=== PATIENT | female | born 1980 | race Caucasian/White ===

== ENCOUNTER 2020-05-12 09:48 | Emergency (ER) | payer OTHER, SELFPAY ==
[2020-05-12 10:01] VITALS: BP 137/81; PULSE 117; RESP 20; TEMP 36.6; O2SAT 100; BMI 25.7
[2020-05-12] MEDS: LORazepam 2 MG/ML VIAL IM ×2 (10:16→10:17)
[2020-05-12] MEDS: Haloperidol Lactate 5 MG/ML VIAL IM (10:16)
--- NOTE | 2020-05-12 10:25 | PC.NURSE ---
PT WILLINGLY RECEIVED THE MEDICATIONS
--- NOTE | 2020-05-12 10:27 | PC.NURSE ---
PT IS MORE COOPERATIVE, RESTING QUIETLY ON THE BED
--- NOTE | 2020-05-12 11:06 | ED.ALCOHOL ---
HPI - Alcohol General Chief Complaint: ETOH/Substance Use Stated Complaint: DETOX Time Seen by Provider: 05/12/20 10:01 Source: EMS Mode of arrival: ambulatory Limitations: no limitations History of Present Illness HPI narrative: Patient presents to ED for alcohol substance abuse. Patient does not want detox. Patient initially came in screaming and then voluntary accepted Ativan and Haldol. patient admits to drinking alcohol Related Data Allergies Allergy/AdvReac Type Severity Reaction Status Date / Time acetaminophen Allergy Unknown ITCHING Unverified 04/06/20 15:19 [From Tylenol-Codeine #2] codeine Allergy Unknown ITCHING Unverified 04/06/20 15:19 [From Tylenol-Codeine #2] naloxone [From NARCAN] Allergy Unknown ITCHING, Unverified 04/06/20 15:19 HIVES, THROAT CLOSES Narcan Allergy Unknown itching Uncoded 05/17/16 00:00 TUNA FISH Allergy Unknown UNKNOWN Uncoded 04/06/20 15:19 Review of Systems Review of Systems: patient denies any physical complaints. Patient just wants to be left alone. Yes all other systems are reviewed and are negative [facility] Social History Social History Advance Directives: No Advance Directives Information Provided: Yes Physical Exam Vital Signs: Vital Signs: Vital Signs Temp Pulse Resp BP Pulse Ox 05/12/20 11:41 18 95 05/12/20 10:01 98 F 117 H 20 137/81 100 Body Mass Index 25.7 Const: General: cooperative, healthy appearing, comfortable and no acute distress Orientation/consciousness: patient oriented x3 HENMT: Head: Yes normal to inspection, No No palpable skull fracture present, No Cook's sign, No contusion, No hematoma, No laceration, No palpable skull fracture and No raccoon eyes Neck: Neck: Yes normal visual inspection Chest: Chest palpation & inspection: normal inspection of the chest and normal palpation of entire chest wall Resp: Effort & Inspection: normal respiratory effort and able to speak in complete sentences Cardio: Jugular venous distension: no JVD Heart sounds: S1 normal heart sound present and S2 normal heart sound present GI: Inspection: Yes normal to inspection Percussion: Yes normal to percussion Auscultation: normal bowel sounds : General: No CVA tenderness and Yes no CVA tenderness Back/Spine/Pelvis: Back: no CVA tenderness, No CVA tenderness and No back tenderness Skin: General skin exam: no rashes or lesions noted Neuro: General: patient oriented x3 Extrem: General: Yes normal to inspection Course Course Course Narrative: Patient presently sleeping after Ativan and Haldol. No signs of trauma. Will discharge after being re-evaluated when awake. Reevaluation(s) Reevaluation #1: patient is already awake walking. Patient alert oriented x3. Patient does not want detox. Mother is in waiting room to order picker/assembler patient for discharge. Time: 11:36 Reevaluation #2: patient went back to bed and is now sleeping. Spoke with mother who be called back to order picker/assembler patient. Mother states patient recently relapsed on alcohol due to her breaking up with her boyfriend. Time: 12:15 Reevaluation #3: Patient's mother came to the ED and picked her up. Mother states she will try to get patient into detox program when patient requests detox. patient presently does not want detox Time: 13:26 MDM - Alcohol MDM Narrative Medical decision making narrative: ETOH/Substance abuse Differential Diagnosis Differential diagnosis: Likely alcohol dependence Discharge Plan Discharge Clinical Impression: Substance abuse Patient Disposition: Elopement Instructions: Polysubstance Abuse (ED) Additional Instructions: Return to the ED for any suicidal / homicidal ideation, auditory / visual hallucinations, physical complaints, or any other concerning symptoms. Referrals: Hadley cJ MD [Primary Care Provider] - 2 days ( Recommend detox.) Interventions: ED Discharge Assessment Last Done: 05/12/20 13:13 Discharge Date/Time: 05/12/20 13:15 Print Language: Omani
[2020-05-12 11:41] VITALS: RESP 18; O2SAT 95
== END 2020-05-12 13:15 | disposition left against medical advice (07) ==
PROVIDERS: Emergency Provider Emergency Medicine; PCP Internal Medicine
DX: F10.10 Alcohol abuse, uncomplicated (principal); Y90.9 Presence of alcohol in blood, level not specified
CPT/HCPCS: 96372; 99284; J2060

== ENCOUNTER 2020-08-11 17:16 | Outpatient (REF) | payer OTHER, SELFPAY | END 2020-08-11 17:17 | disposition home or self-care (01) | LOC: HO.LAB 17:16 | PROVIDERS: Visit Provider Internal Medicine | DX: Z20.822 Contact with and (suspected) exposure to COVID-19 (principal) | CPT/HCPCS: 36415; C9803; U0003 ==

== ENCOUNTER 2020-11-06 12:08 | Outpatient (REF) | payer OTHER, SELFPAY ==
[2020-11-06 12:36] LABS: COVID-19 Test Negative (Negative)
== END 2020-11-06 12:09 | disposition home or self-care (01) ==
LOC: HO.LAB 12:08
PROVIDERS: Visit Provider Internal Medicine
DX: Z20.822 Contact with and (suspected) exposure to COVID-19 (principal)
CPT/HCPCS: 36415; 87635; C9803

== ENCOUNTER 2021-04-09 21:57 | Emergency (ER) | payer OTHER, SELFPAY ==
[2021-04-09 22:11] VITALS: BP 140/84; PULSE 99; RESP 16; TEMP 36.8; O2SAT 97; BMI 28.7
--- NOTE | 2021-04-09 22:36 | ED_ITS ---
HPI - Abdominal Pain General Chief Complaint: Abdominal Pain Stated Complaint: abd pain Time Seen by Provider: 04/09/21 22:11 Source: patient and EMS Mode of arrival: EMS Limitations: no limitations History of Present Illness HPI narrative: 40 yo female with past medical history of anxiety, depression, pancreatitis, alcohol abuse, substance abuse on methadone daily here with complaints of upper abdominal pain x 3 days with nausea. No vomiting. Patient tells me she has been on an binge drinking alcohol daily for 4 days d/t anxiety. No diarrhea, constipation, urinary symptoms, fevers, chills. Related Data Home Medications Medication Instructions Recorded Confirmed polyethylene glycol 3350 17 17 g PO DAILY 05/24/20 12/12/20 gram/dose oral powder methadone 10 mg/mL oral concentrate 179 mg PO DAILY ml 09/28/20 12/12/20 Previous Rx's Medication Instructions Recorded ondansetron 4 mg disintegrating 4 mg PO Q6H PRN #30 tab 05/18/20 tablet nicotine 21 mg/24 hr daily 1 patch TRANSDERMAL DAILY 7 Days 09/21/20 transdermal patch #7 ea nicotine 7 mg/24 hr daily 1 patch TRANSDERMAL Q24H 14 Days 12/12/20 transdermal patch #14 ea amitriptyline 50 mg tablet 50 mg PO BEDTIME #30 tab 02/05/21 nicotine 14 mg/24 hr daily 1 patch TRANSDERMAL DAILY 7 Days 03/13/21 transdermal patch #7 ea lorazepam 2 mg tablet 2 mg PO BID PRN 30 Days #60 tab 04/05/21 Allergies Allergy/AdvReac Type Severity Reaction Status Date / Time codeine Allergy Mild ITCHING Verified 12/12/20 09:49 [From Tylenol-Codeine #2] naloxone [From NARCAN] Allergy Unknown ITCHING, Verified 12/12/20 09:49 HIVES, THROAT CLOSES clonazepam AdvReac Mild headaches,d Verified 12/12/20 09:49 izziness TUNA FISH Allergy Unknown UNKNOWN Uncoded 12/12/20 09:49 Review of Systems Review of Systems Yes all other systems are reviewed and are negative Constitutional: Reports no additional constitutional complaints, Denies body ache(s), Denies chills, Denies fever(s), Denies headache(s) and Denies weakness Eyes: Reports no additional eye complaints and Denies change in vision Reports system reviewed and no additional complaints, except as documented, Seun es dizziness, Denies headache(s), Denies nasal congestion, Denies nasal discharge and Denies neck pain Cardiovascular: Reports no additional cardiovascular complaints, Denies chest pain, Denies leg edema and Denies dyspnea Respiratory: Reports no additional respiratory complaints, Denies cough and Denies dyspnea Gastrointestinal: Reports no additional gastrointestinal complaints, Reports abdominal pain, Denies diarrhea, Reports nausea and Denies vomiting Genitourinary: Reports no additional female genitourinary complaints and Denies urinary incontinence Musculoskeletal: Reports no additional musculoskeletal complaints, Denies back pain, Denies arthralgias, Denies joint swelling, Denies neck pain, Denies numbness and Denies tingling Skin/Breast: Reports system reviewed and no additional complaints, except as docu and Denies rash Reports system reviewed and no additional complaints, except as documented, Denies Abnormal speech present, Denies dizziness, Denies headache(s), Denies numbness, Denies tingling and Denies weakness Physical Exam Vital Signs: Vital Signs: Last Vital Signs Temp 98.3 F 04/09/21 22:11 Pulse 99 04/09/21 22:11 Resp 16 04/09/21 22:11 BP 140/84 H 04/09/21 22:11 Pulse Ox 97 04/09/21 22:11 Body Mass Index 28.7 Const: General: cooperative, healthy appearing, comfortable and no acute distress Orientation/consciousness: patient oriented x3 Limitations: no limitations HENMT: Head: Yes normal to inspection Ears: hearing grossly normal bilaterally General nose exam: Normal external nose present Face and sinus: Yes normal facial exam Mouth: Normal oral and palatal mucosa present Throat: Yes posterior oropharynx normal Eyes: General: appearance normal, both eyes and all related structures Pupils: Equal, round and reactive pupils present Neck: Neck: Yes normal visual inspection Chest: Chest palpation & inspection: normal inspection of the chest Resp: Effort & Inspection: normal respiratory effort Auscultation: clear to auscultation bilaterally Cardio: Rate: regular rate Rhythm: regular rhythm Peripheral pulses: Peripheral pulses 2+ throughout GI: Inspection: Yes normal to inspection Palpation (GI): Soft to palpation and Tenderness to palpation present (GI) (epigastric. no rebound or guarding ) Auscultation: normal bowel sounds Back/Spine/Pelvis: Thoracic/Lumbar Spine: thoracic and lumbar spine normal to inspection Skin: General skin exam: no rashes or lesions noted Neuro: General: patient oriented x3, no focal motor deficits and normal sensation to monofilament Cranial nerves: Yes Equal, round and reactive pupils present Cognition (Neuro): normal cognition Speech: No Abnormal speech present Gait exam (Neuro): Normal gait present Motor exam (neuro): 5/5 motor strength present throughout Extrem: General: Yes normal to inspection, Yes no pedal edema and Yes no calf tenderness Course Course Course Narrative: 40 yo female here with upper abdominal pain x 3 days with nausea. ALso feeling anxious, wants to speak to someone . No SI. Has been on a binge drinking alcohol last 3-4 days On exam has some mild tenderness in the epigastric with no rebound or guarding. Will check labs, UA. Will give GI cocktail. Place consult for care team [id number]-Sign out to night team pending above. MDM - Abdominal Pain Differential Diagnosis Differential diagnosis: Likely gastritis and pancreatitis Medical Records Attestation: I reviewed the patient's medical records. Lab Data Attestation: I reviewed the patient's lab results. Result diagrams: 04/10/21 00:41 04/10/21 00:41 Discharge Plan Discharge Clinical Impression: Anxiety Prescriptions: No Action nicotine 21 mg/24 hr patch 24 hour 1 patch transdermal DAILY 7 Days Qty: 7 RF: 0 amitriptyline 50 mg tablet 50 mg PO BEDTIME Qty: 30 RF: 3 nicotine 14 mg/24 hr patch 24 hour 1 patch transdermal DAILY 7 Days Qty: 7 RF: 0 lorazepam 2 mg tablet 2 mg PO BID PRN (Reason: anxiety) 30 Days Qty: 60 RF: 0 methadone 10 mg/mL concentrate 179 mg PO DAILY RF: 0 nicotine 7 mg/24 hr patch 24 hour 1 patch transdermal Q24H 14 Days Qty: 14 RF: 3 ondansetron 4 mg tablet,disintegrating 4 mg PO Q6H PRN (Reason: nausea and vomiting) Qty: 30 RF: 0 polyethylene glycol 3350 17 gram/dose powder 17 g PO DAILY RF: 0 PMFSH Past Medical History Attestation statement: The following information was validated with the patient. Source: old records reviewed and nursing notes reviewed Medical History Anxiety Cellulitis of left ankle Chronic pancreatitis Constipation History of seizures History of substance abuse Insomnia Overweight (BMI 25.0-29.9) Smoker Surgical History No pertinent past surgical history Family History Family History Father Hypertension Mother Medical history unknown Paternal Grandmother Lung cancer Paternal Grandfather Bone cancer Maternal Uncle Mouth cancer Social History Social History Alcohol intake: former Substance Use Type: Heroin and Opiates Advance Directives: No Advance Directives Information Provided: No
[2021-04-09] MEDS: Magnesium Hydrox/Alum Hydrox 30 ML ORAL.SUSP PO (23:19)
[2021-04-09] MEDS: Lidocaine HCl Viscous 2 % 15 ML SOLUTION MUCOUS MEM (23:20)
[2021-04-10 00:45] LABS: MANUAL DIFF FLAG NO
[2021-04-10 00:46] LABS: Basophils Percent Auto 0.4 % (0-2); Eosinophils Absolute Auto 0.1 X10*3/uL (0.0-0.4); Eosinophils Percent Auto 1.4 % (0-4); Hematocrit 31.7 % (37-47); Imm Gran Abs Auto 0.01 X10*3/uL (0.00-0.03); Imm Gran Pct Auto 0.2 % (0.0-0.4); Lymphocytes Absolute Auto 2.6 X10*3/uL (1.2-4.9); Mean Corpuscular HGB Conc 34.7 g/dl (31.0-35.0); Mean Corpuscular Hemoglobin 29.8 pg (27.0-33.0); Mean Corpuscular Volume 85.9 fL (80-98); Mean Platelet Volume 11.3 fL (9.4-12.3); Monocytes Absolute Auto 0.4 X10*3/uL (0.1-1.2); Monocytes Percent Auto 7.2 % (2-11); Neutrophils Absolute Auto 2.1 X10*3/uL (2.0-8.3); Neutrophils Percent Auto 40.8 % (45-73); Platelet Count 225 X10*3/uL (160-400); Red Blood Count 3.69 X10*6/uL (4.20-5.50); Red Cell Distribution Width 12.4 % (11.0-16.0); White Blood Count 5.2 X10*3/uL (4.8-10.8)
[2021-04-10 01:01] LABS: Ethanol 206 mg/dL
[2021-04-10 01:03] LABS: Alanine Aminotransferase 41 U/L (0-31); Albumin Level 4.1 g/dL (3.5-5.0); Alkaline Phosphatase 71 U/L (39-117); Anion Gap 13 (12-20); Aspartate Amino Transferase 37 U/L (5-31); Bilirubin Direct < 0.2 mg/dL (0.0-0.5); Bilirubin Total 0.3 mg/dL (0.0-1.0); Blood Urea Nitrogen 10 mg/dL (9-16); Calcium 8.9 mg/dL (8.4-10.2); Carbon Dioxide 26 mmol/L (22-29); Chloride 105 mmol/L (96-108); Creatinine Clr Calc Pharmacy 82.6; Estimated Glomerular Filt Rate > 60; Glucose Random 98 mg/dL (60-115); Lipase 35 U/L (8-78); Potassium 3.9 mmol/L (3.3-5.1); Sodium 140 mmol/L (135-145); Total Protein 6.9 g/dL (6.5-8.0)
[2021-04-10 02:37] VITALS: BP 123/81; PULSE 97; RESP 16; O2SAT 98
[2021-04-10] MEDS: Omeprazole 40 MG CAPSULE.DR PO (02:38)
== END 2021-04-10 02:42 | disposition home or self-care (01) ==
PROVIDERS: Nurse Practitioner Family; Emergency Provider Emergency Medicine
DX: R10.10 Upper abdominal pain, unspecified (principal); F41.1 Generalized anxiety disorder; F43.0 Acute stress reaction; F11.90 Opioid use, unspecified, uncomplicated; Z87.891 Personal history of nicotine dependence; Z79.899 Other long term (current) drug therapy
CPT/HCPCS: 36415; 80048; 80076; 82077; 83690; 85025; 99284

== ENCOUNTER 2021-04-12 01:40 | Emergency (ER) | payer OTHER, SELFPAY | END 2021-04-12 02:15 | disposition left against medical advice (07) | PROVIDERS: Emergency Provider Emergency Medicine; PCP Internal Medicine | DX: R10.9 Unspecified abdominal pain (principal); R11.10 Vomiting, unspecified ==

== ENCOUNTER 2021-04-14 16:17 | Emergency (ER) | payer OTHER, SELFPAY ==
[2021-04-14 16:24] VITALS: BP 132/75; PULSE 88; O2SAT 100
[2021-04-14 16:27] VITALS: BP 137/80; PULSE 87; RESP 18; TEMP 36.7; O2SAT 99; BMI 29.0
--- NOTE | 2021-04-14 16:34 | ED.GENADULT ---
HPI - General Adult General Chief complaint: General Medical Stated complaint: ABD PAIN,?AMS D/T PRESCIPTION MEDS Time Seen by Provider: 04/14/21 16:34 Source: patient Mode of arrival: EMS Limitations: no limitations History of Present Illness HPI narrative: Patient came from home by ambulance for abdominal pain for last 1 week nausea unable take much food on arrival patient been seen drowsy and sleepy said that she took 2 Ativan tab prior to arrival been drinking for last 2 days missed her methadone today patient states that had history of pancreatitis in the past Related Data Home Medications Medication Instructions Recorded Confirmed polyethylene glycol 3350 17 17 g PO DAILY 05/24/20 12/12/20 gram/dose oral powder methadone 10 mg/mL oral concentrate 179 mg PO DAILY ml 09/28/20 12/12/20 Previous Rx's Medication Instructions Recorded ondansetron 4 mg disintegrating 4 mg PO Q6H PRN #30 tab 05/18/20 tablet nicotine 21 mg/24 hr daily 1 patch TRANSDERMAL DAILY 7 Days 09/21/20 transdermal patch #7 ea nicotine 7 mg/24 hr daily 1 patch TRANSDERMAL Q24H 14 Days 12/12/20 transdermal patch #14 ea amitriptyline 50 mg tablet 50 mg PO BEDTIME #30 tab 02/05/21 nicotine 14 mg/24 hr daily 1 patch TRANSDERMAL DAILY 7 Days 03/13/21 transdermal patch #7 ea lorazepam 2 mg tablet 2 mg PO BID PRN 30 Days #60 tab 04/05/21 omeprazole 40 mg capsule,delayed 40 mg PO DAILY #30 cap 04/10/21 release sucralfate 1 gram tablet 1 g PO TID #90 tab 04/10/21 omeprazole 40 mg capsule,delayed 40 mg PO DAILY #30 cap 04/14/21 release Allergies Allergy/AdvReac Type Severity Reaction Status Date / Time codeine Allergy Mild ITCHING Verified 12/12/20 09:49 [From Tylenol-Codeine #2] naloxone [From NARCAN] Allergy Unknown ITCHING, Verified 12/12/20 09:49 HIVES, THROAT CLOSES clonazepam AdvReac Mild headaches,d Verified 12/12/20 09:49 izziness TUNA FISH Allergy Unknown UNKNOWN Uncoded 12/12/20 09:49 Review of Systems Review of Systems: Yes all other systems are reviewed and are negative PMFSH Past Medical History Medical History Anxiety Cellulitis of left ankle Chronic pancreatitis Constipation History of seizures History of substance abuse Insomnia Overweight (BMI 25.0-29.9) Smoker Surgical History No pertinent past surgical history Family History Family History Father Hypertension Mother Medical history unknown Paternal Grandmother Lung cancer Paternal Grandfather Bone cancer Maternal Uncle Mouth cancer Social History Social History Alcohol intake: current Alcohol intake frequency: other Alcohol type: hard liquor Patient Tobacco Use Status: Current everyday Tobacco user Substance Use Type: Unknown Advance Directives: No Advance Directives Information Provided: No Patient : No Physical Exam Vital Signs: Vital Signs: Last Vital Signs Temp 98.0 F 04/14/21 16:27 Pulse 87 04/14/21 16:27 Resp 18 04/14/21 16:27 BP 137/80 04/14/21 16:27 Pulse Ox 99 04/14/21 16:27 Body Mass Index 29.0 Appearance: Alert. Oriented X3. No acute distress. Drowsy slipping off easily Eyes: PERRLA, No Nystagmus ENT: Pharynx normal. Oral Mucosa moist Neck: Normal inspection. Neck supple. CVS: Normal heart rate and rhythm. Pulses normal. Respiratory: No respiratory distress. Equal air entry bilateral, no wheezing/rales/rhonchi Abdomen: Soft and diffuse abdominal tenderness Bowel sounds are present, no mass palpable, no CVA tenderness Skin: Skin warm and dry. Normal skin color. Normal skin turgor. Extremities: No lower extremity edema. No calf tenderness Neuro: Oriented X 3. No motor deficit. No sensory deficit. Medical Decision Making MDM Narrative Medical decision making narrative: Patient's history of alcohol abuse took to benzo before each came last drink was yesterday afraid of drinking again asking for help to get care team to talk to the patient. Workup is negative show urine tox showed only benzos patient alert oriented x3 at this time eating food in the ER with discharge patient home Lab Data Lab results reviewed: Yes I reviewed the patient's lab results. Result diagrams: 04/14/21 17:29 04/14/21 17:29 Labs: Lab Results 0904/14/21 04/14/21 Range/Units 17:29 17:29 17:29 WBC 9.2 (4.8-10.8) X10*3/uL RBC 3.86 L (4.20-5.50) X10*6/uL Hgb 11.6 L (12.0-16.0) g/dl Hct 32.5 L (37-47) % MCV 84.2 (80-98) fL MCH 30.1 (27.0-33.0) pg MCHC 35.7 H (31.0-35.0) g/dl RDW 12.8 (11.0-16.0) % Plt Count 201 (160-400) X10*3/uL MPV 11.0 (9.4-12.3) fL Immature Gran % (Auto) 0.2 (0.0-0.4) % Neut % (Auto) 76.1 H (45-73) % Lymph % (Auto) 19.3 L (20-40) % [place] % (Auto) 4.1 (2-11) % Eos % (Auto) 0.1 (0-4) % Baso % (Auto) 0.2 (0-2) % Lymph # (Auto) 1.8 (1.2-4.9) X10*3/uL [place] # (Auto) 0.4 (0.1-1.2) X10*3/uL Eos # (Auto) 0.0 (0.0-0.4) X10*3/uL Baso # (Auto) 0.0 (0.0-0.2) X10*3/uL Abs Immat Gran (auto) 0.02 (0.00-0.03) X10*3/uL Absolute Neuts (auto) 7.0 (2.0-8.3) X10*3/uL Absolute Nucleated RBC 0.000 (0.0-0.012) X10*3/uL Nucleated RBC % (auto) 0.0 (0.0-0.2) /100WBC Sodium 139 (135-145) mmol/L Potassium 3.1 L D (3.3-5.1) mmol/L Chloride 109 H (96-108) mmol/L Carbon Dioxide 17 L (22-29) mmol/L Anion Gap 16 (12-20) BUN 17 H D (9-16) mg/dL Creatinine 0.95 (0.5-1.4) mg/dL Estim Creat Clear Calc 83.9 Estimated GFR > 60 Random Glucose 77 (60-115) mg/dL Calcium 7.9 L D (8.4-10.2) mg/dL Total Bilirubin 0.4 (0.0-1.0) mg/dL Direct Bilirubin 0.2 (0.0-0.5) mg/dL AST 49 H (5-31) U/L ALT 33 H (0-31) U/L Alkaline Phosphatase 67 (39-117) U/L Total Protein 7.0 (6.5-8.0) g/dL Albumin 4.1 (3.5-5.0) g/dL Lipase 15 (8-78) U/L Urine Color Urine Appearance Urine pH (5.0-8.0) Ur Specific [place] (1.005-1.025) Urine Protein (NEG-TRACE) MG/DL Urine Glucose (UA) (NEG) MG/DL Urine Ketones (NEG) MG/DL Urine Blood (NEG) Urine Nitrite (NEG) Ur Leukocyte Esterase (NEG) Urine RBC (0) /HPF Urine WBC (0-4) /HPF Ur Squamous Epith Cells /LPF Urine Bacteria /LPF Urine Mucus /LPF Urine Opiates Screen (Not Detect) Urine Fentanyl Screen (Not Detect) Ur Barbiturates Screen (Not Detect) Ur Phencyclidine Scrn (Not Detect) Ur Amphetamines Screen (Not Detect) U Benzodiazepines Scrn (Not Detect) Urine Cocaine Screen (Not Detect) U Marijuana (THC) Screen (Not Detect) Ethyl Alcohol < 10 mg/dL 04/14/21 04/14/21 Range/Units 19:22 19:22 WBC (4.8-10.8) X10*3/uL RBC (4.20-5.50) X10*6/uL Hgb (12.0-16.0) g/dl Hct (37-47) % MCV (80-98) fL MCH (27.0-33.0) pg MCHC (31.0-35.0) g/dl RDW (11.0-16.0) % Plt Count (160-400) X10*3/uL MPV (9.4-12.3) fL Immature Gran % (Auto) (0.0-0.4) % Neut % (Auto) (45-73) % Lymph % (Auto) (20-40) % [place] % (Auto) (2-11) % Eos % (Auto) (0-4) % Baso % (Auto) (0-2) % Lymph # (Auto) (1.2-4.9) X10*3/uL [place] # (Auto) (0.1-1.2) X10*3/uL Eos # (Auto) (0.0-0.4) X10*3/uL Baso # (Auto) (0.0-0.2) X10*3/uL Abs Immat Gran (auto) (0.00-0.03) X10*3/uL Absolute Neuts (auto) (2.0-8.3) X10*3/uL Absolute Nucleated RBC (0.0-0.012) X10*3/uL Nucleated RBC % (auto) (0.0-0.2) /100WBC Sodium (135-145) mmol/L Potassium (3.3-5.1) mmol/L Chloride (96-108) mmol/L Carbon Dioxide (22-29) mmol/L Anion Gap (12-20) BUN (9-16) mg/dL Creatinine (0.5-1.4) mg/dL Estim Creat Clear Calc Estimated GFR Random Glucose (60-115) mg/dL Calcium (8.4-10.2) mg/dL Total Bilirubin (0.0-1.0) mg/dL Direct Bilirubin (0.0-0.5) mg/dL AST (5-31) U/L ALT (0-31) U/L Alkaline Phosphatase (39-117) U/L Total Protein (6.5-8.0) g/dL Albumin (3.5-5.0) g/dL Lipase (8-78) U/L Urine Color YELLOW Urine Appearance CLEAR Urine pH 6.0 (5.0-8.0) Ur Specific [place] >= 1.030 H (1.005-1.025) Urine Protein TRACE (NEG-TRACE) MG/DL Urine Glucose (UA) NEG (NEG) MG/DL Urine Ketones 5 (NEG) MG/DL Urine Blood TRACE (NEG) Urine Nitrite NEG (NEG) Ur Leukocyte Esterase NEG (NEG) Urine RBC 0-2 (0) /HPF Urine WBC 0-2 (0-4) /HPF Ur Squamous Epith Cells 2+ /LPF Urine Bacteria NONE /LPF Urine Mucus 1+ /LPF Urine Opiates Screen Not Detected (Not Detect) Urine Fentanyl Screen Not Detected (Not Detect) Ur Barbiturates Screen Not Detected (Not Detect) Ur Phencyclidine Scrn Not Detected (Not Detect) Ur Amphetamines Screen Not Detected (Not Detect) U Benzodiazepines Scrn POSITIVE H (Not Detect) Urine Cocaine Screen Not Detected (Not Detect) U Marijuana (THC) Screen Not Detected (Not Detect) Ethyl Alcohol mg/dL Discharge Plan Discharge Clinical Impression: Alcohol abuse Gastritis Qualifiers: Gastritis type: alcoholic Chronicity: acute Gastritis bleeding: without bleeding Qualified Code(s): K29.20 - Alcoholic gastritis without bleeding Patient Disposition: Home, Self-Care Instructions: Gastritis (ED), Abuse of Alcohol (ED) Additional Instructions: stop drinking alcohol follow up with detox meds for gastritis Prescriptions: New omeprazole 40 mg capsule,delayed release(DR/EC) 40 mg PO DAILY Qty: 30 RF: 0 No Action nicotine 21 mg/24 hr patch 24 hour 1 patch transdermal DAILY 7 Days Qty: 7 RF: 0 amitriptyline 50 mg tablet 50 mg PO BEDTIME Qty: 30 RF: 3 nicotine 14 mg/24 hr patch 24 hour 1 patch transdermal DAILY 7 Days Qty: 7 RF: 0 lorazepam 2 mg tablet 2 mg PO BID PRN (Reason: anxiety) 30 Days Qty: 60 RF: 0 omeprazole 40 mg capsule,delayed release(DR/EC) 40 mg PO DAILY Qty: 30 RF: 0 sucralfate 1 gram tablet 1 g PO TID Qty: 90 RF: 0 methadone 10 mg/mL concentrate 179 mg PO DAILY RF: 0 nicotine 7 mg/24 hr patch 24 hour 1 patch transdermal Q24H 14 Days Qty: 14 RF: 3 ondansetron 4 mg tablet,disintegrating 4 mg PO Q6H PRN (Reason: nausea and vomiting) Qty: 30 RF: 0 polyethylene glycol 3350 17 gram/dose powder 17 g PO DAILY RF: 0 Interventions: ED Discharge Assessment Last Done: 04/14/21 20:55 Discharge Date/Time: 04/14/21 20:56
--- NOTE | 2021-04-14 16:38 | PC.NURSE ---
Pt is very somnolent nodding off during the assessment and unable to answer some questions about substance use. States that she is n every day drinker with hard alcohol but unable to rspond regarding how much per day. She states that she has not drank in 2 days. HX of ETOH withdrawal but denies seizures or hallucinations. States that she is on methadone but did not recieve dose today. She also has benzos at home for anxiety. It is unclear how much she took at this time. Pupils are about 3mm.
[2021-04-14 17:34] LABS: MANUAL DIFF FLAG NO
[2021-04-14 17:36] LABS: Basophils Percent Auto 0.2 % (0-2); Eosinophils Percent Auto 0.1 % (0-4); Hematocrit 32.5 % (37-47); Hemoglobin 11.6 g/dl (12.0-16.0); Imm Gran Abs Auto 0.02 X10*3/uL (0.00-0.03); Imm Gran Pct Auto 0.2 % (0.0-0.4); Lymphocytes Absolute Auto 1.8 X10*3/uL (1.2-4.9); Lymphocytes Percent Auto 19.3 % (20-40); Mean Corpuscular HGB Conc 35.7 g/dl (31.0-35.0); Mean Corpuscular Hemoglobin 30.1 pg (27.0-33.0); Mean Corpuscular Volume 84.2 fL (80-98); Monocytes Absolute Auto 0.4 X10*3/uL (0.1-1.2); Monocytes Percent Auto 4.1 % (2-11); Neutrophils Percent Auto 76.1 % (45-73); Platelet Count 201 X10*3/uL (160-400); Red Blood Count 3.86 X10*6/uL (4.20-5.50); Red Cell Distribution Width 12.8 % (11.0-16.0); White Blood Count 9.2 X10*3/uL (4.8-10.8)
[2021-04-14 17:48] LABS: Ethanol < 10 mg/dL
[2021-04-14 17:51] LABS: Alanine Aminotransferase 33 U/L (0-31); Albumin Level 4.1 g/dL (3.5-5.0); Alkaline Phosphatase 67 U/L (39-117); Anion Gap 16 (12-20); Aspartate Amino Transferase 49 U/L (5-31); Bilirubin Direct 0.2 mg/dL (0.0-0.5); Bilirubin Total 0.4 mg/dL (0.0-1.0); Blood Urea Nitrogen 17 mg/dL (9-16); Calcium 7.9 mg/dL (8.4-10.2); Carbon Dioxide 17 mmol/L (22-29); Chloride 109 mmol/L (96-108); Creatinine Clr Calc Pharmacy 83.9; Estimated Glomerular Filt Rate > 60; Glucose Random 77 mg/dL (60-115); Lipase 15 U/L (8-78); Potassium 3.1 mmol/L (3.3-5.1); Sodium 139 mmol/L (135-145)
[2021-04-14 19:31] LABS: Appearance Urine CLEAR; Color Urine YELLOW; Glucose Urine UA NEG (NEG); Leukocyte Esterase Urine NEG (NEG); Nitrite Urine NEG (NEG); Specific Gravity - Urine >= 1.030 (1.005-1.025); UACC Culture Trigger NO; Urine Blood TRACE (NEG); Urine Ketones 5 MG/DL (NEG); Urine Protein TRACE MG/DL (NEG-TRACE)
[2021-04-14 19:41] LABS: Mucus Urine 1+ /LPF; RBC Urine 0-2 /HPF (0); Squamous Epithelial Cell Urine 2+ /LPF; WBC Urine 0-2 /HPF (0-4)
[2021-04-14 19:42] LABS: Amphetamine Screen Urine Not Detected (Not Detect); Barbiturates, Urine Not Detected (Not Detect); Benzodiazepines Screen Urine POSITIVE (Not Detect); Cannabinoid Screen Urine Not Detected (Not Detect); Cocaine Screen Urine Not Detected (Not Detect); Fentanyl, urine Not Detected (Not Detect); Opiate Screen Urine Not Detected (Not Detect); Phencyclidine Screen Urine Not Detected (Not Detect)
[2021-04-14] MEDS: Omeprazole 40 MG CAPSULE.DR PO (20:19)
== END 2021-04-14 20:56 | disposition home or self-care (01) ==
PROVIDERS: Emergency Provider Internal Medicine; PCP Internal Medicine
DX: K29.20 Alcoholic gastritis without bleeding (principal); Y90.0 Blood alcohol level of less than 20 mg/100 ml; F17.200 Nicotine dependence, unspecified, uncomplicated; Z71.6 Tobacco abuse counseling; Z79.899 Other long term (current) drug therapy
CPT/HCPCS: 36415; 80048; 80076; 80307; 81001; 82077; 83690; 85025; 99283

== ENCOUNTER 2021-04-20 20:02 | Emergency (ER) | payer OTHER, SELFPAY ==
[2021-04-20 20:07] VITALS: BP 134/80; PULSE 86; O2SAT 100
[2021-04-20 21:03] VITALS: BP 139/83; PULSE 87; RESP 16; TEMP 36.7; O2SAT 96; BMI 30.2
--- NOTE | 2021-04-20 22:15 | ED.GENADULT ---
HPI - General Adult General Chief complaint: General Medical Stated complaint: BACK PAIN/BILAT PEDAL EDEMA Time Seen by Provider: 04/20/21 21:46 Source: patient Mode of arrival: ambulatory Limitations: no limitations History of Present Illness HPI narrative: 40-year-old female presents emergency room with multiple complaints. Patient has history of alcohol abuse has been seen here twice as well as [facility] over the past week. Patient is here after relapsing on alcohol today she is complaining of bilateral lower extremity swelling he states he has got chronic constipation intermittent pain. She has no pain at this time she denies fever cough shortness of breath nausea vomiting or diarrhea. States she does have some mild back pain as well. She has not taken anything for the back pain. Related Data Home Medications Medication Instructions Recorded Confirmed polyethylene glycol 3350 17 17 g PO DAILY 05/24/20 12/12/20 gram/dose oral powder methadone 10 mg/mL oral concentrate 179 mg PO DAILY ml 09/28/20 12/12/20 Previous Rx's Medication Instructions Recorded ondansetron 4 mg disintegrating 4 mg PO Q6H PRN #30 tab 05/18/20 tablet nicotine 21 mg/24 hr daily 1 patch TRANSDERMAL DAILY 7 Days 09/21/20 transdermal patch #7 ea nicotine 7 mg/24 hr daily 1 patch TRANSDERMAL Q24H 14 Days 12/12/20 transdermal patch #14 ea amitriptyline 50 mg tablet 50 mg PO BEDTIME #30 tab 02/05/21 nicotine 14 mg/24 hr daily 1 patch TRANSDERMAL DAILY 7 Days 03/13/21 transdermal patch #7 ea lorazepam 2 mg tablet 2 mg PO BID PRN 30 Days #60 tab 04/05/21 omeprazole 40 mg capsule,delayed 40 mg PO DAILY #30 cap 04/10/21 release sucralfate 1 gram tablet 1 g PO TID #90 tab 04/10/21 omeprazole 40 mg capsule,delayed 40 mg PO DAILY #30 cap 04/14/21 release Allergies Allergy/AdvReac Type Severity Reaction Status Date / Time codeine Allergy Mild ITCHING Verified 12/12/20 09:49 [From Tylenol-Codeine #2] naloxone [From NARCAN] Allergy Unknown ITCHING, Verified 12/12/20 09:49 HIVES, THROAT CLOSES clonazepam AdvReac Mild headaches,d Verified 12/12/20 09:49 izziness TUNA FISH Allergy Unknown UNKNOWN Uncoded 12/12/20 09:49 [facility] Past Medical History Medical History Anxiety Cellulitis of left ankle Chronic pancreatitis Constipation History of seizures History of substance abuse Insomnia Overweight (BMI 25.0-29.9) Smoker Surgical History No pertinent past surgical history Family History Family History Father Hypertension Mother Medical history unknown Paternal Grandmother Lung cancer Paternal Grandfather Bone cancer Maternal Uncle Mouth cancer Social History Social History Alcohol intake: current Alcohol intake frequency: other Alcohol type: hard liquor Patient Tobacco Use Status: Current everyday Tobacco user Substance Use Type: Unknown Advance Directives: No Physical Exam Vital Signs: Vital Signs: Last Vital Signs Temp 98.0 F 04/20/21 21:03 Pulse 87 04/20/21 21:03 Resp 16 04/20/21 21:03 BP 139/83 04/20/21 21:03 Pulse Ox 96 04/20/21 21:03 Body Mass Index 30.2 Medical Decision Making MDM Narrative Medical decision making narrative: Patient has multiple complaints over some magnesium citrate for constipation of her kidney function she has no CVA tenderness anything his kidney stone she has no pain to palpation of her abdomen. She does have some lower extremity swelling I will have her follow-up with her primary care doctor. I explained the need to follow up and get stockings for her swelling but check a BNP with rest of her labs. Patient still no urinary symptoms labs were all normal lipase is normal patient does have a mild elevation in her BNP male sent home Need to hand picker compression stockings. Also the patient for discharge. Lab Data Result diagrams: 04/20/21 22:34 04/20/21 22:34 Labs: Lab Results 04/20/21 04/20/21 04/20/21 Range/Units 22:34 22:34 22:34 WBC 4.1 L (4.8-10.8) X10*3/uL RBC 3.64 L (4.20-5.50) X10*6/uL Hgb 10.8 L (12.0-16.0) g/dl Hct 32.3 L (37-47) % MCV 88.7 (80-98) fL MCH 29.7 (27.0-33.0) pg MCHC 33.4 (31.0-35.0) g/dl RDW 12.8 (11.0-16.0) % Plt Count 159 L (160-400) X10*3/uL MPV 11.6 (9.4-12.3) fL Immature Gran % (Auto) 0.2 (0.0-0.4) % Neut % (Auto) 44.8 L (45-73) % Lymph % (Auto) 39.5 (20-40) % [place] % (Auto) 11.9 H (2-11) % Eos % (Auto) 3.1 (0-4) % Baso % (Auto) 0.5 (0-2) % Lymph # (Auto) 1.6 (1.2-4.9) X10*3/uL [place] # (Auto) 0.5 (0.1-1.2) X10*3/uL Eos # (Auto) 0.1 (0.0-0.4) X10*3/uL Baso # (Auto) 0.0 (0.0-0.2) X10*3/uL Abs Immat Gran (auto) 0.01 (0.00-0.03) X10*3/uL Absolute Neuts (auto) 1.9 L (2.0-8.3) X10*3/uL Absolute Nucleated RBC 0.000 (0.0-0.012) X10*3/uL Nucleated RBC % (auto) 0.0 (0.0-0.2) /100WBC Sodium 137 (135-145) mmol/L Potassium 3.9 D (3.3-5.1) mmol/L Chloride 100 (96-108) mmol/L Carbon Dioxide 31 H (22-29) mmol/L Anion Gap 10 L (12-20) BUN 12 (9-16) mg/dL Creatinine 0.77 (0.5-1.4) mg/dL Estim Creat Clear Calc 105.5 Estimated GFR > 60 Random Glucose 96 (60-115) mg/dL Calcium 9.2 D (8.4-10.2) mg/dL Total Bilirubin 0.3 (0.0-1.0) mg/dL Direct Bilirubin < 0.2 (0.0-0.5) mg/dL AST 59 H (5-31) U/L ALT 43 H (0-31) U/L Alkaline Phosphatase 72 (39-117) U/L B-Natriuretic Peptide 21 (<100) pg/mL Total Protein 6.7 (6.5-8.0) g/dL Albumin 3.9 (3.5-5.0) g/dL Lipase 20 (8-78) U/L Discharge Plan Discharge Clinical Impression: Edema, Back pain, Localized swelling of both lower legs Patient Disposition: Home, Self-Care Instructions: Acute Low Back Pain (ED), Edema (ED) Additional Instructions: Please go to the pharmacy to get the compression stockings. Please call follow-up with her doctor if you have any other concerns please do not hesitate to come back to emergency department. Prescriptions: No Action nicotine 21 mg/24 hr patch 24 hour 1 patch transdermal DAILY 7 Days Qty: 7 RF: 0 amitriptyline 50 mg tablet 50 mg PO BEDTIME Qty: 30 RF: 3 nicotine 14 mg/24 hr patch 24 hour 1 patch transdermal DAILY 7 Days Qty: 7 RF: 0 lorazepam 2 mg tablet 2 mg PO BID PRN (Reason: anxiety) 30 Days Qty: 60 RF: 0 omeprazole 40 mg capsule,delayed release(DR/EC) 40 mg PO DAILY Qty: 30 RF: 0 sucralfate 1 gram tablet 1 g PO TID Qty: 90 RF: 0 omeprazole 40 mg capsule,delayed release(DR/EC) 40 mg PO DAILY Qty: 30 RF: 0 methadone 10 mg/mL concentrate 179 mg PO DAILY RF: 0 nicotine 7 mg/24 hr patch 24 hour 1 patch transdermal Q24H 14 Days Qty: 14 RF: 3 ondansetron 4 mg tablet,disintegrating 4 mg PO Q6H PRN (Reason: nausea and vomiting) Qty: 30 RF: 0 polyethylene glycol 3350 17 gram/dose powder 17 g PO DAILY RF: 0
[2021-04-20] MEDS: Ketorolac Tromethamine 15 MG/ML VIAL IM (22:25)
[2021-04-20] MEDS: Magnesium Citrate 300 ML SOLUTION PO (22:26)
[2021-04-20 22:40] LABS: MANUAL DIFF FLAG NO
[2021-04-20 22:41] LABS: Basophils Percent Auto 0.5 % (0-2); Eosinophils Absolute Auto 0.1 X10*3/uL (0.0-0.4); Eosinophils Percent Auto 3.1 % (0-4); Hematocrit 32.3 % (37-47); Hemoglobin 10.8 g/dl (12.0-16.0); Imm Gran Abs Auto 0.01 X10*3/uL (0.00-0.03); Imm Gran Pct Auto 0.2 % (0.0-0.4); Lymphocytes Absolute Auto 1.6 X10*3/uL (1.2-4.9); Lymphocytes Percent Auto 39.5 % (20-40); Mean Corpuscular HGB Conc 33.4 g/dl (31.0-35.0); Mean Corpuscular Hemoglobin 29.7 pg (27.0-33.0); Mean Corpuscular Volume 88.7 fL (80-98); Mean Platelet Volume 11.6 fL (9.4-12.3); Monocytes Absolute Auto 0.5 X10*3/uL (0.1-1.2); Monocytes Percent Auto 11.9 % (2-11); Neutrophils Absolute Auto 1.9 X10*3/uL (2.0-8.3); Neutrophils Percent Auto 44.8 % (45-73); Platelet Count 159 X10*3/uL (160-400); Red Blood Count 3.64 X10*6/uL (4.20-5.50); Red Cell Distribution Width 12.8 % (11.0-16.0); White Blood Count 4.1 X10*3/uL (4.8-10.8)
[2021-04-20 22:57] LABS: Alanine Aminotransferase 43 U/L (0-31); Albumin Level 3.9 g/dL (3.5-5.0); Alkaline Phosphatase 72 U/L (39-117); Anion Gap 10 (12-20); Aspartate Amino Transferase 59 U/L (5-31); Bilirubin Direct < 0.2 mg/dL (0.0-0.5); Bilirubin Total 0.3 mg/dL (0.0-1.0); Blood Urea Nitrogen 12 mg/dL (9-16); Calcium 9.2 mg/dL (8.4-10.2); Carbon Dioxide 31 mmol/L (22-29); Chloride 100 mmol/L (96-108); Creatinine Clr Calc Pharmacy 105.5; Estimated Glomerular Filt Rate > 60; Glucose Random 96 mg/dL (60-115); Lipase 20 U/L (8-78); Potassium 3.9 mmol/L (3.3-5.1); Sodium 137 mmol/L (135-145); Total Protein 6.7 g/dL (6.5-8.0)
[2021-04-20 22:59] LABS: B Type Natriuretic Peptide 21 pg/mL (<100)
== END 2021-04-20 23:24 | disposition home or self-care (01) ==
PROVIDERS: Emergency Provider Student in an Organized Health Care Education/Training Program
DX: R60.0 Localized edema (principal); M54.50 Low back pain, unspecified; R06.02 Shortness of breath; Z79.899 Other long term (current) drug therapy; F17.200 Nicotine dependence, unspecified, uncomplicated; Z71.6 Tobacco abuse counseling
CPT/HCPCS: 36415; 80048; 80076; 83690; 83880; 85025; 96372; 99283; 99284; J1885

== ENCOUNTER 2021-06-22 09:52 | Outpatient (REF) | payer OTHER, SELFPAY ==
[2021-06-22 10:10] LABS: MANUAL DIFF FLAG NO
[2021-06-22 10:39] LABS: Basophils Percent Auto 0.5 % (0-2); Eosinophils Absolute Auto 0.2 X10*3/uL (0.0-0.4); Eosinophils Percent Auto 2.8 % (0-4); Hematocrit 35.4 % (37.0-47.0); Hemoglobin 11.8 g/dl (12.0-16.0); Imm Gran Abs Auto 0.05 X10*3/uL (0.00-0.03); Imm Gran Pct Auto 0.8 % (0.0-0.4); Lymphocytes Absolute Auto 1.8 X10*3/uL (1.2-4.9); Lymphocytes Percent Auto 28.8 % (20-40); Mean Corpuscular HGB Conc 33.3 g/dl (31.0-35.0); Mean Corpuscular Hemoglobin 28.4 pg (27.0-33.0); Mean Corpuscular Volume 85.3 fL (80.0-98.0); Mean Platelet Volume 11.2 fL (9.4-12.3); Monocytes Absolute Auto 0.5 X10*3/uL (0.1-1.2); Monocytes Percent Auto 7.7 % (2-11); Neutrophils Absolute Auto 3.6 x10*3/uL (2.0-8.3); Neutrophils Percent Auto 59.4 % (45-73); Platelet Count 266 X10*3/uL (160-400); Red Blood Count 4.15 X10*6/uL (4.20-5.50); Red Cell Distribution Width 12.5 % (11.0-16.0); White Blood Count 6.1 X10*3/uL (4.8-10.8)
[2021-06-22 10:41] LABS: Appearance Urine CLEAR; Color Urine YELLOW; Glucose Urine UA NEG (NEG); Leukocyte Esterase Urine NEG (NEG); Nitrite Urine NEG (NEG); Urine Blood NEG (NEG); Urine Ketones NEG (NEG); Urine Protein NEG (NEG-TRACE)
[2021-06-22 10:46] LABS: Estimated Average Glucose 103 mg/dL; Hemoglobin A1c % 5.2 %
[2021-06-22 11:01] LABS: Alanine Aminotransferase 22 U/L (0-31); Albumin Level 4.1 g/dL (3.5-5.0); Alkaline Phosphatase 88 U/L (39-117); Anion Gap 15 (12-20); Aspartate Amino Transferase 26 U/L (5-31); Bilirubin Total 0.4 mg/dL (0.0-1.0); Blood Urea Nitrogen 10 mg/dL (9-16); Calcium 9.5 mg/dL (8.4-10.2); Carbon Dioxide 26 mmol/L (22-29); Chloride 103 mmol/L (96-108); Cholesterol 232 mg/dL; Estimated Glomerular Filt Rate > 60; Glucose Fasting 91 mg/dL (60-99); HDL Cholesterol 37 mg/dL; Iron 49 mcg/dL (30-160); LDL Cholesterol Calculated 129 mg/dl; Lipase 12 U/L (8-78); Percent Iron Saturation 15 % (15-50); Potassium 4.5 mmol/L (3.3-5.1); Sodium 139 mmol/L (135-145); Total Iron Binding Capacity 331 mcg/dL (228-428); Total Protein 7.4 g/dL (6.5-8.0); Triglycerides 330 mg/dL; Unsaturated Iron Binding 282 ug/dL
[2021-06-22 11:22] LABS: TSH reflex Free T4 3.51 uIU/mL (0.32-4.0); Vitamin D 25-OH Total 31.5 ng/mL (>30)
== END 2021-06-22 09:53 | disposition home or self-care (01) ==
LOC: HO.LAB 09:52
PROVIDERS: PCP Internal Medicine; Visit Provider Internal Medicine
DX: Z00.00 Encounter for general adult medical examination without abnormal findings (principal); D50.9 Iron deficiency anemia, unspecified; E66.3 Overweight; R73.01 Impaired fasting glucose; E55.9 Vitamin D deficiency, unspecified; K86.1 Other chronic pancreatitis; D64.9 Anemia, unspecified
CPT/HCPCS: 36415; 80053; 80061; 81003; 82306; 83036; 83540; 83690; 84443; 85025

== ENCOUNTER 2021-08-27 10:07 | Outpatient (REF) | payer OTHER, SELFPAY ==
[2021-08-27 10:25] LABS: COVID-19 Test Negative (Negative)
== END 2021-08-27 10:08 | disposition home or self-care (01) ==
LOC: HO.LAB 10:07
PROVIDERS: Visit Provider Internal Medicine
DX: Z20.822 Contact with and (suspected) exposure to COVID-19 (principal)
CPT/HCPCS: 87635; C9803

== ENCOUNTER 2022-02-04 15:25 | Emergency (ER) | payer OTHER, SELFPAY | END 2022-02-04 16:27 | disposition left against medical advice (07) | PROVIDERS: Emergency Provider Emergency Medicine | DX: F11.20 Opioid dependence, uncomplicated (principal); Z91.81 History of falling ==

== ENCOUNTER 2022-02-22 09:58 | Emergency (ER) | payer OTHER, SELFPAY ==
[2022-02-22 10:03] VITALS: BP 128/69; PULSE 81; RESP 18; TEMP 36.2; O2SAT 96; BMI 26.6
[2022-02-22 10:55] LABS: Ethanol 209 mg/dL
[2022-02-22 11:01] LABS: Alanine Aminotransferase 31 U/L (0-31); Alkaline Phosphatase 100 U/L (39-117); Anion Gap 16 (12-20); Aspartate Amino Transferase 39 U/L (5-31); Bilirubin Direct < 0.2 mg/dL (0.0-0.5); Bilirubin Total 0.3 mg/dL (0.0-1.0); Blood Urea Nitrogen 4 mg/dL (9-16); Calcium 9.3 mg/dL (8.4-10.2); Carbon Dioxide 27 mmol/L (22-29); Chloride 101 mmol/L (96-108); Creatinine Clr Calc Pharmacy 92.4; Estimated Glomerular Filt Rate > 60; Glucose Random 108 mg/dL (60-115); Lactate Dehydrogenase 249 U/L (122-220); Lipase 27 U/L (8-78); Magnesium 1.9 mg/dL (1.6-2.6); Sodium 140 mmol/L (135-145); Total Protein 6.7 g/dL (6.5-8.0)
[2022-02-22 11:02] LABS: COVID-19 Test Negative (Negative); IDNOW Serial# 16C4AD1C
[2022-02-22 13:54] VITALS: BP 108/75; PULSE 88; RESP 20; TEMP 36.7; O2SAT 98
--- NOTE | 2022-02-22 14:11 | ED.ABDPAIN ---
HPI - Abdominal Pain General Chief Complaint: Abdominal Pain Stated Complaint: pancreatitis Time Seen by Provider: 02/22/22 10:09 Source: patient Mode of arrival: ambulatory Limitations: no limitations History of Present Illness HPI narrative: Patient presents emergency department for evaluation of abdominal pain. Onset reportedly was last night. Points to her epigastric region. She states that she believes she has pancreatitis as she has experienced this in the past of her alcohol consumption. States that she last drank a few ?shots? at 04:00. She has associated nausea but has not had any vomiting. Denies fevers, chills, dizziness, lightheadedness, chest pain, palpitations, shortness of breath, difficulty breathing, constipation, diarrhea, bloody or dark stools, urinary frequency/urgency, possibility of . Related Data Home Medications Medication Instructions Recorded Confirmed methadone 10 mg/mL oral concentrate 70 mg PO DAILY 01/01/22 01/01/22 Previous Rx's Medication Instructions Recorded compress.stocking,knee,reg,lrg #2 ea 04/23/21 furosemide 20 mg tablet (Lasix) 20 mg PO QAM 7 days #7 tabs 04/23/21 cholecalciferol (vitamin D3) 50 50 mcg PO DAILY 30 days #30 caps 08/30/21 mcg (2,000 unit) capsule vitamin B complex (B 1 tab PO DAILY 30 days #30 tabs 08/30/21 Complex-Vitamin B12 tablet) nicotine 21 mg/24 hr daily 1 patch transdermal DAILY 7 days 10/10/21 transdermal patch #7 ea clonidine HCl 0.1 mg tablet 0.1 mg PO BEDTIME #14 tabs 10/16/21 ondansetron 4 mg disintegrating 4 mg PO Q8H 3 days #9 tabs 10/16/21 tablet ascorbic acid (vitamin C) 500 mg 500 mg PO DAILY 30 days #30 tabs 11/05/21 tablet multivitamin with minerals-folic 2 tab PO DAILY #60 tabs 11/26/21 acid 200 mcg chewable tablet (Adult Multivitamin Gummies) nicotine 14 mg/24 hr daily 1 patch transdermal DAILY 7 days 11/26/21 transdermal patch #7 ea polyethylene glycol 3350 17 17 g PO DAILY #510 grams 12/31/21 gram/dose oral powder doxepin 10 mg capsule 10 mg PO BEDTIME PRN anxiety 30 01/01/22 days #30 caps lactulose 20 gram/30 mL oral 20 g (30 mL) PO BID PRN laxative 01/01/22 solution effect 15 days #1,200 mL ropinirole 0.5 mg tablet 0.5 mg PO BEDTIME 30 days #30 tabs 01/01/22 loperamide 2 mg tablet 2 mg PO .COMPLEX #14 tabs 01/15/22 gabapentin 400 mg capsule 400 mg PO TID 30 days #90 caps 01/16/22 lorazepam 2 mg tablet 2 mg PO BID PRN anxiety 30 days 02/05/22 #60 tabs Allergies Allergy/AdvReac Type Severity Reaction Status Date / Time codeine Allergy Mild ITCHING Verified 01/06/22 23:27 [From Tylenol-Codeine #2] naloxone [From NARCAN] Allergy Unknown ITCHING, Verified 01/06/22 23:27 HIVES, THROAT CLOSES clonazepam AdvReac Mild headaches,d Verified 01/06/22 23:27 izziness Codeine Sulfate Allergy Unknown pruritus Uncoded 01/06/22 23:27 TUNA FISH Allergy Unknown UNKNOWN Uncoded 01/06/22 23:27 Review of Systems Review of Systems Constitutional : No Weight loss, No Fever, No Chills ENT/Mouth :? No sore throat, No Rhinorrhea Eyes: No Swelling, No Redness Cardiovascular : No Chest Pain, No SOB, No Edema Respiratory : No Cough, No Sputum, No Wheezing Gastrointestinal : Positive Nausea, no Vomiting, no Diarrhea, positive abdominal pain, No Hematochezia, No Melena Genitourinary : No Dysuria, No Urinary Frequency, No Hematuria, No Urgency? Musculoskeletal : No joint pain, No Myalgias, No Joint Swelling Skin : No Skin Lesions, No rash Neuro : No Weakness, No Numbness, No Dizziness, No Headache Psych : No Anxiety/Panic, No Depression Heme/Lymph: No Bruising, No Lymphadenopathy Endocrine : No Polyuria, No Polydipsia Yes all other systems are reviewed and are negative [facility] Past Medical History Attestation statement: The following information was validated with the patient. Source: old records reviewed Medical History Anxiety Cellulitis of left ankle Chronic pancreatitis Constipation Depression History of seizures History of substance abuse Insomnia Obesity (BMI 30-39.9) Overweight (BMI 25.0-29.9) Smoker Surgical History No pertinent past surgical history Family History Family History Father Hypertension Mother Medical history unknown Paternal Grandmother Lung cancer Paternal Grandfather Bone cancer Maternal Uncle Mouth cancer Social History Social History Housing: House Alcohol intake: current Alcohol intake frequency: 0-2 drinks per day Alcohol type: beer and hard liquor Patient Tobacco Use Status: Former Tobacco user e-Cigarette/Vaping Use: Never Used Second Hand Smoke Exposure: Yes Use of substances other than those prescribed or required for medical reasons: No Substance Use Type: Unknown Advance Directives: Yes Advance Directives Information Provided: Yes Advance Directives on File: No service: No Current occupational status: unemployed Cognitive needs: No Hearing needs: No Vision needs: No Physical Exam ED Vital Signs: Vital Signs - 24 hr 02/22/22 10:03 02/22/22 13:54 Temperature 97.1 F 98.1 F Pulse Rate 81 88 Respiratory Rate 18 20 Blood Pressure 128/69 108/75 Pulse Oximetry 96 98 Oxygen Delivery Method Room Air BMI result Body Mass Index 26.6 Course Course Course Narrative: Patient is a 41-year-old female with a past medical history of depression, obesity, anemia, chronic pancreatitis, substance abuse, anxiety. Presenting to emergency room for evaluation of abdominal pain and personal concern for pancreatitis. Endorses alcohol consumption earlier this morning. Abdominal exam is overall benign, some mild discomfort with palpation over the epigastrium, no significant tenderness, no guarding, no rebound tenderness. Exam not consistent with appendicitis. Will obtain CBC, CMP, lipase, urinalysis, urine , ethanol level, and will trial Zofran for nausea, followed by GI cocktail with plan for p.o. trial afterwards. Reevaluation(s) Reevaluation #1: CMP is overall unremarkable, very mildly elevated AST, lipase normal. Ethyl alcohol level 209 at 1021. Patient with improvement in her symptoms. Tolerated oral fluids and solids without complication. Suspect symptoms to be due to gastritis secondary to alcohol usage. Not consistent pancreatitis, appendicitis, diverticulitis. Discussed options for detox, patient declines, recommended decreasing alcohol consumption. Advised use of omeprazole for gastritis, patient declines prescription. Discussed worrisome signs and symptoms to return back to emergency department for, outpatient follow-up with her primary care provider within 1-3 days. Patient was discharged home with her mother in stable condition. Time: 15:56 MDM - Abdominal Pain Medical Records Attestation: I reviewed the patient's medical records. Lab Data Attestation: I reviewed the patient's lab results. Result diagrams: 02/22/22 14:45 02/22/22 10:21 Labs: Lab Results 02/22/22 02/22/22 02/22/22 Range/Units 10:21 10:21 10:21 WBC (4.8-10.8) X10*3/uL RBC (4.20-5.50) X10*6/uL Hgb (12.0-16.0) g/dl Hct (37.0-47.0) % MCV (80.0-98.0) fL MCH (27.0-33.0) pg MCHC (31.0-35.0) g/dl RDW (11.0-16.0) % Plt Count (160-400) X10*3/uL MPV (9.4-12.3) fL Immature Gran % (Auto) (0.0-0.4) % Neut % (Auto) (45-73) % Lymph % (Auto) (20-40) % [place] % (Auto) (2-11) % Eos % (Auto) (0-4) % Baso % (Auto) (0-2) % Lymph # (Auto) (1.2-4.9) X10*3/uL [place] # (Auto) (0.1-1.2) X10*3/uL Eos # (Auto) (0.0-0.4) X10*3/uL Baso # (Auto) (0.0-0.2) X10*3/uL Abs Immat Gran (auto) (0.00-0.03) X10*3/uL Absolute Neuts (auto) (2.0-8.3) x10*3/uL Absolute Nucleated RBC (0.0-0.012) X10*3/uL Nucleated RBC % (auto) (0.0-0.2) /100WBC Sodium 140 (135-145) mmol/L Potassium 4.0 (3.3-5.1) mmol/L Chloride 101 (96-108) mmol/L Carbon Dioxide 27 (22-29) mmol/L Anion Gap 16 (12-20) BUN 4 L D (9-16) mg/dL Creatinine 0.82 (0.5-1.4) mg/dL Estim Creat Clear Calc 92.4 Estimated GFR > 60 Random Glucose 108 (60-115) mg/dL Calcium 9.3 (8.4-10.2) mg/dL Magnesium 1.9 (1.6-2.6) mg/dL Total Bilirubin 0.3 (0.0-1.0) mg/dL Direct Bilirubin < 0.2 (0.0-0.5) mg/dL AST 39 H D (5-31) U/L ALT 31 (0-31) U/L Alkaline Phosphatase 100 (39-117) U/L Lactate Dehydrogenase 249 H (122-220) U/L Total Protein 6.7 (6.5-8.0) g/dL Albumin 4.0 (3.5-5.0) g/dL Lipase 27 (8-78) U/L Beta HCG, Quant < 2 mIU/mL Urine Color Urine Appearance Urine pH (5.0-8.0) Ur Specific [place] (1.005-1.025) Urine Protein (NEG-TRACE) MG/DL Urine Glucose (UA) (NEG) MG/DL Urine Ketones (NEG) MG/DL Urine Blood (NEG) Urine Nitrite (NEG) Ur Leukocyte Esterase (NEG) Urine Test (NEGATIVE) Urine Opiates Screen (Not Detect) Urine Fentanyl Screen (Not Detect) Ur Barbiturates Screen (Not Detect) Ur Phencyclidine Scrn (Not Detect) Ur Amphetamines Screen (Not Detect) U Benzodiazepines Scrn (Not Detect) Urine Cocaine Screen (Not Detect) U Marijuana (THC) Screen (Not Detect) Ethyl Alcohol 209 mg/dL COVID-19 (ITZ) Negative (Negative) COVID-19 Clin Com See Note 02/22/22 02/22/22 02/22/22 Range/Units 14:45 15:14 15:14 WBC 2.8 L (4.8-10.8) X10*3/uL RBC 4.04 L (4.20-5.50) X10*6/uL Hgb 11.8 L (12.0-16.0) g/dl Hct 34.3 L (37.0-47.0) % MCV 84.9 (80.0-98.0) fL MCH 29.2 (27.0-33.0) pg MCHC 34.4 (31.0-35.0) g/dl RDW 13.8 (11.0-16.0) % Plt Count 183 D (160-400) X10*3/uL MPV 12.3 (9.4-12.3) fL Immature Gran % (Auto) 0.4 (0.0-0.4) % Neut % (Auto) 46.6 (45-73) % Lymph % (Auto) 40.9 H (20-40) % [place] % (Auto) 9.6 (2-11) % Eos % (Auto) 1.4 (0-4) % Baso % (Auto) 1.1 (0-2) % Lymph # (Auto) 1.2 (1.2-4.9) X10*3/uL [place] # (Auto) 0.3 (0.1-1.2) X10*3/uL Eos # (Auto) 0.0 (0.0-0.4) X10*3/uL Baso # (Auto) 0.0 (0.0-0.2) X10*3/uL Abs Immat Gran (auto) 0.01 (0.00-0.03) X10*3/uL Absolute Neuts (auto) 1.3 L (2.0-8.3) x10*3/uL Absolute Nucleated RBC 0.000 (0.0-0.012) X10*3/uL Nucleated RBC % (auto) 0.0 (0.0-0.2) /100WBC Sodium (135-145) mmol/L Potassium (3.3-5.1) mmol/L Chloride (96-108) mmol/L Carbon Dioxide (22-29) mmol/L Anion Gap (12-20) BUN (9-16) mg/dL Creatinine (0.5-1.4) mg/dL Estim Creat Clear Calc Estimated GFR Random Glucose (60-115) mg/dL Calcium (8.4-10.2) mg/dL Magnesium (1.6-2.6) mg/dL Total Bilirubin (0.0-1.0) mg/dL Direct Bilirubin (0.0-0.5) mg/dL AST (5-31) U/L ALT (0-31) U/L Alkaline Phosphatase (39-117) U/L Lactate Dehydrogenase (122-220) U/L Total Protein (6.5-8.0) g/dL Albumin (3.5-5.0) g/dL Lipase (8-78) U/L Beta HCG, Quant mIU/mL Urine Color STRAW Urine Appearance CLEAR Urine pH 7.0 (5.0-8.0) Ur Specific [place] <= 1.005 (1.005-1.025) Urine Protein NEG (NEG-TRACE) MG/DL Urine Glucose (UA) NEG (NEG) MG/DL Urine Ketones NEG (NEG) MG/DL Urine Blood NEG (NEG) Urine Nitrite NEG (NEG) Ur Leukocyte Esterase NEG (NEG) Urine Test NEGATIVE (NEGATIVE) Urine Opiates Screen (Not Detect) Urine Fentanyl Screen (Not Detect) Ur Barbiturates Screen (Not Detect) Ur Phencyclidine Scrn (Not Detect) Ur Amphetamines Screen (Not Detect) U Benzodiazepines Scrn (Not Detect) Urine Cocaine Screen (Not Detect) U Marijuana (THC) Screen (Not Detect) Ethyl Alcohol mg/dL COVID-19 (ITZ) (Negative) COVID-19 Clin Com 02/22/22 Range/Units 15:14 WBC (4.8-10.8) X10*3/uL RBC (4.20-5.50) X10*6/uL Hgb (12.0-16.0) g/dl Hct (37.0-47.0) % MCV (80.0-98.0) fL MCH (27.0-33.0) pg MCHC (31.0-35.0) g/dl RDW (11.0-16.0) % Plt Count (160-400) X10*3/uL MPV (9.4-12.3) fL Immature Gran % (Auto) (0.0-0.4) % Neut % (Auto) (45-73) % Lymph % (Auto) (20-40) % [place] % (Auto) (2-11) % Eos % (Auto) (0-4) % Baso % (Auto) (0-2) % Lymph # (Auto) (1.2-4.9) X10*3/uL [place] # (Auto) (0.1-1.2) X10*3/uL Eos # (Auto) (0.0-0.4) X10*3/uL Baso # (Auto) (0.0-0.2) X10*3/uL Abs Immat Gran (auto) (0.00-0.03) X10*3/uL Absolute Neuts (auto) (2.0-8.3) x10*3/uL Absolute Nucleated RBC (0.0-0.012) X10*3/uL Nucleated RBC % (auto) (0.0-0.2) /100WBC Sodium (135-145) mmol/L Potassium (3.3-5.1) mmol/L Chloride (96-108) mmol/L Carbon Dioxide (22-29) mmol/L Anion Gap (12-20) BUN (9-16) mg/dL Creatinine (0.5-1.4) mg/dL Estim Creat Clear Calc Estimated GFR Random Glucose (60-115) mg/dL Calcium (8.4-10.2) mg/dL Magnesium (1.6-2.6) mg/dL Total Bilirubin (0.0-1.0) mg/dL Direct Bilirubin (0.0-0.5) mg/dL AST (5-31) U/L ALT (0-31) U/L Alkaline Phosphatase (39-117) U/L Lactate Dehydrogenase (122-220) U/L Total Protein (6.5-8.0) g/dL Albumin (3.5-5.0) g/dL Lipase (8-78) U/L Beta HCG, Quant mIU/mL Urine Color Urine Appearance Urine pH (5.0-8.0) Ur Specific [place] (1.005-1.025) Urine Protein (NEG-TRACE) MG/DL Urine Glucose (UA) (NEG) MG/DL Urine Ketones (NEG) MG/DL Urine Blood (NEG) Urine Nitrite (NEG) Ur Leukocyte Esterase (NEG) Urine Test (NEGATIVE) Urine Opiates Screen Not Detected (Not Detect) Urine Fentanyl Screen Not Detected (Not Detect) Ur Barbiturates Screen Not Detected (Not Detect) Ur Phencyclidine Scrn Not Detected (Not Detect) Ur Amphetamines Screen Not Detected (Not Detect) U Benzodiazepines Scrn Not Detected (Not Detect) Urine Cocaine Screen Not Detected (Not Detect) U Marijuana (THC) Screen Not Detected (Not Detect) Ethyl Alcohol mg/dL COVID-19 (ITZ) (Negative) COVID-19 Clin Com Discharge Plan Discharge Clinical Impression: Gastritis Patient Disposition: Home, Self-Care Instructions: Gastritis (ED) Additional Instructions: you should consider detox from alcohol, or decreasing your alcohol consumption. The pain is most likely secondary to gastritis with your alcohol usage. Please follow-up with your primary care provider within 1-3 days. Return to the emergency department any new or worsening symptoms or concerns Prescriptions: No Action nicotine 21 mg/24 hr patch 24 hour 1 patch transdermal DAILY 7 Days Qty: 7 0RF ascorbic acid (vitamin C) 500 mg tablet 500 mg PO DAILY 30 Days Qty: 30 5RF polyethylene glycol 3350 17 gram/dose powder 17 g PO DAILY Qty: 510 3RF lactulose 20 gram/30 mL solution 20 g PO BID PRN (Reason: laxative effect) 15 Days Qty: 1200 0RF doxepin 10 mg capsule 10 mg PO BEDTIME PRN (Reason: anxiety) 30 Days Qty: 30 1RF loperamide 2 mg tablet 2 mg PO .COMPLEX Qty: 14 0RF Rx Instructions: Take 2 tabs by mouth X 1; then, 1 tab by mouth after each loose stool. Max of 16 mg/day. gabapentin 400 mg capsule 400 mg PO TID 30 Days Qty: 90 1RF lorazepam 2 mg tablet 2 mg PO BID PRN (Reason: anxiety) 30 Days Qty: 60 0RF clonidine HCl 0.1 mg tablet 0.1 mg PO BEDTIME Qty: 14 0RF ondansetron 4 mg tablet,disintegrating 4 mg PO Q8H 3 Days Qty: 9 0RF (DME) compress.stocking,knee,reg,lrg Misc See Rx Instructions .Route Qty: 2 0RF Rx Instructions: As directed furosemide [Lasix] 20 mg tablet 20 mg PO QAM 7 Days Qty: 7 0RF vitamin B complex [B Complex-Vitamin B12] Tablet 1 tab PO DAILY 30 Days Qty: 30 5RF cholecalciferol (vitamin D3) 50 mcg (2,000 unit) capsule 50 mcg PO DAILY 30 Days Qty: 30 5RF Adult Multivitamin Gummies 200 mcg tablet,chewable 2 tab PO DAILY Qty: 60 0RF nicotine 14 mg/24 hr patch 24 hour 1 patch transdermal DAILY 7 Days Qty: 7 0RF methadone 10 mg/mL concentrate 70 mg PO DAILY Rx Instructions: [facility] ropinirole 0.5 mg tablet 0.5 mg PO BEDTIME 30 Days Qty: 30 3RF Rx Instructions: administer 1-3 hours before bedtime Stand Alone Forms: Work/School Release Interventions: ED Discharge Assessment Last Done: 02/22/22 16:03 Discharge Date/Time: 02/22/22 16:04
[2022-02-22] MEDS: Ondansetron ODT 4 MG TAB.RAPDIS TRANSLINGU (14:25)
[2022-02-22 14:50] LABS: HCG Quantitative < 2 mIU/mL
[2022-02-22 15:04] LABS: Basophils Percent Auto 1.1 % (0-2); Eosinophils Percent Auto 1.4 % (0-4); Hematocrit 34.3 % (37.0-47.0); Hemoglobin 11.8 g/dl (12.0-16.0); Imm Gran Abs Auto 0.01 X10*3/uL (0.00-0.03); Imm Gran Pct Auto 0.4 % (0.0-0.4); Lymphocytes Absolute Auto 1.2 X10*3/uL (1.2-4.9); Lymphocytes Percent Auto 40.9 % (20-40); Mean Corpuscular HGB Conc 34.4 g/dl (31.0-35.0); Mean Corpuscular Hemoglobin 29.2 pg (27.0-33.0); Mean Corpuscular Volume 84.9 fL (80.0-98.0); Mean Platelet Volume 12.3 fL (9.4-12.3); Monocytes Absolute Auto 0.3 X10*3/uL (0.1-1.2); Monocytes Percent Auto 9.6 % (2-11); Neutrophils Absolute Auto 1.3 x10*3/uL (2.0-8.3); Neutrophils Percent Auto 46.6 % (45-73); Platelet Count 183 X10*3/uL (160-400); Red Blood Count 4.04 X10*6/uL (4.20-5.50); Red Cell Distribution Width 13.8 % (11.0-16.0); White Blood Count 2.8 X10*3/uL (4.8-10.8)
[2022-02-22] MEDS: Lidocaine HCl Viscous 2 % 15 ML SOLUTION MUCOUS MEM (15:09)
[2022-02-22] MEDS: Magnesium Hydrox/Alum Hydrox 30 ML ORAL.SUSP PO (15:09)
[2022-02-22] MEDS: Famotidine 20 MG TABLET PO (15:09)
[2022-02-22 15:32] LABS: Appearance Urine CLEAR; Color Urine STRAW; Glucose Urine UA NEG (NEG); Leukocyte Esterase Urine NEG (NEG); Nitrite Urine NEG (NEG); Specific Gravity - Urine <= 1.005 (1.005-1.025); Urine Blood NEG (NEG); Urine Ketones NEG (NEG); Urine Protein NEG (NEG-TRACE)
[2022-02-22 15:36] LABS: Amphetamine Screen Urine Not Detected (Not Detect); Barbiturates, Urine Not Detected (Not Detect); Benzodiazepines Screen Urine Not Detected (Not Detect); Cannabinoid Screen Urine Not Detected (Not Detect); Cocaine Screen Urine Not Detected (Not Detect); Fentanyl, urine Not Detected (Not Detect); Opiate Screen Urine Not Detected (Not Detect); Phencyclidine Screen Urine Not Detected (Not Detect)
[2022-02-22 15:37] LABS: Urine Pregnancy NEGATIVE (NEGATIVE)
[2022-02-22 15:38] LABS: UPreg QC Valid YES
== END 2022-02-22 16:04 | disposition home or self-care (01) ==
PROVIDERS: Nurse Practitioner Family; Emergency Provider Emergency Medicine; PCP Internal Medicine
DX: K85.90 Acute pancreatitis without necrosis or infection, unspecified (principal); R10.9 Unspecified abdominal pain; K29.70 Gastritis, unspecified, without bleeding; Z20.822 Contact with and (suspected) exposure to COVID-19; Z79.899 Other long term (current) drug therapy
CPT/HCPCS: 36415; 80048; 80076; 80307; 81003; 81025; 82077; 83615; 83690; 83735; 84702; 85025; 87635; 99283; 99284

== ENCOUNTER 2022-02-26 05:48 | Emergency (ER) | payer OTHER, SELFPAY ==
--- NOTE | ~2022-02-26 | CT_ITS ---
EXAMINATION: CT ABDOMEN AND PELVIS WITH CONTRAST CLINICAL INFORMATION: Diffuse abdominal pain. Suspected pancreatitis. COMPARISON: CT of the abdomen and pelvis done on 04/01/2016. TECHNIQUE: Multidetector volumetric images were obtained from the superior aspect of the liver through the pubic symphysis following administration 85 mL of Omnipaque 350 intravenous contrast. Sagittal and coronal reformatted images were obtained on the technologist's workstation. Oral contrast: No This CT examination was performed using dose optimization techniques as appropriate, variously including the following: *Automated exposure control *Adjustment of mA and/or kV according to patient size (this includes techniques or standardized protocols for targeted exams where dose is matched to indication/reason for exam; i.e. extremities or head) *Use of iterative reconstruction technique DLP: 518.63 mGy-cm FINDINGS: LUNG BASES: The visualized lung bases are unremarkable. LIVER, GALLBLADDER, AND BILIARY TREE: The liver is normal in size, shape, and attenuation. No focal hepatic lesion is present. Persistent stable mild intrahepatic biliary ductal dilatation is present, unchanged since 04/01/2016. The gallbladder is unremarkable with no evidence of radiopaque gallstones, gallbladder wall thickening, or obvious pericholecystic inflammatory changes. PANCREAS: No evidence of any parenchymal or peripancreatic inflammatory changes present. Subtle prominent pancreatic duct is present in the region of the proximal part of the body and head, appears similar to prior study. No evidence of any discrete pancreatic mass or peripancreatic lymphadenopathy. Overall no significant change since prior study. SPLEEN: Unremarkable. ADRENAL GLANDS: Unremarkable. KIDNEYS AND URETERS: The kidneys are normal in size, shape, and attenuation. No hydronephrosis, hydroureter, or calculi seen. No perinephric stranding. BLADDER: Unremarkable. GASTROINTESTINAL TRACT: The small and large bowel are unremarkable. The appendix is nonvisualized. No pericecal inflammatory changes. ABDOMINAL WALL: No significant hernia is appreciated. LYMPH NODES: Normal. VASCULAR: Unremarkable. PELVIC VISCERA: Remarkable for unilocular circumscribed hypodense approximately 4.0 x 2.3 x 3.4 cm left adnexal hypodense mass in the left adnexal region, most consistent with enlarged follicle-containing left ovary. No evidence of any free fluid. OSSEOUS STRUCTURES: Remarkable for endplate sclerosis, focal contour defect and soft tissue gas at L5-S1 however it is unchanged since 04/01/2016, most consistent with degenerative disc disease. Moderate-severe diffuse osteopenia is noted, somewhat unusual for the patient's stated age. CT/CT abdomen pelvis w con IMPRESSION: 1. No CT evidence of any acute intra-abdominal and/or intrapelvic pathology is present. Specifically, no CT evidence of any pancreatitis is present. 2. Persistent stable mild intrahepatic biliary ductal dilatation, unchanged since 04/01/2016. 3. Stable presumed degenerative disc disease at L5-S1. 4. Nonvisualized appendix without any inflammatory changes around the cecum. 5. Interval development of a 4 cm maximum dimension left adnexal hypodense mass in the pelvis, most consistent with enlarged follicle-containing left ovary. 6. Moderate to severe diffuse osteopenia, somewhat unusual for the patient's stated age.
[2022-02-26 06:01] VITALS: BP 142/88; PULSE 84; RESP 16; TEMP 36.8; O2SAT 98; BMI 26.6
--- NOTE | 2022-02-26 07:02 | ED.ABDPAIN ---
HPI - Abdominal Pain General Chief Complaint: Abdominal Pain Stated Complaint: vomit, pancreas pain Time Seen by Provider: 02/26/22 06:26 Source: patient Mode of arrival: ambulatory History of Present Illness HPI narrative: 41-year-old female who has known alcohol dependency and reports chronic pancreatitis states that she has been having this epigastric pain for 2 weeks, and then due to the pain she states that she drank yesterday and then developed nausea and vomiting at approximately 0200. She otherwise denies fever, chills, diarrhea, urinary symptoms but states that after the vomiting her breathing feels difficulty. She is also concerned because she has missed her methadone appointment. Related Data Home Medications Medication Instructions Recorded Confirmed methadone 10 mg/mL oral concentrate 70 mg PO DAILY 01/01/22 01/01/22 Previous Rx's Medication Instructions Recorded compress.stocking,knee,reg,lrg #2 ea 04/23/21 furosemide 20 mg tablet (Lasix) 20 mg PO QAM 7 days #7 tabs 04/23/21 cholecalciferol (vitamin D3) 50 50 mcg PO DAILY 30 days #30 caps 08/30/21 mcg (2,000 unit) capsule vitamin B complex (B 1 tab PO DAILY 30 days #30 tabs 08/30/21 Complex-Vitamin B12 tablet) nicotine 21 mg/24 hr daily 1 patch transdermal DAILY 7 days 10/10/21 transdermal patch #7 ea clonidine HCl 0.1 mg tablet 0.1 mg PO BEDTIME #14 tabs 10/16/21 ondansetron 4 mg disintegrating 4 mg PO Q8H 3 days #9 tabs 10/16/21 tablet ascorbic acid (vitamin C) 500 mg 500 mg PO DAILY 30 days #30 tabs 11/05/21 tablet multivitamin with minerals-folic 2 tab PO DAILY #60 tabs 11/26/21 acid 200 mcg chewable tablet (Adult Multivitamin Gummies) nicotine 14 mg/24 hr daily 1 patch transdermal DAILY 7 days 11/26/21 transdermal patch #7 ea polyethylene glycol 3350 17 17 g PO DAILY #510 grams 12/31/21 gram/dose oral powder doxepin 10 mg capsule 10 mg PO BEDTIME PRN anxiety 30 01/01/22 days #30 caps lactulose 20 gram/30 mL oral 20 g (30 mL) PO BID PRN laxative 01/01/22 solution effect 15 days #1,200 mL ropinirole 0.5 mg tablet 0.5 mg PO BEDTIME 30 days #30 tabs 01/01/22 loperamide 2 mg tablet 2 mg PO .COMPLEX #14 tabs 01/15/22 gabapentin 400 mg capsule 400 mg PO TID 30 days #90 caps 01/16/22 lorazepam 2 mg tablet 2 mg PO BID PRN anxiety 30 days 02/05/22 #60 tabs Allergies Allergy/AdvReac Type Severity Reaction Status Date / Time codeine Allergy Mild ITCHING Verified 02/26/22 06:05 [From Tylenol-Codeine #2] naloxone [From NARCAN] Allergy Unknown ITCHING, Verified 02/26/22 06:05 HIVES, THROAT CLOSES clonazepam AdvReac Mild headaches,d Verified 02/26/22 06:05 izziness Codeine Sulfate Allergy Unknown pruritus Uncoded 02/26/22 06:05 TUNA FISH Allergy Unknown UNKNOWN Uncoded 02/26/22 06:05 Review of Systems Review of Systems Pertinent positives and negatives as stated in HPI 10 point review of systems is otherwise negative. [facility] Past Medical History Source: nursing notes reviewed Medical History Anxiety Cellulitis of left ankle Chronic pancreatitis Constipation Depression History of seizures History of substance abuse Insomnia Obesity (BMI 30-39.9) Overweight (BMI 25.0-29.9) Smoker Surgical History No pertinent past surgical history Family History Family History Father Hypertension Mother Medical history unknown Paternal Grandmother Lung cancer Paternal Grandfather Bone cancer Maternal Uncle Mouth cancer Social History Social History Housing: House Alcohol intake: current Alcohol intake frequency: 0-2 drinks per day Alcohol type: beer and hard liquor Patient Tobacco Use Status: Former Tobacco user e-Cigarette/Vaping Use: Never Used Second Hand Smoke Exposure: Yes Use of substances other than those prescribed or required for medical reasons: No Substance Use Type: Unknown Advance Directives: No Advance Directives Information Provided: Yes service: No Current occupational status: unemployed Cognitive needs: No Hearing needs: No Vision needs: No Physical Exam ED Vital Signs: Vital Signs - 24 hr 02/26/22 06:01 Temperature 98.2 F Pulse Rate 84 Respiratory Rate 16 Blood Pressure 142/88 H Pulse Oximetry 98 Oxygen Delivery Method Room Air BMI result Body Mass Index 26.6 VITAL SIGNS: Reviewed. GENERAL: Well developed, well nourished, in no acute distress. HEAD: Normocephalic/atraumatic EYES: PERRLA, EOMI EARS: Ext canals without abnormality OROPHARYNX: no oral lesions noted, posterior pharynx clear LUNGS: Normal breath sounds. No adventitious sounds or accessory muscle use. SpO2<98> CARDIOVASCULAR: Regular rate and rhythm without noted murmurs ABDOMEN: Soft, non-tender, non-distended with bowel sounds. MUSCULOSKELETAL: No tenderness, deformities, or effusions noted on gross inspection. EXTREMITIES: No cyanosis, clubbing or edema. SKIN: Inspection of the skin reveals no rashes NEUROLOGIC: Alert and oriented x 4. Strength and sensation to light touch were grossly intact x 4. Course Course Course Narrative: 41-year-old female with history and clinical presentation suggestive of alcoholic gastritis, pancreatitis. Review of all investigations consistent with alcoholic gastritis, no evidence of pancreatic pseudocyst or acute pancreatitis. Patient received all results and was provided with a GI cocktail and instructions regarding alcohol use and her parent gastritis. MDM - Abdominal Pain Lab Data Result diagrams: 02/26/22 08:13 02/26/22 08:13 Labs: Lab Results 02/26/22 02/26/22 02/26/22 Range/Units 08:13 08:13 08:16 WBC 4.8 (4.8-10.8) X10*3/uL RBC 4.95 D (4.20-5.50) X10*6/uL Hgb 14.3 D (12.0-16.0) g/dl Hct 42.0 D (37.0-47.0) % MCV 84.8 (80.0-98.0) fL MCH 28.9 (27.0-33.0) pg MCHC 34.0 (31.0-35.0) g/dl RDW 13.9 (11.0-16.0) % Plt Count 252 D (160-400) X10*3/uL MPV 11.7 (9.4-12.3) fL Immature Gran % (Auto) 0.2 (0.0-0.4) % Neut % (Auto) 71.7 (45-73) % Lymph % (Auto) 22.3 (20-40) % [place] % (Auto) 5.2 (2-11) % Eos % (Auto) 0.0 (0-4) % Baso % (Auto) 0.6 (0-2) % Lymph # (Auto) 1.1 L (1.2-4.9) X10*3/uL [place] # (Auto) 0.3 (0.1-1.2) X10*3/uL Eos # (Auto) 0.0 (0.0-0.4) X10*3/uL Baso # (Auto) 0.0 (0.0-0.2) X10*3/uL Abs Immat Gran (auto) 0.01 (0.00-0.03) X10*3/uL Absolute Neuts (auto) 3.5 (2.0-8.3) x10*3/uL Absolute Nucleated RBC 0.000 (0.0-0.012) X10*3/uL Nucleated RBC % (auto) 0.0 (0.0-0.2) /100WBC Sodium 139 (135-145) mmol/L Potassium 3.9 (3.3-5.1) mmol/L Chloride 104 (96-108) mmol/L Carbon Dioxide 22 (22-29) mmol/L Anion Gap 17 (12-20) BUN 7 L D (9-16) mg/dL Creatinine 0.76 (0.5-1.4) mg/dL Estim Creat Clear Calc 99.7 Estimated GFR > 60 Random Glucose 105 (60-115) mg/dL Calcium 8.3 L D (8.4-10.2) mg/dL Total Bilirubin 0.2 (0.0-1.0) mg/dL AST 40 H (5-31) U/L ALT 38 H (0-31) U/L Alkaline Phosphatase 118 H (39-117) U/L Total Protein 7.3 (6.5-8.0) g/dL Albumin 4.2 (3.5-5.0) g/dL Lipase 7 L (8-78) U/L Urine Color YELLOW Urine Appearance HAZY Urine pH 7.5 (5.0-8.0) Ur Specific [place] 1.010 (1.005-1.025) Urine Protein NEG (NEG-TRACE) MG/DL Urine Glucose (UA) NEG (NEG) MG/DL Urine Ketones NEG (NEG) MG/DL Urine Blood NEG (NEG) Urine Nitrite NEG (NEG) Ur Leukocyte Esterase NEG (NEG) Urine Test (NEGATIVE) Ethyl Alcohol 78 mg/dL 02/26/22 Range/Units 08:16 WBC (4.8-10.8) X10*3/uL RBC (4.20-5.50) X10*6/uL Hgb (12.0-16.0) g/dl Hct (37.0-47.0) % MCV (80.0-98.0) fL MCH (27.0-33.0) pg MCHC (31.0-35.0) g/dl RDW (11.0-16.0) % Plt Count (160-400) X10*3/uL MPV (9.4-12.3) fL Immature Gran % (Auto) (0.0-0.4) % Neut % (Auto) (45-73) % Lymph % (Auto) (20-40) % [place] % (Auto) (2-11) % Eos % (Auto) (0-4) % Baso % (Auto) (0-2) % Lymph # (Auto) (1.2-4.9) X10*3/uL [place] # (Auto) (0.1-1.2) X10*3/uL Eos # (Auto) (0.0-0.4) X10*3/uL Baso # (Auto) (0.0-0.2) X10*3/uL Abs Immat Gran (auto) (0.00-0.03) X10*3/uL Absolute Neuts (auto) (2.0-8.3) x10*3/uL Absolute Nucleated RBC (0.0-0.012) X10*3/uL Nucleated RBC % (auto) (0.0-0.2) /100WBC Sodium (135-145) mmol/L Potassium (3.3-5.1) mmol/L Chloride (96-108) mmol/L Carbon Dioxide (22-29) mmol/L Anion Gap (12-20) BUN (9-16) mg/dL Creatinine (0.5-1.4) mg/dL Estim Creat Clear Calc Estimated GFR Random Glucose (60-115) mg/dL Calcium (8.4-10.2) mg/dL Total Bilirubin (0.0-1.0) mg/dL AST (5-31) U/L ALT (0-31) U/L Alkaline Phosphatase (39-117) U/L Total Protein (6.5-8.0) g/dL Albumin (3.5-5.0) g/dL Lipase (8-78) U/L Urine Color Urine Appearance Urine pH (5.0-8.0) Ur Specific [place] (1.005-1.025) Urine Protein (NEG-TRACE) MG/DL Urine Glucose (UA) (NEG) MG/DL Urine Ketones (NEG) MG/DL Urine Blood (NEG) Urine Nitrite (NEG) Ur Leukocyte Esterase (NEG) Urine Test NEGATIVE (NEGATIVE) Ethyl Alcohol mg/dL Discharge Plan Discharge Clinical Impression: Alcoholic gastritis Patient Disposition: Home, Self-Care Instructions: Gastritis (ED), Diet for Stomach Ulcers and Gastritis (ED), Alcohol Use Disorder (ED) Additional Instructions: 1. Resume all home medications as prescribed. 2. Recommend starting [id number] omeprazole and use as directed on the outside packaging. 3. Please follow-up with primary care provider for re-evaluation in the next 1-2 days. Return to the ER for worsening symptoms. Prescriptions: No Action nicotine 21 mg/24 hr patch 24 hour 1 patch transdermal DAILY 7 Days Qty: 7 0RF ascorbic acid (vitamin C) 500 mg tablet 500 mg PO DAILY 30 Days Qty: 30 5RF polyethylene glycol 3350 17 gram/dose powder 17 g PO DAILY Qty: 510 3RF lactulose 20 gram/30 mL solution 20 g PO BID PRN (Reason: laxative effect) 15 Days Qty: 1200 0RF doxepin 10 mg capsule 10 mg PO BEDTIME PRN (Reason: anxiety) 30 Days Qty: 30 1RF loperamide 2 mg tablet 2 mg PO .COMPLEX Qty: 14 0RF Rx Instructions: Take 2 tabs by mouth X 1; then, 1 tab by mouth after each loose stool. Max of 16 mg/day. gabapentin 400 mg capsule 400 mg PO TID 30 Days Qty: 90 1RF lorazepam 2 mg tablet 2 mg PO BID PRN (Reason: anxiety) 30 Days Qty: 60 0RF clonidine HCl 0.1 mg tablet 0.1 mg PO BEDTIME Qty: 14 0RF ondansetron 4 mg tablet,disintegrating 4 mg PO Q8H 3 Days Qty: 9 0RF (DME) compress.stocking,knee,reg,lrg Misc See Rx Instructions .Route Qty: 2 0RF Rx Instructions: As directed furosemide [Lasix] 20 mg tablet 20 mg PO QAM 7 Days Qty: 7 0RF vitamin B complex [B Complex-Vitamin B12] Tablet 1 tab PO DAILY 30 Days Qty: 30 5RF cholecalciferol (vitamin D3) 50 mcg (2,000 unit) capsule 50 mcg PO DAILY 30 Days Qty: 30 5RF Adult Multivitamin Gummies 200 mcg tablet,chewable 2 tab PO DAILY Qty: 60 0RF nicotine 14 mg/24 hr patch 24 hour 1 patch transdermal DAILY 7 Days Qty: 7 0RF methadone 10 mg/mL concentrate 70 mg PO DAILY Rx Instructions: [facility] ropinirole 0.5 mg tablet 0.5 mg PO BEDTIME 30 Days Qty: 30 3RF Rx Instructions: administer 1-3 hours before bedtime Referrals: Hadley Jc MD [Primary Care Provider] -
[2022-02-26] MEDS: 0.9 % Sodium Chloride 1,000 ML 999 ML IV (07:19)
[2022-02-26] MEDS: ondansetron HCL 4 MG/2 ML VIAL IVPUSH (07:19)
[2022-02-26 08:16] LABS: MANUAL DIFF FLAG NO
[2022-02-26 08:17] LABS: Basophils Percent Auto 0.6 % (0-2); Hemoglobin 14.3 g/dl (12.0-16.0); Imm Gran Abs Auto 0.01 X10*3/uL (0.00-0.03); Imm Gran Pct Auto 0.2 % (0.0-0.4); Lymphocytes Absolute Auto 1.1 X10*3/uL (1.2-4.9); Lymphocytes Percent Auto 22.3 % (20-40); Mean Corpuscular Hemoglobin 28.9 pg (27.0-33.0); Mean Corpuscular Volume 84.8 fL (80.0-98.0); Mean Platelet Volume 11.7 fL (9.4-12.3); Monocytes Absolute Auto 0.3 X10*3/uL (0.1-1.2); Monocytes Percent Auto 5.2 % (2-11); Neutrophils Absolute Auto 3.5 x10*3/uL (2.0-8.3); Neutrophils Percent Auto 71.7 % (45-73); Platelet Count 252 X10*3/uL (160-400); Red Blood Count 4.95 X10*6/uL (4.20-5.50); Red Cell Distribution Width 13.9 % (11.0-16.0); White Blood Count 4.8 X10*3/uL (4.8-10.8)
[2022-02-26 08:24] LABS: Appearance Urine HAZY; Color Urine YELLOW; Glucose Urine UA NEG (NEG); Leukocyte Esterase Urine NEG (NEG); Nitrite Urine NEG (NEG); PH 7.5 (5.0-8.0); Urine Blood NEG (NEG); Urine Ketones NEG (NEG); Urine Protein NEG (NEG-TRACE)
[2022-02-26 08:26] LABS: UPreg QC Valid YES; Urine Pregnancy NEGATIVE (NEGATIVE)
[2022-02-26 08:40] LABS: Alanine Aminotransferase 38 U/L (0-31); Albumin Level 4.2 g/dL (3.5-5.0); Alkaline Phosphatase 118 U/L (39-117); Anion Gap 17 (12-20); Aspartate Amino Transferase 40 U/L (5-31); Bilirubin Total 0.2 mg/dL (0.0-1.0); Blood Urea Nitrogen 7 mg/dL (9-16); Calcium 8.3 mg/dL (8.4-10.2); Carbon Dioxide 22 mmol/L (22-29); Chloride 104 mmol/L (96-108); Creatinine Clr Calc Pharmacy 99.7; Estimated Glomerular Filt Rate > 60; Ethanol 78 mg/dL; Glucose Random 105 mg/dL (60-115); Lipase 7 U/L (8-78); Potassium 3.9 mmol/L (3.3-5.1); Sodium 139 mmol/L (135-145); Total Protein 7.3 g/dL (6.5-8.0)
[2022-02-26] MEDS: iohexoL 350 MG/ML 100 ML INFUS..BTL IV (09:15)
[2022-02-26 11:14] VITALS: BP 133/79; PULSE 88; RESP 20; O2SAT 98
[2022-02-26] MEDS: Magnesium Hydrox/Alum Hydrox 30 ML ORAL.SUSP PO (11:15)
[2022-02-26] MEDS: Lidocaine HCl Viscous 2 % 15 ML SOLUTION 10 ML MUCOUS MEM (11:15)
== END 2022-02-26 11:20 | disposition home or self-care (01) ==
PROVIDERS: Emergency Provider Student in an Organized Health Care Education/Training Program; PCP Internal Medicine
DX: K29.20 Alcoholic gastritis without bleeding (principal); F10.20 Alcohol dependence, uncomplicated; Y90.3 Blood alcohol level of 60-79 mg/100 ml; F11.20 Opioid dependence, uncomplicated; F17.200 Nicotine dependence, unspecified, uncomplicated
CPT/HCPCS: 36415; 74177; 80053; 81003; 81025; 82077; 83690; 85025; 96361; 96374; 99284; 99285; J2405; Q9967

== ENCOUNTER 2022-05-16 21:50 | Emergency (ER) | payer OTHER, SELFPAY ==
[2022-05-16 21:54] VITALS: BP 128/71; PULSE 79; RESP 18; TEMP 37.2; O2SAT 96; BMI 24.2
--- NOTE | 2022-05-16 21:56 | ECG_ITS ---
Test Reason : abdominal pain Blood Pressure : / mmHG Vent. Rate : 076 BPM Atrial Rate : 076 BPM P-R Int : 160 ms QRS Dur : 082 ms QT Int : 436 ms P-R-T Axes : 069 045 065 degrees QTc Int : 490 ms Normal sinus rhythm RSR' or QR pattern in V1 suggests right ventricular conduction delay Nonspecific ST and T wave abnormality Abnormal ECG When compared with ECG of 31-MAY-2019 09:05, Nonspecific T wave abnormality now evident in Lateral leads Inferior leads Referred By: Generic ED Physician Electronically Signed By:MOLLY BARR MD
[2022-05-16 22:17] LABS: MANUAL DIFF FLAG NO
[2022-05-16 22:21] LABS: Basophils Percent Auto 0.4 % (0-2); Eosinophils Percent Auto 0.2 % (0-4); Hemoglobin 12.6 g/dl (12.0-16.0); Imm Gran Abs Auto 0.01 X10*3/uL (0.00-0.03); Imm Gran Pct Auto 0.2 % (0.0-0.4); Lymphocytes Absolute Auto 1.3 X10*3/uL (1.2-4.9); Lymphocytes Percent Auto 24.5 % (20-40); Mean Corpuscular HGB Conc 34.1 g/dl (31.0-35.0); Mean Corpuscular Hemoglobin 29.5 pg (27.0-33.0); Mean Corpuscular Volume 86.7 fL (80.0-98.0); Mean Platelet Volume 12.7 fL (9.4-12.3); Monocytes Absolute Auto 0.3 X10*3/uL (0.1-1.2); Monocytes Percent Auto 4.9 % (2-11); Neutrophils Absolute Auto 3.6 x10*3/uL (2.0-8.3); Neutrophils Percent Auto 69.8 % (45-73); Platelet Count 168 X10*3/uL (160-400); Red Blood Count 4.27 X10*6/uL (4.20-5.50); Red Cell Distribution Width 11.9 % (11.0-16.0); White Blood Count 5.1 X10*3/uL (4.8-10.8)
[2022-05-16 22:39] LABS: Alanine Aminotransferase 18 U/L (0-31); Albumin Level 4.6 g/dL (3.5-5.0); Alkaline Phosphatase 89 U/L (39-117); Anion Gap 18 (12-20); Aspartate Amino Transferase 30 U/L (5-31); Bilirubin Direct < 0.2 mg/dL (0.0-0.5); Bilirubin Total 0.3 mg/dL (0.0-1.0); Blood Urea Nitrogen 8 mg/dL (9-16); Calcium 9.3 mg/dL (8.4-10.2); Carbon Dioxide 23 mmol/L (22-29); Chloride 99 mmol/L (96-108); Creatinine Clr Calc Pharmacy 65.3; Estimated Glomerular Filt Rate 57; Ethanol < 10 mg/dL; Glucose Random 103 mg/dL (60-115); Lipase 9 U/L (8-78); Potassium 4.2 mmol/L (3.3-5.1); Sodium 136 mmol/L (135-145); Total Protein 7.7 g/dL (6.5-8.0)
[2022-05-17] MEDS: Ketorolac Tromethamine 60 MG/2 ML VIAL IM (02:29)
[2022-05-17] MEDS: Ondansetron ODT 4 MG TAB.RAPDIS TRANSLINGU (02:29)
[2022-05-17 02:55] VITALS: BP 122/68; PULSE 100; RESP 20; TEMP 36.9; O2SAT 100
--- NOTE | 2022-05-17 03:04 | PC.NURSE ---
Addendum entered by Judy Higgins RN 05/17/22 04:20: aware of note below and reevaluated patient. Original Note: Patient states she took over 100 tablets of neurontin to get high. NOT to kill herself. She says the pain started after she took all the pills. She normally goes to the suboxone clinic and had a relapse yesterday. She denies SI/HI. Patient is very anxious, crying and rocking back and forth. Patient states her last BM was a few days ago. Mother is at bedside and appears very anxious also continuously approaching staff crying.
--- NOTE | 2022-05-17 03:18 | ED_ITS ---
HPI - Abdominal Pain General Chief Complaint: Abdominal Pain Stated Complaint: Stomach pain Time Seen by Provider: 05/17/22 01:43 Source: patient Mode of arrival: ambulatory Limitations: no limitations History of Present Illness HPI narrative: Patient history of alcohol abuse and pancreatitis about 3 years ago not taking alcohol anymore lasted patient took 150 tablets of 400 mg gabapentin to get high now complaining of mid abdominal discomfort with nausea. Patient has not moved her bowels for last 2 days with history of constipation patient denies any intentional overdose no suicidal ideation or feelings Related Data Home Medications Medication Instructions Recorded Confirmed methadone 10 mg/mL oral concentrate 70 mg PO DAILY 01/01/22 03/18/22 Previous Rx's Medication Instructions Recorded compress.stocking,knee,reg,lrg #2 ea 04/23/21 furosemide 20 mg tablet (Lasix) 20 mg PO QAM 7 days #7 tabs 04/23/21 nicotine 21 mg/24 hr daily 1 patch transdermal DAILY 7 days 10/10/21 transdermal patch #7 ea clonidine HCl 0.1 mg tablet 0.1 mg PO BEDTIME #14 tabs 10/16/21 ondansetron 4 mg disintegrating 4 mg PO Q8H 3 days #9 tabs 10/16/21 tablet ascorbic acid (vitamin C) 500 mg 500 mg PO DAILY 30 days #30 tabs 11/05/21 tablet multivitamin with minerals-folic 2 tab PO DAILY #60 tabs 11/26/21 acid 200 mcg chewable tablet (Adult Multivitamin Gummies) nicotine 14 mg/24 hr daily 1 patch transdermal DAILY 7 days 11/26/21 transdermal patch #7 ea polyethylene glycol 3350 17 17 g PO DAILY #510 grams 12/31/21 gram/dose oral powder lactulose 20 gram/30 mL oral 20 g (30 mL) PO BID PRN laxative 01/01/22 solution effect 15 days #1,200 mL cholecalciferol (vitamin D3) 50 50 mcg PO DAILY 30 days #30 caps 03/01/22 mcg (2,000 unit) capsule vitamin B complex (B 1 tab PO DAILY 30 days #30 tabs 03/27/22 Complex-Vitamin B12 tablet) nicotine 7 mg/24 hr daily 1 patch transdermal Q24H 28 days 03/28/22 transdermal patch #28 ea vortioxetine 10 mg tablet 10 mg PO DAILY 30 days #30 tabs 09/21/22 ropinirole 0.5 mg tablet 0.5 mg PO BEDTIME 30 days #30 tabs 04/27/22 lorazepam 2 mg tablet 2 mg PO BID PRN anxiety 30 days 05/01/22 #60 tabs gabapentin 400 mg capsule 400 mg PO TID 30 days #90 caps 05/07/22 doxepin 10 mg capsule 10 mg PO BEDTIME PRN anxiety 30 05/13/22 days #30 caps tizanidine 4 mg tablet 4 mg PO TID PRN muscle spasms 30 05/13/22 days #90 tabs loperamide 2 mg tablet 2 mg PO .COMPLEX #60 tabs 05/14/22 ondansetron 4 mg disintegrating 4 mg PO Q6-8H PRN nausea and 05/17/22 tablet vomiting #7 tabs Allergies Allergy/AdvReac Type Severity Reaction Status Date / Time codeine Allergy Mild ITCHING Verified 03/18/22 16:43 [From Tylenol-Codeine #2] naloxone [From NARCAN] Allergy Unknown ITCHING, Verified 03/18/22 16:43 HIVES, THROAT CLOSES clonazepam AdvReac Mild headaches,d Verified 03/18/22 16:43 izziness Codeine Sulfate Allergy Unknown pruritus Uncoded 03/18/22 16:43 TUNA FISH Allergy Unknown UNKNOWN Uncoded 03/18/22 16:43 Review of Systems Review of Systems Yes all other systems are reviewed and are negative [facility] Past Medical History Medical History Anxiety Cellulitis of left ankle Chronic pancreatitis Constipation Depression History of seizures History of substance abuse Insomnia Obesity (BMI 30-39.9) Overweight (BMI 25.0-29.9) Smoker Surgical History No pertinent past surgical history Family History Family History Father Hypertension Mother Medical history unknown Paternal Grandmother Lung cancer Paternal Grandfather Bone cancer Maternal Uncle Mouth cancer Social History Social History Housing: House Alcohol intake: current Alcohol intake frequency: does not drink Alcohol type: beer and hard liquor Patient Tobacco Use Status: Former Tobacco user e-Cigarette/Vaping Use: Never Used Second Hand Smoke Exposure: Yes Substance Use Type: Unknown Advance Directives: No Advance Directives Information Provided: No service: No Current occupational status: unemployed Cognitive needs: No Hearing needs: No Vision needs: No Physical Exam ED Vital Signs: Vital Signs - 24 hr 05/16/22 21:54 05/17/22 02:55 Temperature 98.9 F 98.5 F Pulse Rate 79 100 Respiratory Rate 18 20 Blood Pressure 128/71 122/68 Pulse Oximetry 96 100 Oxygen Delivery Method Room Air Room Air BMI result Body Mass Index 24.2 Appearance: Alert. Oriented X3. Anxious complaining of mid abdominal pain Eyes: PERRLA, No Nystagmus ENT: Pharynx normal. Oral Mucosa moist Neck: Normal inspection. Neck supple. CVS: Normal heart rate and rhythm. Pulses normal. Respiratory: No respiratory distress. Equal air entry bilateral, no wheezing/rales/rhonchi Abdomen: Soft , mid abdomen tenderness+ no rebound tenderness or guarding. Bowel sounds are present, no mass palpable, no CVA tenderness Skin: Skin warm and dry. Normal skin color. Normal skin turgor. Extremities: No lower extremity edema. No calf tenderness Neuro: Oriented X 3. No motor deficit. No sensory deficit.No cerebellar signs , cranial nerves II-XII intact MDM - Abdominal Pain MDM Narrative Medical decision making narrative: History of constipation anxiety claimed that she took 150 tablets of gabapentin 400 mg yesterday which is not very clear as patient gets only 90 tablets in a month's supply which she got in 04/19 patient denies any intentional overdose no SI will give patient will commit greasy a Maalox and Toradol IM Lab Data Attestation: I reviewed the patient's lab results. Result diagrams: 05/16/22 22:12 05/16/22 22:12 Labs: Lab Results 05/16/22 05/16/22 Range/Units 22:12 22:12 WBC 5.1 (4.8-10.8) X10*3/uL RBC 4.27 (4.20-5.50) X10*6/uL Hgb 12.6 (12.0-16.0) g/dl Hct 37.0 (37.0-47.0) % MCV 86.7 (80.0-98.0) fL MCH 29.5 (27.0-33.0) pg MCHC 34.1 (31.0-35.0) g/dl RDW 11.9 (11.0-16.0) % Plt Count 168 D (160-400) X10*3/uL MPV 12.7 H (9.4-12.3) fL Immature Gran % (Auto) 0.2 (0.0-0.4) % Neut % (Auto) 69.8 (45-73) % Lymph % (Auto) 24.5 (20-40) % [place] % (Auto) 4.9 (2-11) % Eos % (Auto) 0.2 (0-4) % Baso % (Auto) 0.4 (0-2) % Lymph # (Auto) 1.3 (1.2-4.9) X10*3/uL [place] # (Auto) 0.3 (0.1-1.2) X10*3/uL Eos # (Auto) 0.0 (0.0-0.4) X10*3/uL Baso # (Auto) 0.0 (0.0-0.2) X10*3/uL Abs Immat Gran (auto) 0.01 (0.00-0.03) X10*3/uL Absolute Neuts (auto) 3.6 (2.0-8.3) x10*3/uL Absolute Nucleated RBC 0.000 (0.0-0.012) X10*3/uL Nucleated RBC % (auto) 0.0 (0.0-0.2) /100WBC Sodium 136 (135-145) mmol/L Potassium 4.2 (3.3-5.1) mmol/L Chloride 99 (96-108) mmol/L Carbon Dioxide 23 (22-29) mmol/L Anion Gap 18 (12-20) BUN 8 L (9-16) mg/dL Creatinine 1.05 (0.5-1.4) mg/dL Estim Creat Clear Calc 65.3 Estimated GFR 57 Random Glucose 103 (60-115) mg/dL Calcium 9.3 D (8.4-10.2) mg/dL Total Bilirubin 0.3 (0.0-1.0) mg/dL Direct Bilirubin < 0.2 (0.0-0.5) mg/dL AST 30 (5-31) U/L ALT 18 (0-31) U/L Alkaline Phosphatase 89 D (39-117) U/L Total Protein 7.7 (6.5-8.0) g/dL Albumin 4.6 (3.5-5.0) g/dL Lipase 9 (8-78) U/L Ethyl Alcohol < 10 mg/dL ECG Data Attestation: I personally reviewed and interpreted this ECG as follows: Interpretation: Normal sinus rhythm heart rate 76 beats per minute normal interval normal axis no acute ST changes no acute ischemia Discharge Plan Discharge Clinical Impression: Abdominal pain, Overdose by ingestion Patient Disposition: Home, Self-Care Instructions: Abdominal Pain (ED), Adult Overdose (ED) Additional Instructions: Do not take medications over the dose prescribed Follow-up with therapist Pollo for nausea Take milk of magnesia as needed for constipation Prescriptions: New ondansetron 4 mg tablet,disintegrating 4 mg PO Q6-8H PRN (Reason: nausea and vomiting) Qty: 7 0RF No Action nicotine 21 mg/24 hr patch 24 hour 1 patch transdermal DAILY 7 Days Qty: 7 0RF ascorbic acid (vitamin C) 500 mg tablet 500 mg PO DAILY 30 Days Qty: 30 5RF polyethylene glycol 3350 17 gram/dose powder 17 g PO DAILY Qty: 510 3RF lactulose 20 gram/30 mL solution 20 g PO BID PRN (Reason: laxative effect) 15 Days Qty: 1200 0RF cholecalciferol (vitamin D3) 50 mcg (2,000 unit) capsule 50 mcg PO DAILY 30 Days Qty: 30 5RF vitamin B complex [B Complex-Vitamin B12] Tablet 1 tab PO DAILY 30 Days Qty: 30 5RF nicotine 7 mg/24 hr patch 24 hour 1 patch transdermal Q24H 28 Days Qty: 28 5RF Trintellix 10 mg tablet 10 mg PO DAILY 30 Days Qty: 30 1RF ropinirole 0.5 mg tablet 0.5 mg PO BEDTIME 30 Days Qty: 30 3RF Rx Instructions: administer 1-3 hours before bedtime lorazepam 2 mg tablet 2 mg PO BID PRN (Reason: anxiety) 30 Days Qty: 60 0RF gabapentin 400 mg capsule 400 mg PO TID 30 Days Qty: 90 1RF tizanidine 4 mg tablet 4 mg PO TID PRN (Reason: muscle spasms) 30 Days Qty: 90 0RF doxepin 10 mg capsule 10 mg PO BEDTIME PRN (Reason: anxiety) 30 Days Qty: 30 1RF loperamide 2 mg tablet 2 mg PO .COMPLEX Qty: 60 0RF Rx Instructions: Take 2 tabs by mouth X 1; then, 1 tab by mouth after each loose stool. Max of 16 mg/day. clonidine HCl 0.1 mg tablet 0.1 mg PO BEDTIME Qty: 14 0RF ondansetron 4 mg tablet,disintegrating 4 mg PO Q8H 3 Days Qty: 9 0RF (DME) compress.stocking,knee,reg,lrg Misc See Rx Instructions .Route Qty: 2 0RF Rx Instructions: As directed furosemide [Lasix] 20 mg tablet 20 mg PO QAM 7 Days Qty: 7 0RF Adult Multivitamin Gummies 200 mcg tablet,chewable 2 tab PO DAILY Qty: 60 0RF nicotine 14 mg/24 hr patch 24 hour 1 patch transdermal DAILY 7 Days Qty: 7 0RF methadone 10 mg/mL concentrate 70 mg PO DAILY Rx Instructions: [facility] Interventions: ED Discharge Assessment Last Done: 05/17/22 04:19 Discharge Date/Time: 05/17/22 04:20
[2022-05-17] MEDS: Milk of Magnesia 30 ML ORAL.SUSP PO (04:05)
[2022-05-17] MEDS: bisacodyL 5 MG TABLET.DR 10 MG PO (04:05)
== END 2022-05-17 04:20 | disposition home or self-care (01) ==
PROVIDERS: Emergency Provider Internal Medicine; PCP Internal Medicine
DX: T42.6X1A Poisoning by other antiepileptic and sedative-hypnotic drugs, accidental (unintentional), initial encounter (principal); Y92.9 Unspecified place or not applicable; K59.00 Constipation, unspecified; R10.9 Unspecified abdominal pain; Z79.899 Other long term (current) drug therapy; Z87.891 Personal history of nicotine dependence
CPT/HCPCS: 36415; 80053; 82077; 82248; 83690; 85025; 93005; 96372; 99284; J1885

== ENCOUNTER 2022-05-28 07:59 | Inpatient (IN) | payer OTHER, SELFPAY ==
[2022-05-28] VITALS (9 sets, daily range): BP systolic 113–147; BP diastolic 57–88; PULSE 93–114; RESP 10–18; TEMP 36.6–37.1; O2SAT 97–100; BMI 24.6
--- NOTE | ~2022-05-28 | CT_ITS ---
EXAMINATION: CT HEAD WITHOUT CONTRAST CLINICAL INFORMATION: New seizure COMPARISON: Head CT 03/05/2019 TECHNIQUE: Contiguous axial imaging was performed from the skull base to vertex without intravenous administration of contrast. This CT examination was performed using dose optimization techniques as appropriate, variously including the following: *Automated exposure control *Adjustment of mA and/or kV according to patient size (this includes techniques or standardized protocols for targeted exams where dose is matched to indication/reason for exam; i.e. extremities or head) *Use of iterative reconstruction technique DLP: 1646 mGy-cm FINDINGS: There is no evidence of acute intracranial hemorrhage or territorial infarction. No abnormal mass effect or midline shift is appreciated. Panda-white differentiation is well preserved. No extra-axial fluid collections. The ventricular system and cortical sulci are normal in size. The osseous structures and soft tissues are normal. The visualized paranasal sinuses and mastoid air cells are well aerated. CT/CT head/brain wo IV con IMPRESSION: No CT evidence of acute intracranial abnormality.
--- NOTE | ~2022-05-28 | CT_ITS ---
EXAMINATION: CT ABDOMEN AND PELVIS WITH CONTRAST CLINICAL INFORMATION: Nausea and vomiting COMPARISON: CT abdomen pelvis 02/26/2022 TECHNIQUE: Multidetector volumetric images were obtained from the superior aspect of the liver through the pubic symphysis following administration 85 mL of Omnipaque 350 intravenous contrast. Sagittal and coronal reformatted images were obtained on the technologist's workstation. This CT examination was performed using dose optimization techniques as appropriate, variously including the following: *Automated exposure control *Adjustment of mA and/or kV according to patient size (this includes techniques or standardized protocols for targeted exams where dose is matched to indication/reason for exam; i.e. extremities or head) *Use of iterative reconstruction technique DLP: 821 mGy-cm FINDINGS: Visualized lung bases are well aerated. The liver demonstrates normal size, contour and attenuation. Minimal intrahepatic biliary ductal dilatation is chronic in nature. The gallbladder is normal in appearance. The pancreas, spleen and adrenal glands are unremarkable. Symmetrically enhancing kidneys. There is no hydronephrosis of either kidney. The stomach is decompressed. Normal caliber loops of small and large bowel. Normal appendix. Normal caliber abdominal aorta. No retroperitoneal lymphadenopathy. The bladder is normal in appearance. Unremarkable CT appearance of the uterus. Small amount of free pelvic fluid, often times physiologic. 2.2 cm left adnexal cystic focus (previously 4 cm). No inguinal lymphadenopathy. Mild degenerative changes of the spine. CT/CT abdomen pelvis w IV con IMPRESSION: -No CT evidence for acute abnormality within the abdomen or pelvis. -Interval decrease in size of now 2.2 cm left adnexal cystic lesion. Fleischner guidelines were followed.
--- NOTE | 2022-05-28 08:38 | ECG_ITS ---
Test Reason : post ictal Blood Pressure : / mmHG Vent. Rate : 095 BPM Atrial Rate : 095 BPM P-R Int : 178 ms QRS Dur : 086 ms QT Int : 284 ms P-R-T Axes : 000 056 268 degrees QTc Int : 356 ms Normal sinus rhythm Nonspecific ST and T wave abnormality Abnormal ECG When compared with ECG of 16-MAY-2022 22:01, QT has shortened T wave inversion more evident in Anterior leads Referred By: Maki Bowens Electronically Signed By:MOLLY BARR MD
[2022-05-28 09:09] LABS: Glucose, Whole Blood 140 mg/dL (60-115)
--- NOTE | 2022-05-28 09:20 | PC.NURSE ---
pt is a/o x 3 no sob/gareth noted lungs - cta. abd soft and n/t, bs + x 4 quads. heart sounds reguar. no edema noted. pt aware of plan of care.
[2022-05-28 09:27] LABS: MANUAL DIFF FLAG NO
--- NOTE | 2022-05-28 09:28 | PC.NURSE ---
THIS RN AND PCT JAMILA WITNESSED PT HAVING A TONIC CLONIC SEIZURE LASTING 1 MINUTE WITH SMALL AMOUNT OF SPUTUM IN MOUTH. AWARE.
[2022-05-28] MEDS: 0.9 % Sodium Chloride 1,000 ML 999 ML IV (09:30)
[2022-05-28 09:31] LABS: Basophils Percent Auto 0.2 % (0-2); Hematocrit 36.7 % (37.0-47.0); Hemoglobin 12.6 g/dl (12.0-16.0); Imm Gran Abs Auto 0.01 X10*3/uL (0.00-0.03); Imm Gran Pct Auto 0.2 % (0.0-0.4); Lymphocytes Absolute Auto 0.5 X10*3/uL (1.2-4.9); Lymphocytes Percent Auto 12.2 % (20-40); Mean Corpuscular HGB Conc 34.3 g/dl (31.0-35.0); Mean Corpuscular Volume 84.4 fL (80.0-98.0); Mean Platelet Volume 12.4 fL (9.4-12.3); Monocytes Absolute Auto 0.1 X10*3/uL (0.1-1.2); Monocytes Percent Auto 2.1 % (2-11); Neutrophils Absolute Auto 3.7 x10*3/uL (2.0-8.3); Neutrophils Percent Auto 85.3 % (45-73); Platelet Count 180 X10*3/uL (160-400); Red Blood Count 4.35 X10*6/uL (4.20-5.50); Red Cell Distribution Width 11.9 % (11.0-16.0); White Blood Count 4.3 X10*3/uL (4.8-10.8)
[2022-05-28] MEDS: Midazolam HCl/PF 2 MG/2 ML VIAL 1 MG IVPUSH (09:31)
[2022-05-28] MEDS: ondansetron HCL 4 MG/2 ML VIAL IVPUSH ×2 (09:31→16:33)
[2022-05-28] MEDS: levETIRAcetam in NaCl (iso-os) 1,000 MG/100 ML PIGGYBACK 400 MG IV (09:32)
[2022-05-28 09:50] LABS: Alanine Aminotransferase 44 U/L (0-31); Albumin Level 4.9 g/dL (3.5-5.0); Alkaline Phosphatase 100 U/L (39-117); Anion Gap 20 (12-20); Aspartate Amino Transferase 31 U/L (5-31); Bilirubin Direct 0.2 mg/dL (0.0-0.5); Bilirubin Total 0.3 mg/dL (0.0-1.0); Blood Urea Nitrogen 10 mg/dL (9-16); Calcium 9.6 mg/dL (8.4-10.2); Carbon Dioxide 23 mmol/L (22-29); Chloride 101 mmol/L (96-108); Estimated Glomerular Filt Rate > 60; Ethanol < 10 mg/dL; Glucose Random 155 mg/dL (60-115); Lipase 8 U/L (8-78); Potassium 3.5 mmol/L (3.3-5.1); Sodium 140 mmol/L (135-145)
[2022-05-28 09:58] LABS: HCG Quantitative < 2 mIU/mL
[2022-05-28] MEDS: iohexoL 350 MG/ML 100 ML INFUS..BTL IV (10:25)
--- NOTE | 2022-05-28 10:27 | ED_ITS ---
HPI - Seizure General Chief Complaint: Seizure Stated Complaint: SZ,10 MIN PER FAM,POST ICTAL AT THIS TIME PER EMS Time Seen by Provider: 05/28/22 08:14 History of Present Illness HPI Narrative: Patient is a 41-year-old female with a history of alcohol abuse in the past. Positive history of seizures in the past. Question related to alcohol abuse. Patient denies using alcohol within the last month. Had a seizure at home that was witnessed by family. Lasted a minute with a positive postictal state. Patient was sent in for further evaluation also complaining of nausea vomiting a bdominal pain. Denies any marijuana use. Denies any abdominal surgery in the past. No cough no congestion or upper respiratory symptoms. No diaphoresis. Patient is from home. History of chronic pancreatitis in the past. History of polysubstance abuse. Related Data Home Medications Medication Instructions Recorded Confirmed methadone 10 mg/mL oral concentrate 70 mg PO DAILY 01/01/22 03/18/22 Previous Rx's Medication Instructions Recorded compress.stocking,knee,reg,lrg #2 ea 04/23/21 furosemide 20 mg tablet (Lasix) 20 mg PO QAM 7 days #7 tabs 04/23/21 nicotine 21 mg/24 hr daily 1 patch transdermal DAILY 7 days 10/10/21 transdermal patch #7 ea clonidine HCl 0.1 mg tablet 0.1 mg PO BEDTIME #14 tabs 10/16/21 ondansetron 4 mg disintegrating 4 mg PO Q8H 3 days #9 tabs 10/16/21 tablet ascorbic acid (vitamin C) 500 mg 500 mg PO DAILY 30 days #30 tabs 11/05/21 tablet multivitamin with minerals-folic 2 tab PO DAILY #60 tabs 11/26/21 acid 200 mcg chewable tablet (Adult Multivitamin Gummies) nicotine 14 mg/24 hr daily 1 patch transdermal DAILY 7 days 11/26/21 transdermal patch #7 ea polyethylene glycol 3350 17 17 g PO DAILY #510 grams 12/31/21 gram/dose oral powder lactulose 20 gram/30 mL oral 20 g (30 mL) PO BID PRN laxative 01/01/22 solution effect 15 days #1,200 mL cholecalciferol (vitamin D3) 50 50 mcg PO DAILY 30 days #30 caps 03/01/22 mcg (2,000 unit) capsule vitamin B complex (B 1 tab PO DAILY 30 days #30 tabs 03/27/22 Complex-Vitamin B12 tablet) nicotine 7 mg/24 hr daily 1 patch transdermal Q24H 28 days 03/28/22 transdermal patch #28 ea vortioxetine 10 mg tablet 10 mg PO DAILY 30 days #30 tabs 04/10/22 ropinirole 0.5 mg tablet 0.5 mg PO BEDTIME 30 days #30 tabs 04/27/22 gabapentin 400 mg capsule 400 mg PO TID 30 days #90 caps 05/07/22 doxepin 10 mg capsule 10 mg PO BEDTIME PRN anxiety 30 05/13/22 days #30 caps tizanidine 4 mg tablet 4 mg PO TID PRN muscle spasms 30 05/13/22 days #90 tabs ondansetron 4 mg disintegrating 4 mg PO Q6-8H PRN nausea and 05/17/22 tablet vomiting #7 tabs loperamide 2 mg tablet 2 mg PO .COMPLEX #60 tabs 05/22/22 lorazepam 2 mg tablet 2 mg PO BID PRN anxiety 30 days 05/22/22 #60 tabs Allergies Allergy/AdvReac Type Severity Reaction Status Date / Time codeine Allergy Mild ITCHING Verified 03/18/22 16:43 [From Tylenol-Codeine #2] naloxone [From NARCAN] Allergy Unknown ITCHING, Verified 03/18/22 16:43 HIVES, THROAT CLOSES clonazepam AdvReac Mild headaches,d Verified 03/18/22 16:43 izziness Codeine Sulfate Allergy Unknown pruritus Uncoded 03/18/22 16:43 TUNA FISH Allergy Unknown UNKNOWN Uncoded 03/18/22 16:43 Review of Systems Review of Systems: Positive nausea vomiting Positive seizure prior to arrival Yes all other systems are reviewed and are negative PENDING SALE TO [facility] Past Medical History Attestation statement: The following information was validated with the patient. Medical History Anxiety Cellulitis of left ankle Chronic pancreatitis Constipation Depression History of seizures History of substance abuse Insomnia Obesity (BMI 30-39.9) Overweight (BMI 25.0-29.9) Smoker Surgical History No pertinent past surgical history Family History Family History Father Hypertension Mother Medical history unknown Paternal Grandmother Lung cancer Paternal Grandfather Bone cancer Maternal Uncle Mouth cancer Social History Social History Housing: House Alcohol intake: never Patient Tobacco Use Status: Former Tobacco user Smoked in Last 30 Days: No e-Cigarette/Vaping Use: Never Used Second Hand Smoke Exposure: Yes Use of substances other than those prescribed or required for medical reasons: No Substance Use Type: Unknown Advance Directives: No Advance Directives Information Provided: No Patient : No service: No Current occupational status: unemployed Cognitive needs: No Hearing needs: No Vision needs: No Physical Exam 2 Vital Signs: Vital Signs: Last Vital Signs Temp 98.7 F 05/28/22 10:41 Pulse 105 H 05/28/22 10:41 Resp 18 05/28/22 10:41 BP 128/76 05/28/22 10:41 Pulse Ox 100 05/28/22 10:41 O2 Del Method 05/28/22 10:41 BMI result Body Mass Index 24.6 Appearance: Alert. Oriented X3. No acute distress. Eyes: Pupils equal, round and reactive to light. ENT: Pharynx normal. Neck: Normal inspection. Neck supple. No lymph nodes noted. No crepitus CVS: Tachycardic but regular. Pulses normal. Normal S1 and S2 Respiratory: No respiratory distress. Breath sounds normal. No Wheezing. No rales Abdomen: Soft and nontender. No rigidity. No distention. good BS x4 Skin: Skin warm and dry. Normal skin color. Normal skin turgor. Extremities: No lower extremity edema. Neurovascular intact to all extremities. No Lacerations. No Rash Neuro: Oriented X 3. No motor deficit. No sensory deficit. Moving all extermities. No slurred speech Medications Administered Discontinued Medications Generic Name Dose Route Start Last Admin Trade Name Freq PRN Reason Stop Dose Admin Sodium Chloride 1,000 mls @ 999 mls/hr 05/28/22 08:45 05/28/22 09:30 Ns IV 05/28/22 09:45 999 mls/hr .Q1H1M ALONDRA Administration Levetiracetam 1,000 mg in 100 mls @ 400 mls/hr 05/28/22 09:21 05/28/22 11:35 Keppra IV 05/28/22 09:35 Infused ONCE ONE Infusion Iohexol 100 ml 05/28/22 10:24 05/28/22 10:25 Iohexol 350 Mg/Ml 100 Ml Infus..Btl IV 05/28/22 10:25 85 ml ONCE ONE Administration Lorazepam 2 mg 05/28/22 11:17 05/28/22 11:25 Lorazepam 1 Mg Tablet PO 05/28/22 11:18 2 mg ONCE ONE Administration Midazolam HCl 1 mg 05/28/22 09:21 05/28/22 09:31 Midazolam Hcl/Pf 2 Mg/2 Ml Vial IVPUSH 05/28/22 09:22 1 mg ONCE ONE Administration Ondansetron HCl 4 mg 05/28/22 08:38 05/28/22 09:31 Ondansetron Hcl 4 Mg/2 Ml Vial IVPUSH 05/28/22 08:39 4 mg ONCE ONE Administration MDM - Seizure MDM Narrative Medical decision making narrative: Patient's EKG showed a sinus rhythm heart rate was approximately 100 MA QRS QTC within normal limits there is nonspecific T-wave inversions over the anterior leads. Patient glucose was over 100 no evidence for hypoglycemia. Patient had a history of pancreatitis. Today's lipase was 8. Less likely secondary to pancreatitis. alcohol was negative. Patient denies recent alcohol intake within the last month. test was negative no evidence for ectopic. CT scan of the head and abdomen/pelvis was ordered. Patient had a 2nd episode of seizure in the emergency department. There was witnessed by nursing to be tonic clonic. Lasting approximately 1 minute. With positive postictal state. Given 2 seizure episodes. Patient was started on Keppra 1 g IV. Blood count appears normal. will most likely require admission for further evaluation. Upon family arrival. Mom stated patient baseline is on 2 mg of Ativan twice a day. She recently ran out of Ativan as of last night. Patient had a seizure this morning. Had another seizure in the ED. given p.o. Ativan. Patient CT scan of the head was grossly negative for any acute evidence of bleeding. CT scan of the abdomen pelvis was negative for any acute obstruction abscess perforation. Will admit patient for further monitoring. Currently in stable condition. Lab Data Result diagrams: 05/28/22 09:23 05/28/22 09:23 Labs: Lab Results 05/28/22 05/28/22 05/28/22 Range/Units 09:04 09:23 09:23 WBC 4.3 L (4.8-10.8) X10*3/uL RBC 4.35 (4.20-5.50) X10*6/uL Hgb 12.6 (12.0-16.0) g/dl Hct 36.7 L (37.0-47.0) % MCV 84.4 (80.0-98.0) fL MCH 29.0 (27.0-33.0) pg MCHC 34.3 (31.0-35.0) g/dl RDW 11.9 (11.0-16.0) % Plt Count 180 (160-400) X10*3/uL MPV 12.4 H (9.4-12.3) fL Immature Gran % (Auto) 0.2 (0.0-0.4) % Neut % (Auto) 85.3 H (45-73) % Lymph % (Auto) 12.2 L (20-40) % [place] % (Auto) 2.1 (2-11) % Eos % (Auto) 0.0 (0-4) % Baso % (Auto) 0.2 (0-2) % Lymph # (Auto) 0.5 L (1.2-4.9) X10*3/uL [place] # (Auto) 0.1 (0.1-1.2) X10*3/uL Eos # (Auto) 0.0 (0.0-0.4) X10*3/uL Baso # (Auto) 0.0 (0.0-0.2) X10*3/uL Abs Immat Gran (auto) 0.01 (0.00-0.03) X10*3/uL Absolute Neuts (auto) 3.7 (2.0-8.3) x10*3/uL Absolute Nucleated RBC 0.000 (0.0-0.012) X10*3/uL Nucleated RBC % (auto) 0.0 (0.0-0.2) /100WBC Sodium 140 (135-145) mmol/L Potassium 3.5 (3.3-5.1) mmol/L Chloride 101 (96-108) mmol/L Carbon Dioxide 23 (22-29) mmol/L Anion Gap 20 (12-20) BUN 10 (9-16) mg/dL Creatinine 0.98 (0.5-1.4) mg/dL Estim Creat Clear Calc 70.0 Estimated GFR > 60 POC Glucose 140 H (60-115) mg/dL Random Glucose 155 H (60-115) mg/dL Calcium 9.6 (8.4-10.2) mg/dL Magnesium (1.6-2.6) mg/dL Total Bilirubin 0.3 (0.0-1.0) mg/dL Direct Bilirubin 0.2 (0.0-0.5) mg/dL AST 31 (5-31) U/L ALT 44 H (0-31) U/L Alkaline Phosphatase 100 (39-117) U/L Total Protein 8.0 (6.5-8.0) g/dL Albumin 4.9 (3.5-5.0) g/dL Lipase 8 (8-78) U/L Beta HCG, Quant mIU/mL Ethyl Alcohol < 10 mg/dL COVID-19 ([facility]) (Negative) COVID-19 Clin Com 05/28/22 05/28/22 Range/Units 09:23 10:33 WBC (4.8-10.8) X10*3/uL RBC (4.20-5.50) X10*6/uL Hgb (12.0-16.0) g/dl Hct (37.0-47.0) % MCV (80.0-98.0) fL MCH (27.0-33.0) pg MCHC (31.0-35.0) g/dl RDW (11.0-16.0) % Plt Count (160-400) X10*3/uL MPV (9.4-12.3) fL Immature Gran % (Auto) (0.0-0.4) % Neut % (Auto) (45-73) % Lymph % (Auto) (20-40) % [place] % (Auto) (2-11) % Eos % (Auto) (0-4) % Baso % (Auto) (0-2) % Lymph # (Auto) (1.2-4.9) X10*3/uL [place] # (Auto) (0.1-1.2) X10*3/uL Eos # (Auto) (0.0-0.4) X10*3/uL Baso # (Auto) (0.0-0.2) X10*3/uL Abs Immat Gran (auto) (0.00-0.03) X10*3/uL Absolute Neuts (auto) (2.0-8.3) x10*3/uL Absolute Nucleated RBC (0.0-0.012) X10*3/uL Nucleated RBC % (auto) (0.0-0.2) /100WBC Sodium (135-145) mmol/L Potassium (3.3-5.1) mmol/L Chloride (96-108) mmol/L Carbon Dioxide (22-29) mmol/L Anion Gap (12-20) BUN (9-16) mg/dL Creatinine (0.5-1.4) mg/dL Estim Creat Clear Calc Estimated GFR POC Glucose (60-115) mg/dL Random Glucose (60-115) mg/dL Calcium (8.4-10.2) mg/dL Magnesium 2.0 (1.6-2.6) mg/dL Total Bilirubin (0.0-1.0) mg/dL Direct Bilirubin (0.0-0.5) mg/dL AST (5-31) U/L ALT (0-31) U/L Alkaline Phosphatase (39-117) U/L Total Protein (6.5-8.0) g/dL Albumin (3.5-5.0) g/dL Lipase (8-78) U/L Beta HCG, Quant < 2 mIU/mL Ethyl Alcohol mg/dL COVID-19 ([facility]) Negative (Negative) COVID-19 Clin Com See Note Critical Care Time Critical Care Time Critical Care Time: Yes Total Critical Care Time: 40 Attestation: I have personally provided 40 minutes of critical care time exclusive of time spent on separately billable procedures. Time includes review of lab data, radiology results, discussion with consultants, and monitoring for potential decompensation. Interventions were performed as documented above Discharge Plan Discharge Clinical Impression: Seizure Patient Disposition: Admitted As Inpatient Prescriptions: No Action nicotine 21 mg/24 hr patch 24 hour 1 patch transdermal DAILY 7 Days Qty: 7 0RF ascorbic acid (vitamin C) 500 mg tablet 500 mg PO DAILY 30 Days Qty: 30 5RF polyethylene glycol 3350 17 gram/dose powder 17 g PO DAILY Qty: 510 3RF lactulose 20 gram/30 mL solution 20 g PO BID PRN (Reason: laxative effect) 15 Days Qty: 1200 0RF cholecalciferol (vitamin D3) 50 mcg (2,000 unit) capsule 50 mcg PO DAILY 30 Days Qty: 30 5RF vitamin B complex [B Complex-Vitamin B12] Tablet 1 tab PO DAILY 30 Days Qty: 30 5RF nicotine 7 mg/24 hr patch 24 hour 1 patch transdermal Q24H 28 Days Qty: 28 5RF Trintellix 10 mg tablet 10 mg PO DAILY 30 Days Qty: 30 1RF ropinirole 0.5 mg tablet 0.5 mg PO BEDTIME 30 Days Qty: 30 3RF Rx Instructions: administer 1-3 hours before bedtime gabapentin 400 mg capsule 400 mg PO TID 30 Days Qty: 90 1RF tizanidine 4 mg tablet 4 mg PO TID PRN (Reason: muscle spasms) 30 Days Qty: 90 0RF doxepin 10 mg capsule 10 mg PO BEDTIME PRN (Reason: anxiety) 30 Days Qty: 30 1RF loperamide 2 mg tablet 2 mg PO .COMPLEX Qty: 60 0RF Rx Instructions: Take 2 tabs by mouth X 1; then, 1 tab by mouth after each loose stool. Max of 16 mg/day. lorazepam 2 mg tablet 2 mg PO BID PRN (Reason: anxiety) 30 Days Qty: 60 0RF ondansetron 4 mg tablet,disintegrating 4 mg PO Q6-8H PRN (Reason: nausea and vomiting) Qty: 7 0RF clonidine HCl 0.1 mg tablet 0.1 mg PO BEDTIME Qty: 14 0RF ondansetron 4 mg tablet,disintegrating 4 mg PO Q8H 3 Days Qty: 9 0RF (DME) compress.stocking,knee,reg,lrg Misc See Rx Instructions .Route Qty: 2 0RF Rx Instructions: As directed furosemide [Lasix] 20 mg tablet 20 mg PO QAM 7 Days Qty: 7 0RF Adult Multivitamin Gummies 200 mcg tablet,chewable 2 tab PO DAILY Qty: 60 0RF nicotine 14 mg/24 hr patch 24 hour 1 patch transdermal DAILY 7 Days Qty: 7 0RF methadone 10 mg/mL concentrate 70 mg PO DAILY Rx Instructions: [facility]
[2022-05-28 11:01] LABS: COVID-19 Test Negative (Negative); IDNOW Serial# 55D5AD1C
[2022-05-28] MEDS: LORazepam 1 MG TABLET 2 MG PO ×2 (11:25→22:16)
[2022-05-28 13:55] LABS: Appearance Urine Clear; Color Urine Yellow; Glucose Urine UA Negative (Negative); Leukocyte Esterase Urine Negative (Negative); Nitrite Urine Negative (Negative); PH 6.5 (5.0-9.0); Specific Gravity - Urine >= 1.030 (1.005-1.025); Urine Blood Negative (Negative); Urine Ketones Negative (Negative); Urine Protein Trace mg/dL (Neg-Trace)
[2022-05-28 14:15] LABS: Amphetamine Screen Urine Not Detected (Not Detect); Barbiturates, Urine Not Detected (Not Detect); Benzodiazepines Screen Urine POSITIVE (Not Detect); Cannabinoid Screen Urine Not Detected (Not Detect); Cocaine Screen Urine Not Detected (Not Detect); Fentanyl, urine Not Detected (Not Detect); Opiate Screen Urine Not Detected (Not Detect); Phencyclidine Screen Urine Not Detected (Not Detect)
--- NOTE | 2022-05-28 14:43 | PHA.MEDREC ---
Pharmacy Consult ? Medication Reconciliation Pharmacy has completed the medication reconciliation. Patient reports taking lorezapam and gabapenin mainly. Reports also taking doxepin. Methadone will need to be confirmed in the morning, patient reports using [facility]. Bonnie Gill, lalaD
--- NOTE | 2022-05-28 15:16 | PM.IMHP ---
History of Present Illness Date of Service: 05/28/22 Attending physician on admission: Noble Vasquez Chief Complaint: seizure 41-year-old female with history of depression, anxiety, history of alcohol abuse, and opiate dependence on methadone presented to the ED via EMS today following seizure. The patient is quite drowsy and her mother assists with history. Her mother reports that the patient ran out of her lorazepam 2 mg which he takes twice daily every day and the medication was set to be refilled today. Last dose was taken yesterday. Her mother reports her daughter became unsteady on her feet needing to have a bowel movement and then developed what sounds like a tonic clonic seizure after falling to the floor witnessed by her mother. She was not quite confused upon conclusion of the seizure. Has had complaints of nausea, vomiting, abdominal pain. Has had history of seizures in the past all related to substance withdrawal, most recently benzo withdrawal over 1 year ago per the patient's mother. Does have a history of alcohol withdrawal seizures but has not had any alcohol in 5 years. Denies any other substance use. Head CT. Hematology and chemistries were negative. Urine drug screen positive for benzodiazepines. Review of Systems Review of Systems: General: No fevers, malaise, unintentional weight loss HEENT: No blurred vision, diplopia. No sore throat, nasal congestion, rhinorrhea, sinus pain, ear pain Cardiovascular: No chest pain, palpitations, or leg edema Respiratory: No shortness of breath, wheezing, cough GI: + abdominal pain, +nausea, +vomiting. No diarrhea, constipation, melena, hematochezia : No dysuria, hematuria, increased urinary frequency, decreased urinary output MSK: No myalgia, back pain Neuro: +seizure. No headaches, weakness, paresthesias Skin: No rashes or lesions [facility] Medical History Anxiety Cellulitis of left ankle Chronic pancreatitis Constipation Depression History of seizures History of substance abuse Insomnia Obesity (BMI 30-39.9) Overweight (BMI 25.0-29.9) Smoker Family History Father Hypertension Mother Medical history unknown Paternal Grandmother Lung cancer Paternal Grandfather Bone cancer Maternal Uncle Mouth cancer Surgical History No pertinent past surgical history Social History Housing: House Alcohol intake: never Patient Tobacco Use Status: Former Tobacco user Smoked in Last 30 Days: No e-Cigarette/Vaping Use: Never Used Second Hand Smoke Exposure: Yes Use of substances other than those prescribed or required for medical reasons: No Substance Use Type: Unknown Advance Directives: No Advance Directives Information Provided: No Patient : No service: No Current occupational status: unemployed Cognitive needs: No Hearing needs: No Vision needs: No Meds Allergies Allergy/AdvReac Type Severity Reaction Status Date / Time codeine Allergy Mild ITCHING Verified 03/18/22 16:43 [From Tylenol-Codeine #2] naloxone [From NARCAN] Allergy Unknown ITCHING, Verified 03/18/22 16:43 HIVES, THROAT CLOSES clonazepam AdvReac Mild headaches,d Verified 03/18/22 16:43 izziness Codeine Sulfate Allergy Unknown pruritus Uncoded 03/18/22 16:43 TUNA FISH Allergy Unknown UNKNOWN Uncoded 03/18/22 16:43 Home Medications Medication Instructions Recorded Confirmed Last Taken Type methadone 10 mg/mL oral concentrate 70 mg PO DAILY 01/01/22 03/18/22 Unknown History lorazepam 2 mg tablet 2 mg PO BID 05/28/22 05/28/22 Unknown History Physical Exam Vital Signs and Narrative: Vital Signs: Last Vital Signs Temp 98.5 F 05/28/22 14:11 Pulse 104 H 05/28/22 14:11 Resp 15 05/28/22 14:11 BP 124/78 05/28/22 14:11 Pulse Ox 99 05/28/22 14:11 O2 Del Method 05/28/22 14:11 BMI result Body Mass Index 24.6 Constitutional - Awake and Alert, No apparent distress, pallor Eyes - PERRLA, EOMI Cardiovascular - S1S2, tachycardic, regular rhythm, No edema Respiratory - Normal lung expansion, Normal respiratory effort, No respiratory distress, CTA bilaterally Gastrointestinal - mild diffuse tenderness to palpation. Soft, ND; +BS; No rebound or guarding Extremities - no calf tenderness bilaterally, no swelling Musculoskeletal - Normal inspection, normal ROM Skin - Warm/Dry Neurological - Alert & oriented x3, CN II-XII in tact, 5/5 strength BUE and BLE Psychological - Appropriate affect Results Labs CBC and Chem 7: 05/28/22 09:23 05/28/22 09:23 Labs: Laboratory Results - last 24 hr 05/28/22 05/28/22 05/28/22 09:04 09:23 09:23 MCV 84.4 MCH 29.0 MCHC 34.3 RDW 11.9 Plt Count 180 MPV 12.4 H Immature Gran % (Auto) 0.2 Neut % (Auto) 85.3 H Lymph % (Auto) 12.2 L [place] % (Auto) 2.1 Eos % (Auto) 0.0 Baso % (Auto) 0.2 Lymph # (Auto) 0.5 L [place] # (Auto) 0.1 Eos # (Auto) 0.0 Baso # (Auto) 0.0 Abs Immat Gran (auto) 0.01 Absolute Neuts (auto) 3.7 Absolute Nucleated RBC 0.000 Nucleated RBC % (auto) 0.0 Anion Gap 20 Estim Creat Clear Calc 70.0 Estimated GFR > 60 POC Glucose 140 H Random Glucose 155 H Calcium 9.6 Magnesium Total Bilirubin 0.3 Direct Bilirubin 0.2 AST 31 ALT 44 H Alkaline Phosphatase 100 Total Protein 8.0 Albumin 4.9 Lipase 8 Beta HCG, Quant Urine Color Urine Appearance Urine pH Ur Specific [place] Urine Protein Urine Glucose (UA) Urine Ketones Urine Blood Urine Nitrite Ur Leukocyte Esterase Urine Opiates Screen Urine Fentanyl Screen Ur Barbiturates Screen Ur Phencyclidine Scrn Ur Amphetamines Screen U Benzodiazepines Scrn Urine Cocaine Screen U Marijuana (THC) Screen Ethyl Alcohol < 10 COVID-19 (ITZ) COVID-19 Clin Com 05/28/22 05/28/22 05/28/22 09:23 10:33 13:45 MCV MCH MCHC RDW Plt Count MPV Immature Gran % (Auto) Neut % (Auto) Lymph % (Auto) [place] % (Auto) Eos % (Auto) Baso % (Auto) Lymph # (Auto) [place] # (Auto) Eos # (Auto) Baso # (Auto) Abs Immat Gran (auto) Absolute Neuts (auto) Absolute Nucleated RBC Nucleated RBC % (auto) Anion Gap Estim Creat Clear Calc Estimated GFR POC Glucose Random Glucose Calcium Magnesium 2.0 Total Bilirubin Direct Bilirubin AST ALT Alkaline Phosphatase Total Protein Albumin Lipase Beta HCG, Quant < 2 Urine Color Yellow Urine Appearance Clear Urine pH 6.5 Ur Specific [place] >= 1.030 H Urine Protein Trace Urine Glucose (UA) Negative Urine Ketones Negative Urine Blood Negative Urine Nitrite Negative Ur Leukocyte Esterase Negative Urine Opiates Screen Urine Fentanyl Screen Ur Barbiturates Screen Ur Phencyclidine Scrn Ur Amphetamines Screen U Benzodiazepines Scrn Urine Cocaine Screen U Marijuana (THC) Screen Ethyl Alcohol COVID-19 (ITZ) Negative COVID-19 Clin Com See Note 05/28/22 13:45 MCV MCH MCHC RDW Plt Count MPV Immature Gran % (Auto) Neut % (Auto) Lymph % (Auto) [place] % (Auto) Eos % (Auto) Baso % (Auto) Lymph # (Auto) [place] # (Auto) Eos # (Auto) Baso # (Auto) Abs Immat Gran (auto) Absolute Neuts (auto) Absolute Nucleated RBC Nucleated RBC % (auto) Anion Gap Estim Creat Clear Calc Estimated GFR POC Glucose Random Glucose Calcium Magnesium Total Bilirubin Direct Bilirubin AST ALT Alkaline Phosphatase Total Protein Albumin Lipase Beta HCG, Quant Urine Color Urine Appearance Urine pH Ur Specific [place] Urine Protein Urine Glucose (UA) Urine Ketones Urine Blood Urine Nitrite Ur Leukocyte Esterase Urine Opiates Screen Not Detected Urine Fentanyl Screen Not Detected Ur Barbiturates Screen Not Detected Ur Phencyclidine Scrn Not Detected Ur Amphetamines Screen Not Detected U Benzodiazepines Scrn POSITIVE H Urine Cocaine Screen Not Detected U Marijuana (THC) Screen Not Detected Ethyl Alcohol COVID-19 (ITZ) COVID-19 Clin Com Imaging Radiologist's Impressions: Impressions Abdomen/Pelvis CT 05/28/22 10:25 IMPRESSION: -No CT evidence for acute abnormality within the abdomen or pelvis. -Interval decrease in size of now 2.2 cm left adnexal cystic lesion. Fleischner guidelines were followed. Head CT 05/28/22 10:25 IMPRESSION: No CT evidence of acute intracranial abnormality. Assessment and Plan (1) Seizure: Status: Acute (2) Benzodiazepine withdrawal: Status: Acute Plan 41-year-old female with history of depression, anxiety, history of alcohol abuse, and opiate dependence on methadone admitted for benzodiazepine withdrawal with seizure. # benzodiazepine withdrawal -patient taking 4 mg lorazepam daily and ran out of medication yesterday -patient is mildly sedated but arousable with tachycardia -U tox positive for benzos -received 1 mg IV Versed as well as 2 mg lorazepam in the ED -resume home lorazepam -admit to telemetry # seizure most likely secondary to benzodiazepine withdrawal -patient does have positive benzos on U tox -neurology consult placed, consider EEG -resume home lorazepam 2 mg b.i.d. -seizure precautions -IV Versed p.r.n. for seizures # depression/anxiety -continue doxepin, gabapentin, lorazepam # opiate dependence -continue methadone DVT prophylaxis-Lovenox Full code Patient requires inpatient stay of at least 2 midnights due to benzodiazepine withdrawal with withdrawal seizures requiring close monitoring for decompensation which could result in . Quality Stroke Does the patient have a stroke diagnosis?: No VTE Prior VTE?: No VTE Risk Level:: Medical - moderate - high VTE Device Contraindication: Treatment Not Indicated VTE Drug Contraindication: N/A - Med Ordered
[2022-05-28] MEDS: Acetaminophen 325 MG TABLET 650 MG PO (16:33)
[2022-05-28] MEDS: 0.9 % Sodium Chloride Flush 3 ML SYRINGE IVFLUSH (16:35)
[2022-05-28 16:51] LABS: Glucose, Whole Blood 93 mg/dL (60-115)
--- NOTE | 2022-05-28 17:39 | PM.NEUROCN ---
History of Present Illness Data of Consult Service Date: 05/28/22 Primary Care Provider: Hadley Jc MD HPI Reason for consult: 2 Generalized SZ This is a 41-year-old female with history of depression, anxiety, history of alcohol abuse- sober 5 yrs , and opiate dependence on methadone since age 18 yrs with periodic lapses presented to the ED via EMS today following Generalized seizure at home with tongue biting.She had a second seizure in the emergency room.?In the past she has had alcohol withdrawal seizures about 7 years ago and couple of generalized seizures about 5 years ago when she suddenly stopped lorazepam. On this occasion she ran out of her lorazepam 2 mg twice a day dose yesterday and also apparently was taking unknown dose of gabapentin since rann out of that as well. She has bitten her tongue and complains of pain in her head and abdomen. The patient is quite drowsy and her mother assists with history.? Has had history of seizures in the past all related to substance withdrawal, most recently benzo withdrawal over 1 year ago per the patient's mother.? Does have a history of alcohol withdrawal seizures but has not had any alcohol in 5 years.? Denies any other substance use.? Head CT.? Hematology and chemistries were negative.? Urine drug screen positive for benzodiazepines. Review of Systems Review of Systems: General: No fevers, malaise, unintentional weight loss HEENT: No blurred vision, diplopia. No sore throat, nasal congestion, rhinorrhea, sinus pain, ear pain Cardiovascular: No chest pain, palpitations, or leg edema Respiratory: No shortness of breath, wheezing, cough GI: + abdominal pain, +nausea, +vomiting. No diarrhea, constipation, melena, hematochezia : No dysuria, hematuria, increased urinary frequency, decreased urinary output MSK: No myalgia, back pain Neuro: +seizure. No headaches, weakness, paresthesias Skin: No rashes or lesions Yes all other systems are reviewed and are negative PMF Past Medical History Medical History Anxiety Cellulitis of left ankle Chronic pancreatitis Constipation Depression History of seizures History of substance abuse Insomnia Obesity (BMI 30-39.9) Overweight (BMI 25.0-29.9) Smoker Family History Family History Father Hypertension Mother Medical history unknown Paternal Grandmother Lung cancer Paternal Grandfather Bone cancer Maternal Uncle Mouth cancer Surgical History Surgical History No pertinent past surgical history Social History Social History Housing: House Alcohol intake: never Patient Tobacco Use Status: Former Tobacco user Smoked in Last 30 Days: No e-Cigarette/Vaping Use: Never Used Second Hand Smoke Exposure: Yes Use of substances other than those prescribed or required for medical reasons: No Substance Use Type: Unknown Advance Directives: No Advance Directives Information Provided: No Patient : No service: No Current occupational status: unemployed Cognitive needs: No Hearing needs: No Vision needs: No Meds Allergies Allergy/AdvReac Type Severity Reaction Status Date / Time codeine Allergy Mild ITCHING Verified 03/18/22 16:43 [From Tylenol-Codeine #2] naloxone [From NARCAN] Allergy Unknown ITCHING, Verified 03/18/22 16:43 HIVES, THROAT CLOSES clonazepam AdvReac Mild headaches,d Verified 03/18/22 16:43 izziness Codeine Sulfate Allergy Unknown pruritus Uncoded 03/18/22 16:43 TUNA FISH Allergy Unknown UNKNOWN Uncoded 03/18/22 16:43 Active Medications: Current Medications Acetaminophen (Acetaminophen 325 Mg Tablet) 650 mg PO Q6H PRN PRN Reason: Pain, Mild (Pain Scale 1-3) Last Admin: 05/28/22 16:33 Dose: 650 mg Docusate Sodium (Docusate Sodium 100 Mg Capsule) 100 mg PO DAILY PRN PRN Reason: Constipation Doxepin HCl (Doxepin Hcl 10 Mg Capsule) 10 mg PO BEDTIME PRN PRN Reason: anxiety Enoxaparin Sodium (Enoxaparin Sodium 40 Mg/0.4 Ml Syringe) 40 mg SUBCUT Q24H ALONDRA Gabapentin (Gabapentin 400 Mg Capsule) 400 mg PO TID ALONDRA Lorazepam (Lorazepam 1 Mg Tablet) 2 mg PO BID ALONDRA Ondansetron HCl (Ondansetron Hcl 4 Mg/2 Ml Vial) 4 mg IVPUSH Q8H PRN PRN Reason: Nausea and Vomiting Last Admin: 05/28/22 16:33 Dose: 4 mg Ropinirole HCl (Ropinirole Hcl 0.5 Mg Tablet) 0.5 mg PO BEDTIME ALONDRA Sodium Chloride (0.9 % Sodium Chloride Flush 3 Ml Syringe) 3 ml IVFLUSH QSHIFT ALONDRA Last Admin: 05/28/22 16:35 Dose: 3 ml Home Medications Medication Instructions Recorded Confirmed Last Taken Type methadone 10 mg/mL oral concentrate 70 mg PO DAILY 01/01/22 03/18/22 Unknown History lorazepam 2 mg tablet 2 mg PO BID 05/28/22 05/28/22 Unknown History Physical Exam Vital Signs: Vital Signs: Last Vital Signs Temp 98.1 F 05/28/22 16:28 Pulse 105 H 05/28/22 16:28 Resp 16 05/28/22 16:28 BP 122/73 05/28/22 16:28 Pulse Ox 100 05/28/22 16:28 O2 Del Method 05/28/22 16:28 BMI result Body Mass Index 24.6 Neuro: Other: Restless with limited cooperation. Next poor. Nonfocal exam Results Labs CBC & Chem 7: 05/28/22 09:23 05/28/22 09:23 Labs: Short CBC 05/28/22 Range/Units 09:23 WBC 4.3 L (4.8-10.8) X10*3/uL Hgb 12.6 (12.0-16.0) g/dl Hct 36.7 L (37.0-47.0) % Plt Count 180 (160-400) X10*3/uL BMP 05/28/22 09:23 Sodium 140 Potassium 3.5 Chloride 101 Carbon Dioxide 23 BUN 10 Creatinine 0.98 Calcium 9.6 Liver Function 05/28/22 Range/Units 09:23 Total Bilirubin 0.3 (0.0-1.0) mg/dL Direct Bilirubin 0.2 (0.0-0.5) mg/dL AST 31 (5-31) U/L ALT 44 H (0-31) U/L Alkaline Phosphatase 100 (39-117) U/L Albumin 4.9 (3.5-5.0) g/dL Urine 05/28/22 Range/Units 13:45 Urine Color Yellow Urine Appearance Clear Urine pH 6.5 (5.0-9.0) Ur Specific [place] >= 1.030 H (1.005-1.025) Urine Protein Trace (Neg-Trace) mg/dL Urine Glucose (UA) Negative (Negative) mg/dL Assessment and Plan (1) Seizure: Status: Acute #2 generalized seizures appear to be most likely from benzodiazepine withdrawal and possibly gabapentin withdrawal as well. In the past she has had withdrawal seizures from alcohol as well as llorazepam. Recommendation routine EEG. CT scan of the brain was unremarkable. Restart lorazepam 2 mg twice a day. (2) Benzodiazepine withdrawal: Status: Acute Plan 41-year-old female with history of depression, anxiety, history of alcohol abuse, and opiate dependence on methadone admitted for benzodiazepine withdrawal with seizure. # benzodiazepine withdrawal -patient taking 4 mg lorazepam daily and ran out of medication yesterday -patient is mildly sedated but arousable with tachycardia -U tox positive for benzos -received 1 mg IV Versed as well as 2 mg lorazepam in the ED -resume home lorazepam -admit to telemetry # seizure most likely secondary to benzodiazepine withdrawal -patient does have positive benzos on U tox -neurology consult placed, consider EEG -resume home lorazepam 2 mg b.i.d. -seizure precautions -IV Versed p.r.n. for seizures # depression/anxiety -continue doxepin, gabapentin, lorazepam # opiate dependence -continue methadone DVT prophylaxis-Lovenox Full code Patient requires inpatient stay of at least 2 midnights due to benzodiazepine withdrawal with withdrawal seizures requiring close monitoring for decompensation which could result in . Procedures Date of Service Date of Service: 05/28/22
[2022-05-28] MEDS: Enoxaparin Sodium 40 MG/0.4 ML SYRINGE SUBCUT (19:19)
[2022-05-28] MEDS: Gabapentin 400 MG CAPSULE PO (22:16)
[2022-05-28] MEDS: rOPINIRole HCL 0.5 MG TABLET PO (23:27)
[2022-05-29 00:06] VITALS: BP 106/65; PULSE 91; RESP 15; TEMP 36.7; O2SAT 98
[2022-05-29] MEDS: 0.9 % Sodium Chloride Flush 3 ML SYRINGE IVFLUSH ×2 (00:16→09:10)
--- NOTE | 2022-05-29 02:08 | PC.NURSE ---
Pt sleeping. Breaths are even and unlabored with equal chest rises. No apparent distress noted. Family at bedside. Will continue to monitor.
[2022-05-29 04:05] VITALS: BP 129/61; PULSE 76; RESP 14; TEMP 36.6; O2SAT 98
[2022-05-29] MEDS: LORazepam 1 MG TABLET PO (04:58)
[2022-05-29] MEDS: Gabapentin 400 MG CAPSULE PO (08:26)
[2022-05-29] MEDS: LORazepam 1 MG TABLET 2 MG PO (08:26)
--- NOTE | 2022-05-29 08:40 | PC.NURSE ---
FAXED MEDICAL RELEASE TO [facility] IN [place] FOR METHADONE DOSE
[2022-05-29] MEDS: methADONE HCl 20 MG/2 ML ORAL.CONC 100 MG PO (10:21)
--- NOTE | 2022-05-29 11:44 | MHC.CM.PN ---
This senior writer met with patient for CM assessment. Patient from home. No services prior to admission. Goes to [facility]adone Clinic in [place] [facility]. Un-vax'd. Will need Filemon @ d/c. Mother @ bedside. Plan for d/c today.
--- NOTE | 2022-05-29 14:25 | PM.DS ---
DS: Providers Provider Date of Service: 05/29/22 Date of admission: 05/28/22 15:12 Date of discharge: 05/29/22 Primary care physician: Hadley Jc MD Admitting clinician: Jemima Del Cid Attending physician on admission: Noble Vasquez Consults: 05/28/22 15:12 Consult to Neurology Routine Consulting Provider: [facility] Reason for consultation: seizure, benzo withdrawal Attending physician on discharge: Arnold Mercado Discharging clinician: Jemima Del Cid DS: Diagnosis Discharge Diagnosis (1) Seizure: Status: Acute (2) Benzodiazepine withdrawal: Status: Acute DS: Summary Hospital Course Hospital Course: HPI on admission: 41-year-old female with history of depression, anxiety, history of alcohol abuse, and opiate dependence on methadone presented to the ED via EMS today following seizure.? The patient is quite drowsy and her mother assists with history.? Her mother reports that the patient ran out of her lorazepam 2 mg which he takes twice daily every day and the medication was set to be refilled today.? Last dose was taken yesterday.? Her mother reports her daughter became unsteady on her feet needing to have a bowel movement and then developed what sounds like a tonic clonic seizure after falling to the floor witnessed by her mother.? She was not quite confused upon conclusion of the seizure.? Has had complaints of nausea, vomiting, abdominal pain.? Has had history of seizures in the past all related to substance withdrawal, most recently benzo withdrawal over 1 year ago per the patient's mother.? Does have a history of alcohol withdrawal seizures but has not had any alcohol in 5 years.? Denies any other substance use.? Head CT.? Hematology and chemistries were negative.? Urine drug screen positive for benzodiazepines. Hospital course: Patient admitted for benzodiazepine withdrawal with seizure. She was initially very lethargic, anxious, tremulous, mildly tachycardic to 105, nausea/vomiting. Upon arrival to ED, patient did experience additional tonic-clonic seizure lasting 1 minute with small amount of sputum noted in the mouth. Patient given 1 mg Versed and loaded with 1000 mg Keppra. Her home dose of lorazepam 2 mg b.i.d. was then resumed without any further seizure activity. She was evaluated by Neurology who felt the seizure activity was related to benzo and possibly gabapentin withdrawal but does recommend outpatient follow-up for routine EEG. No need to continue keppra. Patient was expected to require inpatient stay of at least 2 midnights due to benzo withdrawal with seizure activity but patient improved faster than anticipated with quick return to baseline once benzodiazepines were resumed and does not require further inpatient stay. Confirmed patient has supply of lorazepam at home which was picked up from the pharmacy by her mother. She is advised to follow up soon with pcp, psychiatrist, and neurology referral was placed for outpt EEG. Status at Discharge Overall status at discharge: patient is back to baseline Time Spent with Patient Time attestation: Total time spent providing and/or coordinating discharge services: Discharge coordination time: Greater than 30 minutes Quality: Safe Use of Opioids Does Pt have an Active Cancer Diagnosis on the Problem List?: No Quality: Stroke Does the patient have a stroke diagnosis?: No Physical Exam Vital Signs: Vital Signs: Last Vital Signs Temp 97.8 F 05/29/22 04:05 Pulse 76 05/29/22 04:05 Resp 14 05/29/22 04:05 BP 129/61 05/29/22 04:05 Pulse Ox 98 05/29/22 04:05 O2 Del Method 05/29/22 04:05 BMI result Body Mass Index 24.6 Constitutional - Awake and Alert, No apparent distress Eyes - PERRLA, EOMI Cardiovascular - S1S2, RRR, No edema Respiratory - Normal lung expansion, Normal respiratory effort, No respiratory distress, CTA bilaterally Gastrointestinal - NT / ND; +BS; No rebound or guarding Extremities - no calf tenderness bilaterally, no swelling Skin - Warm/Dry Neurological - Alert & oriented x3, CN II-XII in tact. No focal sensory or motor deficit Psychological - Appropriate affect DS: Data Data Completed and Pending Labs on day of discharge: Laboratory Results - last 24 hr 05/28/22 16:46 POC Glucose 93 Discharge Plan Discharge Anticipated Discharge Date/Time: 05/29/22 13:59 Patient Disposition: Home, Self-Care Discharge Diagnosis: benzodiazepine withdrawal seizure Referrals: Hadley Jc MD [Primary Care Provider] - 1 Week Trenton Spring MD [Physician] - 1 Week (Seen inpt for benzo withdrawal seizure. Needs outpt EEG per neuro) Discharge Medications: Continued ropinirole 0.5 mg tablet 0.5 mg PO BEDTIME 30 Days Qty: 30 3RF Rx Instructions: administer 1-3 hours before bedtime gabapentin 400 mg capsule 400 mg PO TID 30 Days Qty: 90 1RF doxepin 10 mg capsule 10 mg PO BEDTIME PRN (Reason: anxiety) 30 Days Qty: 30 1RF ondansetron 4 mg tablet,disintegrating 4 mg PO Q6-8H PRN (Reason: nausea and vomiting) Qty: 7 0RF lorazepam 2 mg tablet 2 mg PO BID (DME) compress.stocking,knee,reg,lrg Misc See Rx Instructions .Route Qty: 2 0RF Rx Instructions: As directed methadone 10 mg/mL concentrate 100 mg PO DAILY Rx Instructions: [facility] Discharge Orders: Discharge Order (Routine); Ordered 05/29/22 Ordered By: Jemima Del Cid Diet: Regular diet Activity on Discharge: As tolerated Stand Alone Forms: Patient Portal Discharge page Care Plan Goals: Take medications as prescribed without missing any doses. Follow up soon with PCP and psychiatrist. Health Concerns: Benzodiazepine withdrawal seziures Plan of Treatment: Take all of your medications exactly as prescribed without missing any dose. Benzodiazepine withdrawal can be fatal. Be sure to call in for refills in advance of when your prescription will run out. Do not stop any medication without first talking to your prescriber. Return to the ER immediately for any recurrent seizure activity. Follow up outpatient with neurology for and EEG study to rule out other possible causes of seziure activity, though again withdrawal is the most likely given your clinical picture and history of withdrawal seziures. Assessment: As above
== END 2022-05-29 15:00 | disposition home or self-care (01) | DRG 773 ==
LOC: HO.ED 12:02 → HO.EDOVER 15:37 → HO.IMC 05-29 13:43 → HO.EDOVER 05-29 14:14
PROVIDERS: Admitting Provider Physician Assistant; Emergency Provider Emergency Medicine Emergency Medical Services; PCP Internal Medicine; Visit Provider Physician Assistant
DX: F13.939 Sedative, hypnotic or anxiolytic use, unspecified with withdrawal, unspecified (principal); F11.20 Opioid dependence, uncomplicated; R56.9 Unspecified convulsions; F32.A Depression, unspecified; F41.9 Anxiety disorder, unspecified; T42.4X6A Underdosing of benzodiazepines, initial encounter; Z87.891 Personal history of nicotine dependence; Z20.822 Contact with and (suspected) exposure to COVID-19; Z88.5 Allergy status to narcotic agent; Z79.899 Other long term (current) drug therapy
CPT/HCPCS: 36415; 70450; 74177; 80048; 80076; 80307; 81003; 82077; 82947; 83690; 83735; 84702; 85025; 87635; 93005; 99285; J1650; J1953; J2250; J2405; Q9967

== ENCOUNTER 2022-06-16 12:37 | Emergency (ER) | payer OTHER, SELFPAY ==
[2022-06-16 12:43] VITALS: BP 125/90; BP 126/78; PULSE 97; PULSE 98; RESP 18; TEMP 37.1; O2SAT 96; O2SAT 97; BMI 24.2
--- NOTE | 2022-06-16 13:08 | ED.ANXIETY ---
HPI - Anxiety General Chief Complaint: Anxiety Stated Complaint: anxiety Time Seen by Provider: 06/16/22 13:06 Source: EMS Mode of arrival: EMS Limitations: no limitations History of Present Illness HPI narrative: 41 yo female of anxiety, depression here with complaints of feeling anxioysd Related Data Home Medications Medication Instructions Recorded Confirmed cholecalciferol (vitamin D3) 50 1 cap PO DAILY 06/16/22 06/16/22 mcg (2,000 unit) capsule doxepin 10 mg capsule 1 cap PO BEDTIME PRN anxiety 06/16/22 06/16/22 gabapentin 400 mg capsule 1 cap PO TID 06/16/22 06/16/22 loperamide 2 mg tablet 2 mg PO DIRECTED PRN Withdrawal 06/16/22 06/16/22 (Anti-Diarrheal (loperamide)) Symptoms lorazepam 2 mg tablet 2 mg PO BID PRN anxiety 06/16/22 06/16/22 multivitamin with folic acid 400 1 tab PO DAILY 06/16/22 06/16/22 mcg tablet (Daily-Kip (with folic acid)) nicotine 7 mg/24 hr daily 1 patch transdermal DAILY 06/16/22 06/16/22 transdermal patch ondansetron 4 mg disintegrating 1 tab PO Q6-8H PRN nausea/vomiting 06/16/22 06/16/22 tablet ropinirole 0.5 mg tablet 1 tab PO BEDTIME 06/16/22 06/16/22 tizanidine 4 mg tablet 1 tab PO TID PRN muscle spasm 06/16/22 06/16/22 vitamin B complex-folic acid 0.4 1 tab PO DAILY 06/16/22 06/16/22 mg tablet Allergies Allergy/AdvReac Type Severity Reaction Status Date / Time codeine Allergy Mild ITCHING Verified 03/18/22 16:43 [From Tylenol-Codeine #2] naloxone [From NARCAN] Allergy Unknown ITCHING, Verified 03/18/22 16:43 HIVES, THROAT CLOSES clonazepam AdvReac Mild headaches,d Verified 03/18/22 16:43 izziness Codeine Sulfate Allergy Unknown pruritus Uncoded 03/18/22 16:43 TUNA FISH Allergy Unknown UNKNOWN Uncoded 03/18/22 16:43 Review of Systems Review of Systems: Yes all other systems are reviewed and are negative Constitutional: Constitutional: Reports no additional constitutional complaints, Denies body ache(s), Denies chills, Denies fever(s), Denies headache(s) and Denies weakness Eyes: Eyes: Reports no additional eye complaints and Denies change in vision ENT: Reports system reviewed and no additional complaints, except as documented, Denies dizziness, Denies headache(s), Denies nasal congestion, Denies nasal discharge and Denies neck pain Cardiovascular: Cardiovascular: Reports no additional cardiovascular complaints, Denies chest pain, Denies leg edema and Denies dyspnea Respiratory: Respiratory: Reports no additional respiratory complaints, Denies cough and Denies dyspnea Gastrointestinal: Gastrointestinal: Reports no additional gastrointestinal complaints, Denies abdominal pain, Denies diarrhea, Denies nausea and Denies vomiting Genitourinary: Genitourinary: Reports no additional female genitourinary complaints and Denies urinary incontinence Musculoskeletal: Musculoskeletal: Reports no additional musculoskeletal complaints, Denies back pain, Denies arthralgias, Denies joint swelling, Denies neck pain, Denies numbness and Denies tingling Integumentary/Breasts: Skin/Breast: Reports system reviewed and no additional complaints, except as docu and Denies rash Neurologic: Reports system reviewed and no additional complaints, except as documented, Denies Abnormal speech present, Denies dizziness, Denies headache(s), Denies numbness, Denies tingling and Denies weakness Psychiatric: Psychiatric: Reports anxiety, Denies depression, Denies homicidal ideation and Denies suicidal ideation [facility] Past Medical History Attestation statement: The following information was validated with the patient. Source: old records reviewed and nursing notes reviewed Medical History Anxiety Cellulitis of left ankle Chronic pancreatitis Constipation Depression History of seizures History of substance abuse Insomnia Obesity (BMI 30-39.9) Overweight (BMI 25.0-29.9) Smoker Surgical History No pertinent past surgical history Family History Family History Father Hypertension Mother Medical history unknown Paternal Grandmother Lung cancer Paternal Grandfather Bone cancer Maternal Uncle Mouth cancer Social History Social History Housing: House Alcohol intake: unknown Patient Tobacco Use Status: Former Tobacco user Smoked in Last 30 Days: Yes e-Cigarette/Vaping Use: Never Used Second Hand Smoke Exposure: Yes Use of substances other than those prescribed or required for medical reasons: Unknown Substance Use Type: Unknown Patient : No service: No Current occupational status: unemployed Cognitive needs: No Hearing needs: No Vision needs: No Physical Exam Vital Signs: Vital Signs: Last Vital Signs Temp 98.7 F 06/16/22 12:43 Pulse 97 06/16/22 12:43 Resp 18 06/16/22 12:43 BP 125/90 H 06/16/22 12:43 Pulse Ox 96 06/16/22 12:43 O2 Del Method 06/16/22 12:43 BMI result Body Mass Index 24.2 Const: General: cooperative, healthy appearing, comfortable and no acute distress Orientation/consciousness: patient oriented x3 Limitations: no limitations HEENT: Head: Yes normal to inspection Ears: hearing grossly normal bilaterally General nose exam: Normal external nose present Face and sinus: Yes normal facial exam Mouth: Normal oral and palatal mucosa present Throat: Yes posterior oropharynx normal Eyes: General: appearance normal, both eyes and all related structures Pupils: Equal, round and reactive pupils present Neck: Neck: Yes normal visual inspection Chest: Chest palpation & inspection: normal inspection of the chest Resp: Effort & Inspection: normal respiratory effort Auscultation: clear to auscultation bilaterally Cardio: Rate: regular rate Rhythm: regular rhythm Peripheral pulses: Peripheral pulses 2+ throughout GI: Inspection: Yes normal to inspection Palpation (GI): Soft to palpation and nontender Auscultation: normal bowel sounds Back/Spine/Pelvis: Thoracic/Lumbar Spine: thoracic and lumbar spine normal to inspection Skin: General skin exam: no rashes or lesions noted Neuro: General: patient oriented x3, no focal motor deficits and normal sensation to monofilament Cranial nerves: Yes Equal, round and reactive pupils present Cognition (Neuro): normal cognition Speech: No Abnormal speech present Gait exam (Neuro): Normal gait present Motor exam (neuro): 5/5 motor strength present throughout Extrem: General: Yes normal to inspection, Yes no pedal edema and Yes no calf tenderness MDM - Anxiety Medical Records Attestation: I reviewed the patient's medical records. Lab Data Attestation: I reviewed the patient's lab results. Discharge Plan Discharge Prescriptions: No Action tizanidine 4 mg tablet 1 tab PO TID PRN (Reason: muscle spasm) gabapentin 400 mg capsule 1 cap PO TID loperamide [Anti-Diarrheal (loperamide)] 2 mg tablet 2 mg PO DIRECTED PRN (Reason: Withdrawal Symptoms) doxepin 10 mg capsule 1 cap PO BEDTIME PRN (Reason: anxiety) lorazepam 2 mg tablet 2 mg PO BID PRN (Reason: anxiety) ropinirole 0.5 mg tablet 1 tab PO BEDTIME ondansetron 4 mg tablet,disintegrating 1 tab PO Q6-8H PRN (Reason: nausea/vomiting) nicotine 7 mg/24 hr patch 24 hour 1 patch transdermal DAILY vitamin B complex-folic acid 0.4 mg tablet 1 tab PO DAILY cholecalciferol (vitamin D3) 50 mcg (2,000 unit) capsule 1 cap PO DAILY multivitamin with folic acid [Daily-Kip (with folic acid)] 400 mcg tablet 1 tab PO DAILY
[2022-06-16 13:28] LABS: MANUAL DIFF FLAG NO
[2022-06-16 13:31] LABS: Basophils Percent Auto 0.3 % (0-2); Eosinophils Percent Auto 0.3 % (0-4); Hematocrit 35.2 % (37.0-47.0); Hemoglobin 11.8 g/dl (12.0-16.0); Lymphocytes Percent Auto 23.8 % (20-40); Mean Corpuscular HGB Conc 33.5 g/dl (31.0-35.0); Mean Corpuscular Hemoglobin 28.9 pg (27.0-33.0); Mean Corpuscular Volume 86.1 fL (80.0-98.0); Mean Platelet Volume 11.7 fL (9.4-12.3); Monocytes Absolute Auto 0.2 X10*3/uL (0.1-1.2); Monocytes Percent Auto 4.5 % (2-11); Neutrophils Absolute Auto 2.8 x10*3/uL (2.0-8.3); Neutrophils Percent Auto 71.1 % (45-73); Platelet Count 184 X10*3/uL (160-400); Red Blood Count 4.09 X10*6/uL (4.20-5.50); Red Cell Distribution Width 12.4 % (11.0-16.0)
[2022-06-16 13:59] LABS: COVID-19 Test Negative (Negative); IDNOW Serial# 16C4AD1C
[2022-06-16 14:00] LABS: Alanine Aminotransferase 27 U/L (0-31); Albumin Level 4.3 g/dL (3.5-5.0); Alkaline Phosphatase 95 U/L (39-117); Anion Gap 17 (12-20); Aspartate Amino Transferase 20 U/L (5-31); Bilirubin Total < 0.2 mg/dL (0.0-1.0); Blood Urea Nitrogen 6 mg/dL (9-16); Calcium 9.1 mg/dL (8.4-10.2); Carbon Dioxide 23 mmol/L (22-29); Chloride 104 mmol/L (96-108); Creatinine Clr Calc Pharmacy 74.5; Estimated Glomerular Filt Rate > 60; Ethanol < 10 mg/dL; Glucose Random 111 mg/dL (60-115); Potassium 3.8 mmol/L (3.3-5.1); Sodium 140 mmol/L (135-145)
--- NOTE | 2022-06-16 14:01 | ED_ITS ---
HPI - Anxiety General Chief Complaint: Anxiety Stated Complaint: anxiety Time Seen by Provider: 06/16/22 13:06 Source: family Mode of arrival: EMS Limitations: altered mental status History of Present Illness HPI narrative: 41-year-old female with past medical history depression, anxiety, insomnia, smoker quit in 2019, gastritis secondary to alcohol, chronic pancreatitis, and a history of seizures related to substance withdrawals presents to the emergency department by EMS after ingesting eight 800 mg gabapentin this morning. She is unable to provide time the gabapentin was taken. Patient endorses feeling antsy, like [she] may have a seizure , and is complaining of chest tightness and trouble catching her breath. She also states after taking the gabapentin she had a headache and changes in vision which have resolved at this time. She states her last seizure was on 05/28/2022 which was attributed to benzodiazepine withdrawal, however; patient states that this seizure was due to ingestion of twelve 800 mg gabapentin. During my interview, she denies any SI or HI and endorses that she took the gabapentin to help with her anxiety and to help her ?feel good?. She is prescribed lorazepam 2 mg 2 times a day for anxiety which she did not take this morning. She also has take home doses of methadone, 100 mg per day, which she receives from her clinic every Friday with last dose this morning. MD complaint: anxiety, heart racing and shortness of breath Onset (ago): hour(s) Symptoms: dyspnea and chest pain Severity: moderate Quality: constant Place: home History of similar episodes: Yes Provoking factors: other (gabapentin) Relieving factors: nothing Exacerbating factors: medication Associated symptoms: chest pain, shortness of breath, confusion and headaches Related Data Home Medications Medication Instructions Recorded Confirmed cholecalciferol (vitamin D3) 50 1 cap PO DAILY 06/16/22 06/16/22 mcg (2,000 unit) capsule doxepin 10 mg capsule 1 cap PO BEDTIME PRN anxiety 06/16/22 06/16/22 gabapentin 400 mg capsule 1 cap PO TID 06/16/22 06/16/22 loperamide 2 mg tablet 2 mg PO DIRECTED PRN Withdrawal 06/16/22 06/16/22 (Anti-Diarrheal (loperamide)) Symptoms lorazepam 2 mg tablet 2 mg PO BID PRN anxiety 06/16/22 06/16/22 methadone 10 mg/mL oral syringe 100 mg PO DAILY 06/16/22 06/16/22 (FOR ORAL USE ONLY) multivitamin with folic acid 400 1 tab PO DAILY 06/16/22 06/16/22 mcg tablet (Daily-Kip (with folic acid)) nicotine 7 mg/24 hr daily 1 patch transdermal DAILY 06/16/22 06/16/22 transdermal patch ondansetron 4 mg disintegrating 1 tab PO Q6-8H PRN nausea/vomiting 06/16/22 06/16/22 tablet ropinirole 0.5 mg tablet 1 tab PO BEDTIME 06/16/22 06/16/22 tizanidine 4 mg tablet 1 tab PO TID PRN muscle spasm 06/16/22 06/16/22 vitamin B complex-folic acid 0.4 1 tab PO DAILY 06/16/22 06/16/22 mg tablet Allergies Allergy/AdvReac Type Severity Reaction Status Date / Time codeine Allergy Mild ITCHING Verified 03/18/22 16:43 [From Tylenol-Codeine #2] naloxone [From NARCAN] Allergy Unknown ITCHING, Verified 03/18/22 16:43 HIVES, THROAT CLOSES clonazepam AdvReac Mild headaches,d Verified 03/18/22 16:43 izziness Codeine Sulfate Allergy Unknown pruritus Uncoded 03/18/22 16:43 TUNA FISH Allergy Unknown UNKNOWN Uncoded 03/18/22 16:43 Review of Systems Review of Systems: Yes Other (ROS obtained from patient; unreliable with medical history) Constitutional: Constitutional: Reports no additional constitutional complaints, Denies chills, Denies difficulty sleeping, Denies excessive sweating, Denies fever(s), Reports headache(s) (resolved) and Denies poor appetite Eyes: Eyes: Reports no additional eye complaints, Reports blurry vision (resolved), Reports change in vision, Denies diplopia, Denies loss of peripheral vision and Denies other visual disturbances ENT: Reports system reviewed and no additional complaints, except as documented, Reports Normal hearing present, Denies dizziness and Reports headache(s) (resolved) Cardiovascular: Cardiovascular: Reports no additional cardiovascular complaints, Reports chest pain, Denies Epigastric Pain, Denies epigastric discomfort, Denies Loss of Consciousness and Reports dyspnea Respiratory: Respiratory: Reports no additional respiratory complaints, Denies cough, Denies pain on inspiration and Reports dyspnea Gastrointestinal: Gastrointestinal: Reports no additional gastrointestinal complaints, Denies abdominal pain, Denies change in stool character, Denies constipation, Denies diarrhea, Denies nausea and Denies vomiting Musculoskeletal: Musculoskeletal: Reports no additional musculoskeletal complaints, Denies numbness and Denies tingling Integumentary/Breasts: Skin/Breast: Reports system reviewed and no additional complaints, except as docu, Denies lesions, Denies rash and Denies sores Neurologic: Reports system reviewed and no additional complaints, except as documented, Reports Normal hearing present, Reports behavioral changes, Denies dizziness, Reports headache(s) (resolved), Denies numbness, Denies tingling and Denies tremor(s) Psychiatric: Psychiatric: Reports no additional psychiatric complaints, Reports anxiety, Reports behavioral changes, Denies change in appetite, Reports depression and Reports panic attacks Endocrine: Endocrine: Reports no additional endocrine complaints, Denies excessive sweating and Denies flushing PMFSH Past Medical History Attestation statement: The following information was validated with the patient. Source: old records reviewed and obtained from family Medical History Anxiety Cellulitis of left ankle Chronic pancreatitis Constipation Depression History of seizures History of substance abuse Insomnia Obesity (BMI 30-39.9) Overweight (BMI 25.0-29.9) Smoker Surgical History No pertinent past surgical history Family History Family History Father Hypertension Mother Medical history unknown Paternal Grandmother Lung cancer Paternal Grandfather Bone cancer Maternal Uncle Mouth cancer Social History Social History Housing: House Alcohol intake: unknown Patient Tobacco Use Status: Former Tobacco user Smoked in Last 30 Days: Yes e-Cigarette/Vaping Use: Never Used Second Hand Smoke Exposure: Yes Use of substances other than those prescribed or required for medical reasons: Unknown Substance Use Type: Unknown Advance Directives: No Advance Directives Information Provided: No Patient : No service: No Current occupational status: unemployed Cognitive needs: No Hearing needs: No Vision needs: No Physical Exam Vital Signs: Vital Signs: Last Vital Signs Temp 97.8 F 06/16/22 17:27 Pulse 86 06/16/22 17:27 Resp 19 06/16/22 17:27 BP 122/84 06/16/22 17:27 Pulse Ox 99 06/16/22 17:27 O2 Del Method 06/16/22 17:27 BMI result Body Mass Index 24.2 Const: General: cooperative, alert, awake, Physically active and anxious Nutritional Appearance: well nourished Orientation/consciousness: patient oriented x3 HEENT: Head: Yes normal to inspection, Yes normocephalic and Yes atraumatic Ears: hearing grossly normal bilaterally and external ears normal General nose exam: Normal external nose present and Normal nares present Face and sinus: Yes normal facial exam and Yes face symmetric Eyes: General: appearance normal, both eyes and all related structures Visual Kemp: normal visual kemp by confrontation Alignment and Position: alignment normal Periorbital: periorbital findings normal Eyelids: Yes eyelids normal Conjunctivae: conjunctivae normal Sclerae: sclerae normal Pupils: Equal, round and reactive pupils present EOM: EOMs intact bilaterally Neck: Neck: Yes normal visual inspection and Yes full ROM Chest: Chest palpation & inspection: normal inspection of the chest Resp: Effort & Inspection: normal respiratory effort, no cough and not labored Auscultation: clear to auscultation bilaterally, no crackles, no rhonchi and no wheezes Cardio: Rate: regular rate Rhythm: regular rhythm GI: Inspection: Yes normal to inspection Palpation (GI): Soft to palpation and nontender Auscultation: normal bowel sounds : General: Yes no CVA tenderness Back/Spine/Pelvis: Back: no CVA tenderness and No back tenderness Cervical Spine: cervical ROM normal Thoracic/Lumbar Spine: thoraco-lumbar ROM normal Skin: General skin exam: no rashes or lesions noted Neuro: General: patient oriented x3 Cranial nerves: Yes Equal, round and reactive pupils present, Yes Bilaterally intact EOM present, Yes Midline tongue present, Yes Normal hearing present, Yes Ability to bilaterally rotate head present and Yes Ability to bilaterally elevate shoulders present Cognition (Neuro): normal cognition Speech: Other speech findings present (Neuro) (hyperverbal) Gait exam (Neuro): Normal gait present Motor exam (neuro): 5/5 motor strength present throughout and no tremor noted Sensory Exam: Normal double simultaneous stimulation for sensation Extrem: General: Yes normal to inspection, Yes full ROM and Yes capillary refill normal Psych: Appearance: grossly normal Mental Status: mental status grossly normal Speech and movement: Clear speech present and Restless speech present Affect: Animated affect present Attitude: cooperative Thought process: Normal thought process present Thought content: suicidality and no homicidality Course Course Course Narrative: 1400: Diagnostics ordered. Blood work: CMP. Urine: CALDERÓN, , and culture. Covid swab ordered. 1415: EKG NSR. Poison control contacted regarding volume of gabapentin consumed and states that gabapentin should be metabolize of the system in 4-6 hours with recommendation to monitor patient for changes in status and to repeat EKG prior to discharge. 1430: Blood work unremarkable when compared to previous results. Urine negative for infection or . Toxicology positive for benzodiazepines otherwise negative for polysubstance. 1500: Consult to [facility] for crisis initiated. Pt medically cleared. 1515: Lorazepam 2 mg ordered given for anxiety. Crisis consult completed and patient cleared to be discharged according to psych perspective. 1730: Patient stable without any acute changes. EKG to be repeated. Medications Administered Discontinued Medications Generic Name Dose Route Start Last Admin Trade Name Ihsan PRN Reason Stop Dose Admin Acetaminophen 650 mg 06/16/22 17:28 06/16/22 17:33 Acetaminophen 325 Mg Tablet PO 06/16/22 17:29 650 mg ONCE ONE Administration Lorazepam 2 mg 06/16/22 15:21 06/16/22 15:51 Lorazepam 1 Mg Tablet PO 06/16/22 15:22 2 mg ONCE ONE Administration Ondansetron HCl 4 mg 06/16/22 17:30 06/16/22 17:33 Ondansetron Odt 4 Mg Tab.Rapdis TRANSLINGU 06/16/22 17:31 4 mg ONCE ONE Administration MDM - Anxiety MDM Narrative Medical decision making narrative: 41-year-old female presenting to the ED via EMS this after ingesting eight 800 mg Gabapentin tablets this morning, time of ingestion unknown. She reports anxiety, chest pressure, and shortness of breath. Poison control contacted regarding ingestion of gabapentin with recommendations to monitor lab work and complete an EKG prior to discharge. Per poison control customer retention representative no serial lab work needed. EKG completed and NSR without ectopy. Blood work reviewed and unremarkable compared to previous results. Toxicology positive for benzodiazepines with a known prescription for lorazepam. Negative for salicylates or acetaminophen. Negative for COVID-19. Urine negative for infection or . [facility] crisis consulted and patient deemed clear for discharge on a psych perspective. Patient continues to deny suicidal or homicidal ideations at this time. Education provided regarding medication safety and danger of overdosing on prescription medications, such as gabapentin. Educated that abuse of prescription may result in termination of prescription by prescribing physician. Educated to presents to the emergency department with worsening anxiety, suicidal or homicidal ideations, toxic ingestion of prescription medication or any other substances, and presents to the ED with any other emergent concerns. Recommended to follow-up with her primary care provider for further treatment and management. Medical Records Attestation: I reviewed the patient's medical records. Lab Data Attestation: I reviewed the patient's lab results. Result diagrams: 06/16/22 13:24 06/16/22 13:24 Labs: Lab Results 06/16/22 06/16/22 06/16/22 Range/Units 13:07 13:24 13:24 WBC 4.0 L (4.8-10.8) X10*3/uL RBC 4.09 L (4.20-5.50) X10*6/uL Hgb 11.8 L (12.0-16.0) g/dl Hct 35.2 L (37.0-47.0) % MCV 86.1 (80.0-98.0) fL MCH 28.9 (27.0-33.0) pg MCHC 33.5 (31.0-35.0) g/dl RDW 12.4 (11.0-16.0) % Plt Count 184 (160-400) X10*3/uL MPV 11.7 (9.4-12.3) fL Immature Gran % (Auto) 0.0 (0.0-0.4) % Neut % (Auto) 71.1 (45-73) % Lymph % (Auto) 23.8 (20-40) % [place] % (Auto) 4.5 (2-11) % Eos % (Auto) 0.3 (0-4) % Baso % (Auto) 0.3 (0-2) % Lymph # (Auto) 1.0 L (1.2-4.9) X10*3/uL [place] # (Auto) 0.2 (0.1-1.2) X10*3/uL Eos # (Auto) 0.0 (0.0-0.4) X10*3/uL Baso # (Auto) 0.0 (0.0-0.2) X10*3/uL Abs Immat Gran (auto) 0.00 (0.00-0.03) X10*3/uL Absolute Neuts (auto) 2.8 (2.0-8.3) x10*3/uL Absolute Nucleated RBC 0.000 (0.0-0.012) X10*3/uL Nucleated RBC % (auto) 0.0 (0.0-0.2) /100WBC Sodium 140 (135-145) mmol/L Potassium 3.8 (3.3-5.1) mmol/L Chloride 104 (96-108) mmol/L Carbon Dioxide 23 (22-29) mmol/L Anion Gap 17 (12-20) BUN 6 L (9-16) mg/dL Creatinine 0.92 (0.5-1.4) mg/dL Estim Creat Clear Calc 74.5 Estimated GFR > 60 Random Glucose 111 (60-115) mg/dL Calcium 9.1 (8.4-10.2) mg/dL Total Bilirubin < 0.2 (0.0-1.0) mg/dL AST 20 (5-31) U/L ALT 27 (0-31) U/L Alkaline Phosphatase 95 (39-117) U/L Troponin I High Sens (<3.5-17.0) ng/L Total Protein 7.0 (6.5-8.0) g/dL Albumin 4.3 (3.5-5.0) g/dL Urine Test (NEGATIVE) Salicylates < 5.0 L (15-30) mg/dL Urine Opiates Screen (Not Detect) Urine Fentanyl Screen (Not Detect) Acetaminophen 5 (<30) mcg/mL Ur Barbiturates Screen (Not Detect) Ur Phencyclidine Scrn (Not Detect) Ur Amphetamines Screen (Not Detect) U Benzodiazepines Scrn (Not Detect) Urine Cocaine Screen (Not Detect) U Marijuana (THC) Screen (Not Detect) Ethyl Alcohol < 10 mg/dL COVID-19 (IT[facility]) Negative (Negative) COVID-19 Clin Com See Note 06/16/22 06/16/22 06/16/22 Range/Units 13:24 14:10 14:10 WBC (4.8-10.8) X10*3/uL RBC (4.20-5.50) X10*6/uL Hgb (12.0-16.0) g/dl Hct (37.0-47.0) % MCV (80.0-98.0) fL MCH (27.0-33.0) pg MCHC (31.0-35.0) g/dl RDW (11.0-16.0) % Plt Count (160-400) X10*3/uL MPV (9.4-12.3) fL Immature Gran % (Auto) (0.0-0.4) % Neut % (Auto) (45-73) % Lymph % (Auto) (20-40) % [place] % (Auto) (2-11) % Eos % (Auto) (0-4) % Baso % (Auto) (0-2) % Lymph # (Auto) (1.2-4.9) X10*3/uL [place] # (Auto) (0.1-1.2) X10*3/uL Eos # (Auto) (0.0-0.4) X10*3/uL Baso # (Auto) (0.0-0.2) X10*3/uL Abs Immat Gran (auto) (0.00-0.03) X10*3/uL Absolute Neuts (auto) (2.0-8.3) x10*3/uL Absolute Nucleated RBC (0.0-0.012) X10*3/uL Nucleated RBC % (auto) (0.0-0.2) /100WBC Sodium (135-145) mmol/L Potassium (3.3-5.1) mmol/L Chloride (96-108) mmol/L Carbon Dioxide (22-29) mmol/L Anion Gap (12-20) BUN (9-16) mg/dL Creatinine (0.5-1.4) mg/dL Estim Creat Clear Calc Estimated GFR Random Glucose (60-115) mg/dL Calcium (8.4-10.2) mg/dL Total Bilirubin (0.0-1.0) mg/dL AST (5-31) U/L ALT (0-31) U/L Alkaline Phosphatase (39-117) U/L Troponin I High Sens < 3.5 (<3.5-17.0) ng/L Total Protein (6.5-8.0) g/dL Albumin (3.5-5.0) g/dL Urine Test NEGATIVE (NEGATIVE) Salicylates (15-30) mg/dL Urine Opiates Screen Not Detected (Not Detect) Urine Fentanyl Screen Not Detected (Not Detect) Acetaminophen (<30) mcg/mL Ur Barbiturates Screen Not Detected (Not Detect) Ur Phencyclidine Scrn Not Detected (Not Detect) Ur Amphetamines Screen Not Detected (Not Detect) U Benzodiazepines Scrn POSITIVE H (Not Detect) Urine Cocaine Screen Not Detected (Not Detect) U Marijuana (THC) Screen Not Detected (Not Detect) Ethyl Alcohol mg/dL COVID-19 (ITZ) (Negative) COVID-19 Clin Com ECG Data Attestation: I personally reviewed and interpreted this ECG as follows: (NSR) Interpretation: Test Reason : ANXIETY Blood Pressure : / mmHG Vent. Rate : 078 BPM ? ? Atrial Rate : 078 BPM ?? P-R Int : 180 ms? QRS Dur : 086 ms ? ? QT Int : 404 ms ? ? ? P-R-T Axes : 065 049 026 degrees ?? QTc Int : 460 ms ? Normal sinus rhythm Normal ECG When compared with ECG of 28-MAY-2022 08:55, ST no longer depressed in Anterior leads Nonspecific T wave abnormality, improved in Inferior leads Nonspecific T wave abnormality no longer evident in Anterolateral leads QT has lengthened ? Referred By: Brittany Huizar ? Electronically Signed By: Dictated By: Signed By: DD/ 16 TD/TT: 06/16/221421 [facility] Coordinator: Discharge Plan Discharge Clinical Impression: Overdose Patient Disposition: Home, Self-Care Instructions: Adult Overdose (ED) Prescriptions: No Action tizanidine 4 mg tablet 1 tab PO TID PRN (Reason: muscle spasm) gabapentin 400 mg capsule 1 cap PO TID loperamide [Anti-Diarrheal (loperamide)] 2 mg tablet 2 mg PO DIRECTED PRN (Reason: Withdrawal Symptoms) doxepin 10 mg capsule 1 cap PO BEDTIME PRN (Reason: anxiety) lorazepam 2 mg tablet 2 mg PO BID PRN (Reason: anxiety) ropinirole 0.5 mg tablet 1 tab PO BEDTIME ondansetron 4 mg tablet,disintegrating 1 tab PO Q6-8H PRN (Reason: nausea/vomiting) nicotine 7 mg/24 hr patch 24 hour 1 patch transdermal DAILY vitamin B complex-folic acid 0.4 mg tablet 1 tab PO DAILY cholecalciferol (vitamin D3) 50 mcg (2,000 unit) capsule 1 cap PO DAILY multivitamin with folic acid [Daily-Kip (with folic acid)] 400 mcg tablet 1 tab PO DAILY methadone 10 mg/mL Syringe 100 mg PO DAILY Referrals: Hadley Jc MD [Primary Care Provider] - Print Language: Setswana
--- NOTE | 2022-06-16 14:08 | ECG_ITS ---
Test Reason : ANXIETY Blood Pressure : / mmHG Vent. Rate : 078 BPM Atrial Rate : 078 BPM P-R Int : 180 ms QRS Dur : 086 ms QT Int : 404 ms P-R-T Axes : 065 049 026 degrees QTc Int : 460 ms Normal sinus rhythm Nonspecific ST abnormality Borderline ECG When compared with ECG of 28-MAY-2022 08:55, ST no longer depressed in Lateral leads Nonspecific T wave abnormality, improved in Inferior leads Nonspecific T wave abnormality no longer evident in Anterolateral leads QT has lengthened Referred By: Brittany Huizar Electronically Signed By:MOLLY BARR MD
[2022-06-16 14:19] LABS: Acetaminophen LAB 5 mcg/mL (<30); Salicylate < 5.0 mg/dL (15-30)
[2022-06-16 14:20] LABS: UPreg QC Valid YES; Urine Pregnancy NEGATIVE (NEGATIVE)
[2022-06-16 14:39] LABS: Amphetamine Screen Urine Not Detected (Not Detect); Barbiturates, Urine Not Detected (Not Detect); Benzodiazepines Screen Urine POSITIVE (Not Detect); Cannabinoid Screen Urine Not Detected (Not Detect); Cocaine Screen Urine Not Detected (Not Detect); Fentanyl, urine Not Detected (Not Detect); Opiate Screen Urine Not Detected (Not Detect); Phencyclidine Screen Urine Not Detected (Not Detect)
[2022-06-16 14:48] LABS: Troponin-I High Sensitivity < 3.5 ng/L (<3.5-17.0)
--- NOTE | 2022-06-16 15:17 | PC.NURSE ---
Addendum entered by Keila John 06/16/22 17:53: Provider notified of patient statements and concerns. Plan at this time is to repeat ekg. Addendum entered by Keila John 06/16/22 17:41: Pt supplied with coloring pages and crayons along with water. Per pt: I take 4 mg of ativan at a time at 6am and noon. I didn't take enough . Pt reports benzos are the only thing that assist with seizure control. Addendum entered by Keila John 06/16/22 17:25: Pt reporting increased anxiety regarding dispo and nausea after eating hospital turkey sandwich. Airway patent. Skin p/w/d. Denies CP/SOB/Diff breathing/Vomiting. vs obtained. Original Note: Contact made by poison control= Continue to watch for 4-6hrs, if she remains stable d/c is appropriate. Repeat EKG prior to dc
[2022-06-16] MEDS: LORazepam 1 MG TABLET 2 MG PO (15:51)
[2022-06-16 17:27] VITALS: BP 122/84; PULSE 86; RESP 19; TEMP 36.6; O2SAT 99
[2022-06-16] MEDS: Acetaminophen 325 MG TABLET 650 MG PO (17:33)
[2022-06-16] MEDS: Ondansetron ODT 4 MG TAB.RAPDIS TRANSLINGU (17:33)
--- NOTE | 2022-06-16 17:53 | ECG_ITS ---
Test Reason : MED CLEARANCE PER POISON CONTROL Blood Pressure : / mmHG Vent. Rate : 082 BPM Atrial Rate : 082 BPM P-R Int : 182 ms QRS Dur : 088 ms QT Int : 436 ms P-R-T Axes : 056 041 028 degrees QTc Int : 509 ms Normal sinus rhythm Nonspecific T wave abnormality Prolonged QT Abnormal ECG When compared with ECG of 16-JUN-2022 14:17, No significant change was found Referred By: Brittany Huizar Electronically Signed By:MOLLY BARR MD
--- NOTE | 2022-06-16 18:23 | PC.NURSE ---
Contact made by tia control Concerns regarding prolonged QTC from second ekg prior to d/c. MD notified of concerns. Plan at this time is to check old ekg for changes. Should there be concerns, pt will be contacted for further management.
== END 2022-06-16 18:29 | disposition home or self-care (01) ==
PROVIDERS: Emergency Provider Emergency Medicine; PCP Internal Medicine
DX: F41.9 Anxiety disorder, unspecified (principal); T43.601A Poisoning by unspecified psychostimulants, accidental (unintentional), initial encounter; Y92.9 Unspecified place or not applicable; R07.89 Other chest pain; R06.02 Shortness of breath; R51.9 Headache, unspecified; Z20.822 Contact with and (suspected) exposure to COVID-19; Z79.899 Other long term (current) drug therapy
CPT/HCPCS: 80053; 80143; 80179; 80307; 81025; 82077; 84484; 85025; 87635; 93005; 99285

== ENCOUNTER 2023-03-18 14:28 | Emergency (ER) | payer OTHER, SELFPAY ==
[2023-03-18 14:36] VITALS: BP 150/94; PULSE 106; O2SAT 95
[2023-03-18 14:39] VITALS: BP 134/72; PULSE 97; RESP 20; TEMP 36.3; O2SAT 97
--- NOTE | 2023-03-18 14:39 | ED.GENADULT ---
HPI - General Adult General Chief complaint: Extremity Problem Stated complaint: NEEDS MORE GABAPENTIN FOR RESTLESS LEG SYN PER EMS Time Seen by Provider: 03/18/23 20:50 Source: patient, RN notes reviewed and old records reviewed Mode of arrival: EMS Limitations: no limitations History of Present Illness HPI narrative: 42-year-old female with past medical history significant for anxiety, depression, restless leg syndrome presents for evaluation of I need my gabapentin. Patient reports that she is prescribed gabapentin 400 mg 3 times a day for her restless legs syndrome she reports that she has been taking more than she is prescribed because I have been asking my doctor to increase the and he refuses. she last filled a prescription of 90 tablets, 400 mg on 03/09/2023 she reports that she ran out 3 days ago patient then states that she receives a few gabapentin 900 mg tablets from my friend because that is all she had. Patient complains of a mild headache and restless legs. Related Data Home Medications Medication Instructions Recorded Confirmed methadone 10 mg/mL oral syringe 100 mg PO DAILY 06/16/22 06/16/22 (FOR ORAL USE ONLY) ondansetron 4 mg disintegrating 1 tab PO Q6-8H PRN nausea/vomiting 06/16/22 06/16/22 tablet vitamin B complex-folic acid 0.4 1 tab PO DAILY 06/16/22 06/16/22 mg tablet Previous Rx's Medication Instructions Recorded loperamide 2 mg tablet 2 mg PO .COMPLEX #60 tabs 07/23/22 nicotine 7 mg/24 hr daily 1 patch transdermal DAILY #28 ea 09/15/22 transdermal patch ropinirole 0.5 mg tablet 0.5 mg PO BEDTIME #30 tabs 12/11/22 cholecalciferol (vitamin D3) 50 50 mcg PO DAILY #90 caps 12/17/22 mcg (2,000 unit) capsule loperamide 2 mg tablet 2 mg PO DIRECTED PRN Withdrawal 12/17/22 (Anti-Diarrheal (loperamide)) Symptoms #30 tabs tizanidine 4 mg tablet 4 mg PO TID PRN for muscle spasm 01/15/23 #90 tabs ascorbic acid (vitamin C) 500 mg 500 mg PO DAILY 30 days #30 tabs 01/29/23 tablet doxepin 10 mg capsule 10 mg PO BEDTIME PRN for anxiety 01/29/23 #30 caps gabapentin 400 mg capsule 400 mg PO TID #90 caps 01/29/23 lorazepam 2 mg tablet 2 mg PO BID PRN anxiety 30 days 01/29/23 #60 tabs multivitamin with folic acid 400 1 tab PO DAILY #90 tabs 03/08/23 mcg tablet (Daily-Kip (with folic acid)) gabapentin 400 mg capsule 400 mg PO TID #21 caps 03/18/23 Allergies Allergy/AdvReac Type Severity Reaction Status Date / Time codeine Allergy Mild ITCHING Verified 03/18/22 16:43 [From Tylenol-Codeine #2] naloxone [From NARCAN] Allergy Unknown ITCHING, Verified 03/18/22 16:43 HIVES, THROAT CLOSES clonazepam AdvReac Mild headaches,d Verified 03/18/22 16:43 izziness Codeine Sulfate Allergy Unknown pruritus Uncoded 03/18/22 16:43 TUNA FISH Allergy Unknown UNKNOWN Uncoded 03/18/22 16:43 Review of Systems Constitutional: Constitutional: Denies chills, Denies fever(s) and Reports headache(s) ENT: Reports headache(s) Cardiovascular: Cardiovascular: Denies chest pain and Denies dyspnea Respiratory: Respiratory: Denies cough and Denies dyspnea Gastrointestinal: Gastrointestinal: Denies abdominal pain, Denies nausea and Denies vomiting Musculoskeletal: Musculoskeletal: Denies back pain Integumentary/Breasts: Skin/Breast: Denies rash Neurologic: Reports headache(s) and Denies tremor(s) Psychiatric: Psychiatric: Reports anxiety PMFSH Past Medical History Medical History Anxiety Cellulitis of left ankle Chronic pancreatitis Constipation Depression History of seizures History of substance abuse Insomnia Obesity (BMI 30-39.9) Overweight (BMI 25.0-29.9) Smoker Surgical History No pertinent past surgical history Family History Family History Father Hypertension Mother Medical history unknown Paternal Grandmother Lung cancer Paternal Grandfather Bone cancer Maternal Uncle Mouth cancer Social History Social History Housing: House Alcohol intake: former Patient Tobacco Use Status: Former Tobacco user Smoked in Last 30 Days: No e-Cigarette/Vaping Use: Never Used Second Hand Smoke Exposure: Yes Use of substances other than those prescribed or required for medical reasons: No Substance Use Type: Unknown Advance Directives: No Advance Directives Information Provided: Yes Patient : No service: No Current occupational status: unemployed Cognitive needs: No Hearing needs: No Vision needs: No Physical Exam ED Vital Signs: Vital Signs - 24 hr 03/18/23 14:39 03/18/23 21:23 Temperature 97.3 F 98.1 F Pulse Rate 97 62 Respiratory Rate 20 17 Blood Pressure 134/72 121/84 Pulse Oximetry 97 98 Oxygen Delivery Method Room Air Room Air BMI result Body Mass Index 30.0 Const General: healthy appearing, comfortable, no acute distress, alert and awake Nutritional Appearance: well nourished Orientation/consciousness: patient oriented x3 HENMT Head: Yes normocephalic and Yes atraumatic Eyes Eyelids: Yes eyelids normal Conjunctivae: conjunctivae normal Sclerae: sclerae normal Corneas: corneas normal Pupils: Equal, round and reactive pupils present EOM: EOMs intact bilaterally Neck Neck: Yes full ROM Resp Effort & Inspection: normal respiratory effort, able to speak in complete sentences, no audible wheezes and not labored Auscultation: clear to auscultation bilaterally Cardio Rate: regular rate Rhythm: regular rhythm Skin General skin exam: no rashes or lesions noted and elasticity normal Neuro General: patient oriented x3 Cranial nerves: Yes CN's II-XII intact bilaterally, Yes Equal, round and reactive pupils present and Yes Bilaterally intact EOM present Cognition (Neuro): normal cognition Extrem Other: Moving all extremities well without any obvious deformities Course Course Course Narrative: This is a rapid medical exam: Additional HPI, ROS, PE not included below will be deferred to primary provider. Patient is a 42-year-old female presenting to the emergency department with complaint of restless legs, leg pain, states she is prescribed gabapentin for this. States she has asked her PCP to increase her dose, but they have not. She is prescribed 300mg four times daily. States she took all of the gabapentin she was prescribed and also took some 900mg gabapentins that a friend gave her. She is hyperverbal and anxious in triage. Review of MANAGER HRIS shows patient filled a prescription for 90 caps of 400mg gabapentin on 03/18/23 and patient states she took additional gabapentin from a friend on top of that. Reevaluation(s) Reevaluation #1: discussed with pharmacist, Giuliana at [facility] on [address] in [place], [place]. she expressed her concern at the patient's recent prescription of 90 pills on 03/09/2023. I did inform her that I was aware the patient had this prescription and was taking the medications more than prescribed. explained that given the high dose of gabapentin the patient was on, I had agreed to prescribe a short course to prevent gabapentin withdrawals while the patient was discussing her next option with the PCP and that I had explained the patient I would not prescribe any further gabapentin from this ER. The pharmacist reported that she only felt comfortable giving the patient 3 additional tablets for a 1 day supply the patient can then follow up with her PCP which I felt was appropriate at this time. Time: 00:05 Medications Administered Discontinued Medications Generic Name Dose Route Start Last Admin Trade Name Ihsan PRN Reason Stop Dose Admin Acetaminophen 650 mg 03/18/23 21:18 03/18/23 21:51 Acetaminophen 325 Mg Tablet PO 03/18/23 21:19 650 mg ONCE ONE Administration Gabapentin 400 mg 03/18/23 21:18 03/18/23 21:52 Gabapentin 400 Mg Capsule PO 03/18/23 21:19 400 mg ONCE ONE Administration Medical Decision Making Medical Decision Making MDM Narrative: Patient is very anxious. Patient was strongly advised not to take gabapentin more than prescribed. She does not have any signs of withdrawal symptoms at this time. I advised her to take gabapentin 400 mg t.i.d. only and do not change from every 8 hours. she will follow-up with her primary doctor for further refills. patient has no neuro deficits. She does not have any visible tremors or restless legs during conversation either. Differential Diagnosis Differential Diagnoses: The differential diagnosis associated with the presentation includes Restless leg syndrome Anxiety Medication noncompliance gabapentin withdrawals Discharge Plan Discharge Clinical Impression: Restless leg syndrome, Anxiety Patient Disposition: Home, Self-Care Instructions: Restless Legs Syndrome (ED) Additional Instructions: take your gabapentin only as prescribed. do not take it more than 400 mg every 8 hours follow-up with your primary doctor for further refills Prescriptions: New gabapentin 400 mg capsule 400 mg PO TID Qty: 21 0RF No Action loperamide 2 mg tablet 2 mg PO .COMPLEX Qty: 60 0RF Rx Instructions: Take 2 tabs by mouth X 1; then, 1 tab by mouth after each loose stool. Max of 16 mg/day. nicotine 7 mg/24 hr patch 24 hour 1 patch transdermal DAILY Qty: 28 2RF ropinirole 0.5 mg tablet 0.5 mg PO BEDTIME Qty: 30 3RF cholecalciferol (vitamin D3) 50 mcg (2,000 unit) capsule 50 mcg PO DAILY Qty: 90 1RF loperamide [Anti-Diarrheal (loperamide)] 2 mg tablet 2 mg PO DIRECTED PRN (Reason: Withdrawal Symptoms) Qty: 30 0RF tizanidine 4 mg tablet 4 mg PO TID PRN (Reason: for muscle spasm) Qty: 90 0RF ascorbic acid (vitamin C) 500 mg tablet 500 mg PO DAILY 30 Days Qty: 30 1RF doxepin 10 mg capsule 10 mg PO BEDTIME PRN (Reason: for anxiety) Qty: 30 1RF lorazepam 2 mg tablet 2 mg PO BID PRN (Reason: anxiety) 30 Days Qty: 60 1RF gabapentin 400 mg capsule 400 mg PO TID Qty: 90 1RF multivitamin with folic acid [Daily-Kip (with folic acid)] 400 mcg tablet 1 tab PO DAILY Qty: 90 0RF ondansetron 4 mg tablet,disintegrating 1 tab PO Q6-8H PRN (Reason: nausea/vomiting) vitamin B complex-folic acid 0.4 mg tablet 1 tab PO DAILY methadone 10 mg/mL Syringe 100 mg PO DAILY Interventions: ED Discharge Assessment Last Done: 03/18/23 21:53 Discharge Date/Time: 03/18/23 21:55
[2023-03-18 21:23] VITALS: BP 121/84; PULSE 62; RESP 17; TEMP 36.7; O2SAT 98
[2023-03-18] MEDS: Acetaminophen 325 MG TABLET 650 MG PO (21:51)
[2023-03-18] MEDS: Gabapentin 400 MG CAPSULE PO (21:52)
== END 2023-03-18 21:55 | disposition home or self-care (01) ==
PROVIDERS: Emergency Provider Emergency Medicine Emergency Medical Services; PCP Internal Medicine
DX: G25.81 Restless legs syndrome (principal); F41.1 Generalized anxiety disorder; F43.0 Acute stress reaction
CPT/HCPCS: 99283; 99284

== ENCOUNTER 2023-05-20 03:14 | Emergency (ER) | payer OTHER, SELFPAY ==
--- NOTE | ~2023-05-20 | CT_ITS ---
EXAMINATION: CT HEAD WITHOUT CONTRAST CLINICAL INFORMATION: Fall, head trauma COMPARISON: Prior brain CT of 05/28/2022 TECHNIQUE: Contiguous axial imaging was performed from the skull base to vertex without intravenous administration of contrast. This CT examination was performed using dose optimization techniques as appropriate, variously including the following: *Automated exposure control *Adjustment of mA and/or kV according to patient size (this includes techniques or standardized protocols for targeted exams where dose is matched to indication/reason for exam; i.e. extremities or head) *Use of iterative reconstruction technique DLP: 617 mGy-cm FINDINGS: The ventricles and sulci are normal in size and configuration. No acute hemorrhage, mass effect or shift is evident. Panda-white differentiation is maintained. In the posterior fossa, the brainstem, cerebellum and fourth ventricle image normally. The orbits and calvarium are intact. The paranasal sinuses and mastoid air cells are well pneumatized and clear. CT/CT head/brain wo IV con IMPRESSION: 1. Unremarkable noncontrast brain CT. No acute hemorrhage, fracture, mass effect or shift.
[2023-05-20 03:18] VITALS: BMI 22.7
[2023-05-20 03:26] VITALS: BP 117/83; PULSE 103; RESP 16; O2SAT 97
--- NOTE | 2023-05-20 03:32 | ED_ITS ---
HPI - Overdose General Chief Complaint: Overdose Stated Complaint: OD Time Seen by Provider: 05/20/23 03:16 Source: EMS and old records reviewed Mode of arrival: EMS Limitations: altered mental status History of Present Illness HPI Narrative: 42 yo female with PMH of seizures, substance abuse, gabapentin abuse, anemia, chronic pancreatitis here with c/o being found unresponsive by mom candelaria - EMS notes she was bagged x 30 seconds and woke up with 4mg IN narcan. The patient denies drug use I came here to sleep. She is uncooperative MD complaint: other (overdose) Onset (ago): unknown Timing confirmed by: family member Intent: unwilling to say How Overdose Was Discovered: other (family found patient) Treatments Prior to Arrival: narcan (4mg in narcan) Related Data Home Medications Medication Instructions Recorded Confirmed methadone 10 mg/mL oral syringe 100 mg PO DAILY 06/16/22 06/16/22 (FOR ORAL USE ONLY) ondansetron 4 mg disintegrating 1 tab PO Q6-8H PRN nausea/vomiting 06/16/22 06/16/22 tablet Previous Rx's Medication Instructions Recorded loperamide 2 mg tablet 2 mg PO .COMPLEX #60 tabs 07/23/22 cholecalciferol (vitamin D3) 50 50 mcg PO DAILY #90 caps 12/17/22 mcg (2,000 unit) capsule loperamide 2 mg tablet 2 mg PO DIRECTED PRN Withdrawal 12/17/22 (Anti-Diarrheal (loperamide)) Symptoms #30 tabs ascorbic acid (vitamin C) 500 mg 500 mg PO DAILY 30 days #30 tabs 01/29/23 tablet gabapentin 400 mg capsule 400 mg PO TID #21 caps 03/18/23 lorazepam 2 mg tablet 2 mg PO BID PRN anxiety 30 days 03/27/23 #60 tabs nicotine 7 mg/24 hr daily 1 patch transdermal DAILY #28 ea 04/02/23 transdermal patch vitamin B complex-folic acid 0.4 1 tab PO DAILY #90 tabs 04/02/23 mg tablet doxepin 10 mg capsule 10 mg PO BEDTIME PRN for anxiety 04/04/23 #30 caps ropinirole 0.5 mg tablet 0.5 mg PO BEDTIME #30 tabs 04/06/23 gabapentin 400 mg capsule 400 mg PO TID #90 caps 04/24/23 drospirenone 3 mg-ethinyl 1 tab PO DAILY #28 tabs 04/30/23 estradiol 0.02 mg tablet multivitamin with folic acid 400 1 tab PO DAILY #90 tabs 05/05/23 mcg tablet (Daily-Kip (with folic acid)) tizanidine 4 mg tablet 4 mg PO TID PRN for muscle spasm 05/05/23 #90 tabs Allergies Allergy/AdvReac Type Severity Reaction Status Date / Time codeine Allergy Mild ITCHING Verified 03/18/22 16:43 [From Tylenol-Codeine #2] naloxone [From NARCAN] Allergy Unknown ITCHING, Verified 03/18/22 16:43 HIVES, THROAT CLOSES clonazepam AdvReac Mild headaches,d Verified 03/18/22 16:43 izziness Codeine Sulfate Allergy Unknown pruritus Uncoded 03/18/22 16:43 TUNA FISH Allergy Unknown UNKNOWN Uncoded 03/18/22 16:43 Review of Systems 2 Review of Systems: ROS unable to be obtained due to altered mental status PMFSH Past Medical History Medical History Depression Obesity (BMI 30-39.9) Constipation Smoker Overweight (BMI 25.0-29.9) Cellulitis of left ankle History of seizures Chronic pancreatitis Insomnia History of substance abuse Anxiety Surgical History No pertinent past surgical history Family History Family History Father Hypertension Mother Medical history unknown Paternal Grandmother Lung cancer Paternal Grandfather Bone cancer Maternal Uncle Mouth cancer Social History Social History Housing: House Alcohol intake: former Patient Tobacco Use Status: Former Tobacco user e-Cigarette/Vaping Use: Never Used Second Hand Smoke Exposure: Yes Substance Use Type: Unknown Advance Directives: No Advance Directives Information Provided: Yes service: No Current occupational status: unemployed Cognitive needs: No Hearing needs: No Vision needs: No Physical Exam 2 Vital Signs: Vital Signs: Last Vital Signs Temp 98.0 F 05/20/23 06:57 Pulse 98 05/20/23 06:57 Resp 16 05/20/23 06:57 BP 127/77 05/20/23 06:57 Pulse Ox 99 05/20/23 06:57 O2 Del Method Room Air 05/20/23 06:57 BMI result Body Mass Index 22.7 Appearance: Somnolent and easily agitated she is uncooperative Oriented X2 mild acute distress. Eyes: Pupils equal, round and reactive to light. 5mm ENT: Pharynx normal. atraumatic Neck: Normal inspection. Neck supple. CVS: Normal heart rate and rhythm. Pulses normal. Respiratory: No respiratory distress. Breath sounds normal. Abdomen: Soft and nontender. Skin: Skin warm and dry. pale skin color. Normal skin turgor. Extremities: No lower extremity edema. No calf ttp Neuro: Oriented X 2 No motor deficit. No sensory deficit. Course Course Course Narrative: told RN that she took her pills after her boyfriend threatened to break up with her tried to get up out of bed and fell but no head strike or trauma reported she is unreliable CT head ordered Reevaluation(s) Reevaluation #1: refusing xrays and CT scan - made SI Statements in regards to attempt she wanted to take pills after a break up with boyfriend she now statse she is okay and she is not on drugs and gets take homes. she states she has no track singh, she now states she didn't say that and wants to just go home and that she can sign herself out AMA as she should have freedom of speech. She now states she is going to make a phone call to verify all of this. RN present. plan for her to see CARE team. will sign section 12 until CARE team sees patient. Reevaluation #2: Physician observation started at 638am. Patient placed in physician observation because the patient needed more time for CARE team to assess the need for psych admission. At the time observation was started the patient's vitals were stable, patient is alert and oriented but slightly agitated, Neuro: nonfocal, CV RRR, Lungs clear Medical Decision Making Medical Decision Making MDM Narrative: 42 yo female with PMH of seizures, substance abuse, gabapentin abuse, anemia, chronic pancreatitis here with c/o being found unresponsive then waking with narcan at this time she is uncooperative refusing to answer questions. I have ordered labs, EKG, I see no head trauma. She has hx of overdose in the past on benzos and gabapentin will monitor and assess until more awake. Differential Diagnosis Differential Diagnoses: The differential diagnosis associated with the presentation includes overdose, substance abuse Admission/Observation Consideration of admission/observation: Escalation of care including admission/observation considered observe until she is at her baseline Lab Data MDM Lab Attestation statement: I reviewed the patient's lab results. 05/20/23 05:14 05/20/23 05:14 Labs: Lab Results 05/20/23 Range/Units 05:14 WBC 4.3 L (4.8-10.8) X10*3/uL RBC 3.93 L (4.20-5.50) X10*6/uL Hgb 11.4 L (12.0-16.0) g/dl Hct 33.0 L (37.0-47.0) % MCV 84.0 (80.0-98.0) fL MCH 29.0 (27.0-33.0) pg MCHC 34.5 (31.0-35.0) g/dl RDW 12.3 (11.0-16.0) % Plt Count 153 L (160-400) X10*3/uL MPV 12.3 (9.4-12.3) fL Immature Gran % (Auto) 0.2 (0.0-0.4) % Neut % (Auto) 60.5 (45-73) % Lymph % (Auto) 28.8 (20-40) % Guadalupe % (Auto) 8.9 (2-11) % Eos % (Auto) 0.9 (0-4) % Baso % (Auto) 0.7 (0-2) % Lymph # (Auto) 1.2 (1.2-4.9) X10*3/uL [place]upe # (Auto) 0.4 (0.1-1.2) X10*3/uL Eos # (Auto) 0.0 (0.0-0.4) X10*3/uL Baso # (Auto) 0.0 (0.0-0.2) X10*3/uL Abs Immat Gran (auto) 0.01 (0.00-0.03) X10*3/uL Absolute Neuts (auto) 2.6 (2.0-8.3) x10*3/uL Absolute Nucleated RBC 0.000 (0.0-0.012) X10*3/uL Nucleated RBC % (auto) 0.0 (0.0-0.2) /100WBC Sodium 140 (135-145) mmol/L Potassium 3.5 (3.3-5.1) mmol/L Chloride 109 H (96-108) mmol/L Carbon Dioxide 20 L (22-29) mmol/L Anion Gap 15 (12-20) BUN 6 L (9-16) mg/dL Creatinine 0.80 (0.5-1.4) mg/dL Estim Creat Clear Calc 84.8 Estimated GFR > 60 Random Glucose 90 (60-115) mg/dL Calcium 9.0 (8.4-10.2) mg/dL Magnesium 1.9 (1.6-2.6) mg/dL Total Bilirubin 0.3 (0.0-1.0) mg/dL Direct Bilirubin 0.1 (0.0-0.5) mg/dL AST 26 (5-31) U/L ALT 18 (0-31) U/L Alkaline Phosphatase 87 (39-117) U/L Total Protein 6.7 (6.5-8.0) g/dL Albumin 3.7 (3.5-5.0) g/dL Beta HCG, Quant < 2 mIU/mL Salicylates < 5.0 L (15-30) mg/dL Acetaminophen < 17 (<30) mcg/mL Ethyl Alcohol < 10 mg/dL Independent Interpretation I performed an independent interpretation of an: EKG Independent Historian Clinical information obtained from an independent historian. History obtained from or confirmed by: EMS External Record Review External record reviewed: Inpatient record Discharge Plan Discharge Clinical Impression: Drug overdose Qualifiers: Encounter type: initial encounter Injury intent: undetermined intent Qualified Code(s): T50.904A - Poisoning by unspecified drugs, medicaments and biological substances, undetermined, initial encounter Patient Disposition: Still a Patient Prescriptions: No Action loperamide 2 mg tablet 2 mg PO .COMPLEX Qty: 60 0RF Rx Instructions: Take 2 tabs by mouth X 1; then, 1 tab by mouth after each loose stool. Max of 16 mg/day. cholecalciferol (vitamin D3) 50 mcg (2,000 unit) capsule 50 mcg PO DAILY Qty: 90 1RF loperamide [Anti-Diarrheal (loperamide)] 2 mg tablet 2 mg PO DIRECTED PRN (Reason: Withdrawal Symptoms) Qty: 30 0RF ascorbic acid (vitamin C) 500 mg tablet 500 mg PO DAILY 30 Days Qty: 30 1RF lorazepam 2 mg tablet 2 mg PO BID PRN (Reason: anxiety) 30 Days Qty: 60 1RF nicotine 7 mg/24 hr patch 24 hour 1 patch transdermal DAILY Qty: 28 2RF vitamin B complex-folic acid 0.4 mg tablet 1 tab PO DAILY Qty: 90 3RF doxepin 10 mg capsule 10 mg PO BEDTIME PRN (Reason: for anxiety) Qty: 30 1RF ropinirole 0.5 mg tablet 0.5 mg PO BEDTIME Qty: 30 3RF gabapentin 400 mg capsule 400 mg PO TID Qty: 90 0RF drospirenone-ethinyl estradiol 3-0.02 mg tablet 1 tab PO DAILY Qty: 28 0RF tizanidine 4 mg tablet 4 mg PO TID PRN (Reason: for muscle spasm) Qty: 90 0RF multivitamin with folic acid [Daily-Kip (with folic acid)] 400 mcg tablet 1 tab PO DAILY Qty: 90 3RF ondansetron 4 mg tablet,disintegrating 1 tab PO Q6-8H PRN (Reason: nausea/vomiting) methadone 10 mg/mL Syringe 100 mg PO DAILY gabapentin 400 mg capsule 400 mg PO TID Qty: 21 0RF
--- NOTE | 2023-05-20 03:51 | PC.NURSE ---
Attempted blood draw and EKG pt refused
[2023-05-20 05:18] LABS: Basophils Percent Auto 0.7 % (0-2); Eosinophils Percent Auto 0.9 % (0-4); Hemoglobin 11.4 g/dl (12.0-16.0); Imm Gran Abs Auto 0.01 X10*3/uL (0.00-0.03); Imm Gran Pct Auto 0.2 % (0.0-0.4); Lymphocytes Absolute Auto 1.2 X10*3/uL (1.2-4.9); Lymphocytes Percent Auto 28.8 % (20-40); MANUAL DIFF FLAG NO; Mean Corpuscular HGB Conc 34.5 g/dl (31.0-35.0); Mean Platelet Volume 12.3 fL (9.4-12.3); Monocytes Absolute Auto 0.4 X10*3/uL (0.1-1.2); Monocytes Percent Auto 8.9 % (2-11); Neutrophils Absolute Auto 2.6 x10*3/uL (2.0-8.3); Neutrophils Percent Auto 60.5 % (45-73); Platelet Count 153 X10*3/uL (160-400); Red Blood Count 3.93 X10*6/uL (4.20-5.50); Red Cell Distribution Width 12.3 % (11.0-16.0); White Blood Count 4.3 X10*3/uL (4.8-10.8)
--- NOTE | 2023-05-20 05:20 | PC.NURSE ---
this rn assumed care of pt from room ed 4 @ 0440. upon assuming care of pt sleeping positioned on r side. 1:[address] pt placed on cardiac and spo2 monitors. blood work obtained and sent down to lab
[2023-05-20 05:40] LABS: Alanine Aminotransferase 18 U/L (0-31); Albumin Level 3.7 g/dL (3.5-5.0); Alkaline Phosphatase 87 U/L (39-117); Anion Gap 15 (12-20); Aspartate Amino Transferase 26 U/L (5-31); Bilirubin Direct 0.1 mg/dL (0.0-0.5); Bilirubin Total 0.3 mg/dL (0.0-1.0); Blood Urea Nitrogen 6 mg/dL (9-16); Carbon Dioxide 20 mmol/L (22-29); Chloride 109 mmol/L (96-108); Creatinine Clr Calc Pharmacy 84.8; Estimated Glomerular Filt Rate > 60; Ethanol < 10 mg/dL; Glucose Random 90 mg/dL (60-115); HCG Quantitative < 2 mIU/mL; Magnesium 1.9 mg/dL (1.6-2.6); Potassium 3.5 mmol/L (3.3-5.1); Sodium 140 mmol/L (135-145); Total Protein 6.7 g/dL (6.5-8.0)
[2023-05-20 05:44] LABS: Acetaminophen LAB < 17 mcg/mL (<30); Salicylate < 5.0 mg/dL (15-30)
--- NOTE | 2023-05-20 05:53 | PC.NURSE ---
Patient arrived via EMS. Triage by Clinical Coordinator. Pt reportedly overdosed on unknown medication. PT received narcan in the field by EMS- 4mg with positive effect. This RN attempted to get vitals, labs work down and EKG but PT refused and was moving making it difficult as PT pulled off monitor and clothing. Pt reported to this RN that she took pills and had coke because her boyfriend was going to break up with her. PT refused to answer if she was currently experiencing SI/HI. Provider made aware of reports and inability to get orders at this time. Pt placed on manager monitoring successfully. At 0345 Patient was heard screaming from her room help me, I fell on the floor . Upon entering the room, PT was found sitting up on her bottom at the end of the bed yelling that she fell. Side rails to stretcher were noted to be up, and bed in lowest locked position and Pt was in room closet to the nurses station. Pt assessed for any injuries and LOC- none noted. Pt denied any injuries, headstrike or LOC. PT was able to ambulate back to bed independently. Provider notified. CT scan ordered, Pt on 1:1 and video monitoring initiated
--- NOTE | 2023-05-20 05:59 | PC.NURSE ---
Provider declined notifying poison control as PT was not able to provide information regarding what pills she infact ingested
[2023-05-20 06:57] VITALS: BP 127/77; PULSE 98; RESP 16; TEMP 36.7; O2SAT 99
--- NOTE | 2023-05-20 07:03 | PC.NURSE ---
pt woke up stating wants to go home, dr lee and this rn to bedside. pt denies making SI statements. pt agitated though not aggressive. pt states will sign out against medical advice. dr lee made pt aware unable to do that after making previous SI statements must be seen by careteam prior to being put up for discharge. pt verbalized frustration that em[place] [facility], credit charge authorizer assisted this rn in redirecting. pt able to provide urine sample, pt down to ct at this time
[2023-05-20 07:08] LABS: Amphetamine Screen Urine POSITIVE (Not Detect); Barbiturates, Urine Not Detected (Not Detect); Benzodiazepines Screen Urine POSITIVE (Not Detect); Cannabinoid Screen Urine Not Detected (Not Detect); Cocaine Screen Urine Not Detected (Not Detect); Fentanyl, urine POSITIVE (Not Detect); Opiate Screen Urine Not Detected (Not Detect); Phencyclidine Screen Urine Not Detected (Not Detect)
--- NOTE | 2023-05-20 07:55 | PC.NURSE ---
assumed care of this pt at 0700. pt awake, tearfully asking to go home. she denies pain, denies SI/HI. states that she feels safer at home than here. 1:1 staff at her bedside. awaiting Care Team consult.
[2023-05-20 08:19] VITALS: BP 126/75; PULSE 98; RESP 18; TEMP 36.6; O2SAT 96
[2023-05-20] MEDS: Gabapentin 400 MG CAPSULE PO (09:28)
--- NOTE | 2023-05-21 12:38 | HO.SUDE ---
See CARE Team assessment.
== END 2023-05-20 13:19 | disposition home or self-care (01) ==
PROVIDERS: Emergency Provider Emergency Medicine
DX: F19.10 Other psychoactive substance abuse, uncomplicated (principal); T50.904A Poisoning by unspecified drugs, medicaments and biological substances, undetermined, initial encounter; R40.0 Somnolence; R45.1 Restlessness and agitation; Y92.9 Unspecified place or not applicable; D64.9 Anemia, unspecified; Z87.891 Personal history of nicotine dependence; Z79.899 Other long term (current) drug therapy
CPT/HCPCS: 36415; 70450; 80048; 80076; 80143; 80179; 80307; 83735; 84702; 85025; 99284; S9485

== ENCOUNTER 2023-08-28 08:52 | Outpatient (AMB) | payer OTHER, SELFPAY ==
--- NOTE | 2023-08-28 08:52 | A.OFFPC_ITS ---
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 Accompanied by: Self / Same As Patient Allergies codeine [From Tylenol-Codeine #2] Allergy (Mild, Verified 08/28/23 09:17) ITCHING naloxone [From NARCAN] Allergy (Unknown, Verified 08/28/23 09:17) ITCHING, HIVES, THROAT CLOSES Codeine Sulfate Allergy (Unknown, Uncoded 08/28/23 09:17) pruritus TUNA FISH Allergy (Unknown, Uncoded 08/28/23 09:17) UNKNOWN Medication List - Last Reconciled 08/28/23 by Hadley Jc MD ascorbic acid (vitamin C) 500 mg PO DAILY 30 days doxepin 10 mg PO BEDTIME PRN drospirenone-ethinyl estradiol 3-0.02 mg 1 tab PO DAILY gabapentin 400 mg PO TID lactulose 20 grams (30 mL) PO BID PRN 15 days loperamide (Anti-Diarrheal (loperamide)) 2 mg PO DIRECTED PRN lorazepam 2 mg PO BID PRN 30 days methadone 100 mg PO DAILY multivitamin with folic acid 400 mcg (Daily-Kip (with folic acid)) 1 tab PO DAILY nicotine (polacrilex) (Nicorette) 4 mg buccal Q2H PRN 30 days ropinirole 0.5 mg PO BEDTIME Tobacco use date assessed: 08/28/23 Dental Screening Dental Screen Date: 08/28/23 Did you have a dental visit in the last 12 months?: No Did you have a dental problem in the last 6 months where you did not have access to dental care?: No Was dental information given to patient?: No HPI Covid + HPI Details Patient's follow-up visit / consultation today is done over the phone - this is a Telehealth visit Patient's current medications have been reviewed and verified with patient and / or caregiver / proxy and have been updated accordingly in the medication list States that she has been experiencing symptoms of sore throat, fatigue and some cough and congestion for the past couple of days States that she coughs up some clear to whitish phlegm at times but denies any SOB She ended testing herself for COVID with a home test kit last night and it came back positive She feels slightly flushed at times recently; denies any chills Denies any chest pains No nausea/vomiting, no abdominal pain No change in bowel habits noted Adds that she has been feeling very anxious and stressed recently with her mother's passing away last week and is requesting for a refill on her Lorazepam PFS Medical History Depression Obesity (BMI 30-39.9) Constipation Smoker Overweight (BMI 25.0-29.9) Cellulitis of left ankle History of seizures Chronic pancreatitis Insomnia History of substance abuse Anxiety Surgical History No pertinent past surgical history Family History Father Hypertension Mother Medical history unknown Paternal Grandmother Lung cancer Paternal Grandfather Bone cancer Maternal Uncle Mouth cancer Social History Housing: House Alcohol intake: former Patient Tobacco Use Status: Former Tobacco user e-Cigarette/Vaping Use: Never Used Second Hand Smoke Exposure: Yes Substance Use Type: Unknown service: No Current occupational status: unemployed Cognitive needs: No Hearing needs: No Vision needs: No Questionnaire PHQ-9 Over the last 2 weeks, how often have you been bothered by any of the following problems? 1. Little interest or pleasure in doing things: not at all 2. Feeling down, depressed, or hopeless: not at all 3. Trouble falling or staying asleep, or sleeping too much: not at all 4. Feeling tired or having little energy: not at all 5. Poor appetite or overeating: not at all 6. Feeling bad about yourself - or that you are a failure or have let yourself or your family down: not at all 7. Trouble concentrating on things, such as reading the newspaper or watching television: not at all 8. Moving or speaking so slowly that other people could have noticed. Or the opposite - being so fidgety or restless that you have been moving around a lot more than usual: not at all 9. Thoughts that you would be better off or of hurting yourself in some way: not at all Total score: 0 Depression Screening Interpretation: Negative Depression Screening Done: Yes 89923 - PHQ-9 Billing: Yes Source: Developed by Drs. Fernando Verduzco, Lucas Mccormick and colleagues, with an educational jonah from [employer]. Thrive Questionnaire Date Thrive assessed: 08/28/23 I am a: Patient What is your living situation today?: I have a steady place to live Within the past 12 months, did the food you bought not last and you didn't have the money to get more?: Never true Within the past 12 months, did you worry whether your food would run out before you got money to buy more?: Never true Do you have trouble paying for medicines?: No Do you have trouble getting transportation to medical appointments?: No Do you have trouble paying your heating and electricity bill?: No Do you have trouble taking care of your child, family member or friend?: No Do you have trouble with day-to-day activities such as bathing, preparing meals, shopping, managing finances, etc.?: No Are you currently unemployed and looking for a job?: No Are you interested in more education?: No Please select the resources that you would like help with: None Currently or been in a relationship where the following occur: no concerns reported THRIVE Score: 0 AUDIT C Alcohol Use Questionnaire (AUDIT-C) 1. How often do you have a drink containing alcohol?: Never 3. How often do you have six or more drinks on one occasion?: Never Total Score: 0 Score Reviewed/Action Taken: Yes ROHINI-7 AMB Questionnaire ROHINI-7 Date ROHINI - 7 assessed: 08/28/23 Feeling nervous, anxious, or on edge: 3 = Nearly every day Not being able to stop or control worryin = Nearly every day Worrying too much about different things: 3 = Nearly every day Trouble relaxin = Nearly every day Being so restless that it is hard to sit still: 3 = Nearly every day Becoming easily annoyed or irritable: 3 = Nearly every day Feeling afraid as if something awful might happen: 3 = Nearly every day Total ROHINI-7 score (0-4 normal; 5-9 mild; 10-14 moderate; 15-21 severe): 21 Source: Developed by Pamela Loredo Kurt Kroenke and colleagues, with an educational jonah from [employer] Review of Systems Const Denies chills, Reports fatigue, Denies fever(s) (but feels flushed at times) and Denies headache(s) ENT Denies dysphagia, Denies dizziness, Denies otalgia, Denies headache(s), Reports nasal congestion, Denies odynophagia and Reports sore throat (mild) Card Denies chest pain, Denies palpitations and Denies dyspnea Resp Reports chest congestion (mild), Reports cough (with clear to whitish phlegm), Denies dyspnea and Denies wheezing GI Denies abdominal pain, Denies constipation, Denies dysphagia, Denies heartburn, Denies diarrhea, Denies nausea, Denies odynophagia and Denies vomiting Denies nocturia, Denies dysuria and Denies urinary urgency Neuro Denies dizziness and Denies headache(s) Psych Reports anxiety Endo Reports fatigue and Denies palpitations Aller/Immun Denies wheezing Physical exam (Primary Care) Vital Signs: Physical examination is not performed as visit / consultation today is done over the phone - Telehealth visit All physical findings indicated here, if present, are as per patient's and / or caregivers / proxy's report Tobacco/Smoking Status: Tobacco use Status Tobacco use date assessed 08/28/23 08/28/23 08:59 Patient Tobacco Use Status Former Tobacco user 08/28/23 08:59 e-Cigarette/Vaping Use Never Used 08/28/23 08:59 PHQ-9: PHQ-9 Score PHQ-9: Total score 0 08/28/23 08:59 Depression Screening Interpretation: Negative Thrive Assessment: Date of Thrive Assessment Date Thrive assessed 08/28/23 08/28/23 08:59 Currently or been in a relationship where the following occur: no concerns reported Telehealth Telehealth Location of provider rendering services: practice address Location of patient: address on file Patient Identification confirmed using: Name, : Yes Telehealth method: voice only Patient verbally consented to treatment: Yes Patient verbally consented to billing insurance company: Yes Patient informed of any privacy concerns related to visit: Yes Minutes spent on Phone/Video with Pt.: 22 Assessment and Plan Assessment & Plan (1) COVID-19: Code(s): U07.1 - COVID-19 Plan: Will start patient on Paxlovid x 5 days Advised that she can also take OTC cough/cold meds PRN for symptomatic relief (2) Anxiety: Code(s): F41.9 - Anxiety disorder, unspecified Plan: Continue Clonazepam 1 mg BID PRN and Doxepin 10 mg Q HS; she is also still on Gabapentin 400 mg TID (for mood stabilizing) She is again requesting for some Lorazepam Rx, supposedly to help her with increased stress recently due to her mother passing away from cancer last week I have reminded patient that she was taken OFF Lorazepam last fall when she had a withdrawal seizure and since then, she has been maintained on Clonazepam by her psychiatric prescriber and have again reminded her in no uncertain terms that she CANNOT BE TAKING BOTH CLONAZEPAM and LORAZEPAM as both are benzodiazepine and she is again going back to her old habits of trying to get high on benzodiazepines, intentionally or unintentionally I will agree to give her only 1 week's worth of the Rx for Lorazepam to help her with her recent situation (she was called in 3 days' supply recently by the on- call MD) and that this WILL NOT be extended or refilled again She then proceeded to say that she does not think Clonazepam is helping her as well as it should and would like to switch back to Lorazepam I have advised her, as I have many times in the past, that she will need to discuss this with her psychiatrist and if they agree, then they can switch her over BUT that decision is NOT going to come from me Reminded patient again to follow up with her psychiatrist as scheduled (3) Restless legs syndrome (RLS): Code(s): G25.81 - Restless legs syndrome Plan: Continue Ropinirole 0.5 mg Q HS (4) History of substance abuse: Comment: To Oxycontin Code(s): F19.11 - Other psychoactive substance abuse, in remission Plan: Was on Methadone 180 mg QD previously but has been trying to come off Rx as quickly as possible (by choice) as she wants to try to conceive while she still can; previously came down to 42 mg daily but is now back up to 100 mg QD - to continue on Methadone at 100 mg QD Follow up with the Methadone clinic as scheduled (5) Chronic pancreatitis: Code(s): K86.1 - Other chronic pancreatitis Qualifiers: Pancreatitis type: unspecified pancreatitis type Qualified Code(s): K86.1 - Other chronic pancreatitis Plan: Stable; patient currently remains asymptomatic and states that she has not had any recurrence of abdominal pains lately (6) Constipation: Code(s): K59.00 - Constipation, unspecified Qualifiers: Constipation type: other constipation type Qualified Code(s): K59.09 - Other constipation Plan: Advised again that this is most likely due to the effects of her Methadone Reinforced increased oral fluids and dietary fiber Continue Miralax 17 gm QD (7) Insomnia: Code(s): G47.00 - Insomnia, unspecified Qualifiers: Insomnia type: unspecified Qualified Code(s): G47.00 - Insomnia, unspecified Plan: Sleep hygiene reinforced Continue Doxepin 10 mg Q HS; was on Amitriptyline 50 mg Q HS previously but she stopped taking the Rx as it was reportedly making her feel dizzy (8) Depression: Code(s): F32.A - Depression, unspecified Qualifiers: Depression Type: major depressive disorder Major depression recurrence: recurrent Active/Remission status: currently active Major depression episode severity: unspecified Qualified Code(s): F33.9 - Major depressive disorder, recurrent, unspecified Plan: Was on Sertraline 50 mg QD and Bupropion XL 75 mg QD but patient inexplicably stopped taking these on her own Am unclear at this time what psychiatry has her on for her mood disorder other than Gabapentin and Clonazepam Follow up with psychiatry as scheduled Plan Follow up in 4 months Medications: New nirmatrelvir-ritonavir 300 mg (150 mg x 2)-100 mg (Paxlovid) take TWO 150 mg tablets of nirmatrelvir with ONE 100 mg tablet of ritonavir twice daily for 5 days PO 30 ea 0RF Changed From lorazepam 2 mg PO BID 30 days PRN 60 tabs 1RF anxiety To lorazepam 2 mg PO BID 7 days 14 tabs 0RF anxiety Coding Level of Care Code Est Pt Level 4 (21004) Diagnoses COVID-19 U07.1 Anxiety F41.9 Restless legs syndrome (RLS) G25.81 History of substance abuse F19.11 Chronic pancreatitis, unspecified pancreatitis type K86.1 Pancreatitis type: unspecified pancreatitis type Other constipation K59.09 Constipation type: other constipation type Insomnia, unspecified type G47.00 Insomnia type: unspecified Episode of recurrent major depressive disorder, unspecified depression episode severity F33.9 Depression Type: major depressive disorder Major depression recurrence: recurrent Active/Remission status: currently active Major depression episode severity: unspecified
== END 2023-08-28 09:56 | disposition home or self-care (01) ==
LOC: HO.HMGH 08:52
PROVIDERS: Visit Provider Internal Medicine
DX: U07.1 COVID-19 (principal); F19.11 Other psychoactive substance abuse, in remission; F33.9 Major depressive disorder, recurrent, unspecified; K86.1 Other chronic pancreatitis; Z87.891 Personal history of nicotine dependence; F41.9 Anxiety disorder, unspecified; G25.81 Restless legs syndrome; K59.09 Other constipation; G47.00 Insomnia, unspecified
CPT/HCPCS: 99214

== ENCOUNTER → 2024-02-11 13:53 | Outpatient (REF) | payer OTHER, SELFPAY ==
--- NOTE | 2024-02-11 14:07 | ECG_ITS ---
Test Reason : QTC CHECK Blood Pressure : / mmHG Vent. Rate : 069 BPM Atrial Rate : 069 BPM P-R Int : 160 ms QRS Dur : 084 ms QT Int : 464 ms P-R-T Axes : 062 047 016 degrees QTc Int : 497 ms Normal sinus rhythm Nonspecific T wave abnormality Abnormal ECG When compared with ECG of 16-JUN-2022 18:04, No significant change was found Referred By: Marcello Saucedo Electronically Signed By:SHERRY CARR
== END ==
LOC: HO.CARD 13:53
PROVIDERS: PCP Internal Medicine; Visit Provider Internal Medicine
DX: Z79.899 Other long term (current) drug therapy (principal)
CPT/HCPCS: 93005

== ENCOUNTER → 2024-02-11 14:07 | Outpatient (BNV) | payer OTHER, SELFPAY | PROVIDERS: PCP Internal Medicine; Visit Provider Internal Medicine | DX: I45.81 Long QT syndrome (principal) | CPT/HCPCS: 93010 ==

== ENCOUNTER 2024-02-20 12:40 | Outpatient (AMB) | payer OTHER, SELFPAY ==
--- NOTE | 2024-02-20 12:48 | MHC.PC.OV ---
Vital Signs 02/20/24 12:52 Height 5 ft 6 in Weight 155 lb 8 oz BMI 25.1 BP 100/70 Blood Pressure Location Lt brachial Position Sitting Pulse 63 Pulse Source Pulse Oximeter Pulse Oximetry (%) 95 Oxygen Delivery Method Room Air Intake Visit Reasons: RLS, mood disorder, Hx of substance abuse Allergies codeine [From Tylenol-Codeine #2] Allergy (Mild, Verified 02/20/24 13:05) ITCHING naloxone [From NARCAN] Allergy (Unknown, Verified 02/20/24 13:05) ITCHING, HIVES, THROAT CLOSES Codeine Sulfate Allergy (Unknown, Uncoded 02/20/24 13:05) pruritus TUNA FISH Allergy (Unknown, Uncoded 02/20/24 13:05) UNKNOWN Medication List - Last Reconciled 02/20/24 by Hadley Jc MD ascorbic acid (vitamin C) 500 mg PO DAILY 30 days clonazepam 1 mg PO BID PRN doxepin 25 mg PO BEDTIME PRN drospirenone-ethinyl estradiol 3-0.02 mg 1 tab PO DAILY gabapentin 400 mg PO TID 30 days lactulose 20 grams (30 mL) PO BID PRN 15 days loperamide (Anti-Diarrheal (loperamide)) 2 mg PO DIRECTED PRN methadone 180 mg PO DAILY multivitamin with folic acid 400 mcg (Daily-Kip (with folic acid)) 1 tab PO DAILY nicotine (polacrilex) (Nicorette) 4 mg buccal Q2H PRN 30 days psyllium husk (Metamucil) 1 tbsp PO DAILY ropinirole 0.5 mg PO BEDTIME Tobacco use date assessed: 08/28/23 Dental Screening Dental Screen Date: 08/28/23 HPI RLS, mood disorder, Hx of substance abuse HPI Details Patient comes in today for her follow up visit - she was last seen here in-person over 2 years ago in December 2019 States that she is currently still experiencing a lot of anxiety but is doing well otherwise She is now seeing psychiatry and they are the ones presently managing her anxiety issues - she is supposedly now on Clonazepam 1 mg BID PRN States that she is also currently being prescribed 2 other medications for her anxiety but she cannot recall their names at this time - thinks one of them is Sertraline and the other one starts with a T but she cannot be sure States that she will call back with their names when she gets home and find out what her meds are She is presently also on Methadone at 180 mg daily dose and states that her Methadone clinic is allowing her to take home 2 weeks' worth of her medication at a time She denies any headaches or dizziness lately Denies any chest pains, no SOB No nausea/vomiting, no abdominal pain No change in bowel habits noted - she is still experiencing frequent constipation (most likely due to her methadone) and would like to go back on her Miralax as she recalls that it worked very well for her in the past [facility] Medical History Depression Obesity (BMI 30-39.9) Constipation Smoker Overweight (BMI 25.0-29.9) Cellulitis of left ankle History of seizures Chronic pancreatitis Insomnia History of substance abuse Anxiety Surgical History No pertinent past surgical history Family History Father Hypertension Mother Medical history unknown Paternal Grandmother Lung cancer Paternal Grandfather Bone cancer Maternal Uncle Mouth cancer Social History Housing: House Alcohol intake: former Patient Tobacco Use Status: Former Tobacco user e-Cigarette/Vaping Use: Never Used Second Hand Smoke Exposure: Yes Substance Use Type: Unknown service: No Current occupational status: unemployed Cognitive needs: No Hearing needs: No Vision needs: No Questionnaire Thrive Questionnaire Date Thrive assessed: 08/28/23 ROHINI-7 AMB Questionnaire ROHINI-7 Date ROHINI - 7 assessed: 08/28/23 Source: Developed by Drs. Fernando Verduzco, Pamela Askew, Lucas Mcintosh and colleagues, with an educational jonah from [employer]. Review of Systems Const Denies chills, Reports fatigue, Denies fever(s) and Denies headache(s) ENT Denies dysphagia, Denies dizziness, Denies otalgia, Denies headache(s), Denies neck pain, Denies odynophagia and Denies sore throat Card Denies chest pain, Denies palpitations and Denies dyspnea Resp Denies chest congestion, Denies cough, Denies dyspnea and Denies wheezing GI Denies abdominal pain, Reports constipation (frequent), Denies dysphagia, Denies heartburn, Denies diarrhea, Denies nausea, Denies odynophagia and Denies vomiting Denies nocturia, Denies dysuria and Denies urinary urgency Musc Denies neck pain Skin/Breast Denies rash Neuro Denies dizziness and Denies headache(s) Psych Reports anxiety (increased) and Denies panic attacks Endo Reports fatigue and Denies palpitations Aller/Immun Denies wheezing Physical exam (Primary Care) Vital Signs: Last Vital Signs Pulse 63 02/20/24 12:52 BP 100/70 02/20/24 12:52 Pulse Ox 95 02/20/24 12:52 Oxygen Delivery Method Room Air 02/20/24 12:52 BMI result Body Mass Index 25.1 Tobacco/Smoking Status: Tobacco use Status Tobacco use date assessed 08/28/23 02/20/24 12:49 Patient Tobacco Use Status Former Tobacco user 02/20/24 12:49 e-Cigarette/Vaping Use Never Used 02/20/24 12:49 Thrive Assessment: Date of Thrive Assessment Date Thrive assessed 08/28/23 02/20/24 12:49 Const General: no acute distress and alert HENMT Ears: TM's normal bilaterally and EAC's normal Throat: Yes posterior oropharynx normal and Yes tonsils normal Neck Neck: Yes no lymphadenopathy and Yes supple Thyroid: Thyroid normal Resp Auscultation: clear to auscultation bilaterally, no rales and no wheezes Cardio Rate: regular rate Rhythm: regular rhythm Heart sounds: no murmurs GI Palpation (GI): Soft to palpation and nontender Auscultation: normal bowel sounds General: Yes no CVA tenderness Back/Spine/Pelvis Back: no CVA tenderness Skin Rashes: no rashes Extrem General: Yes no clubbing, cyanosis or edema Assessment and Plan Assessment & Plan (1) Anxiety: Code(s): F41.9 - Anxiety disorder, unspecified Plan: Continue Clonazepam 1 mg BID PRN and Doxepin 10 mg Q HS; she is also still on Gabapentin 400 mg TID (for mood stabilizing) She is now seeing psychiatry regularly for her anxiety and states that she is currently being prescribed 2 other medications for her anxiety but she cannot recall their names at this time - thinks one of them is Sertraline and the other one starts with a T but she cannot be sure States that she will call back with their names when she gets home and find out what her meds are She then started asking if there are any additional meds that I can prescribe for her that are non-habit forming - I have advised her that she should be letting her psychiatrist handle ALL issues related to her anxiety and I would rather not get involved in the process as I do not want to risk any overlap or interference in her anxiety management Follow up with psychiatry as scheduled (2) Restless legs syndrome (RLS): Code(s): G25.81 - Restless legs syndrome Plan: Continue Ropinirole 0.5 mg Q HS (3) History of substance abuse: Comment: To Oxycontin Code(s): F19.11 - Other psychoactive substance abuse, in remission Plan: She is now back on Methadone at 180 mg QD Follow up with the Methadone clinic as scheduled (4) Chronic pancreatitis: Code(s): K86.1 - Other chronic pancreatitis Qualifiers: Pancreatitis type: unspecified pancreatitis type Qualified Code(s): K86.1 - Other chronic pancreatitis Plan: Stable; patient currently remains asymptomatic and states that she has not had any recurrence of abdominal pains lately (5) Constipation: Code(s): K59.00 - Constipation, unspecified Qualifiers: Constipation type: other constipation type Qualified Code(s): K59.09 - Other constipation Plan: Advised again that this is most likely due to the effects of her Methadone Reinforced increased oral fluids and dietary fiber Per request, will start her back on Miralax 17 gm QD (6) Insomnia: Code(s): G47.00 - Insomnia, unspecified Qualifiers: Insomnia type: unspecified Qualified Code(s): G47.00 - Insomnia, unspecified Plan: Sleep hygiene reinforced Continue Doxepin 10 mg Q HS; was on Amitriptyline 50 mg Q HS previously but she stopped taking the Rx as it was reportedly making her feel dizzy (7) Depression: Code(s): F32.A - Depression, unspecified Qualifiers: Depression Type: major depressive disorder Major depression recurrence: recurrent Active/Remission status: currently active Major depression episode severity: unspecified Qualified Code(s): F33.9 - Major depressive disorder, recurrent, unspecified Plan: Was on Sertraline 50 mg QD and Bupropion XL 75 mg QD but patient inexplicably stopped taking these on her own Am unclear at this time what psychiatry has her on for her mood disorder other than Gabapentin and Clonazepam Follow up with psychiatry as scheduled Plan Follow up in 3 months Medications: New polyethylene glycol 3350 (Miralax) 17 grams PO DAILY 30 days 510 grams 5RF K59.09 - Other constipation Coding Level of Care Code Est Pt Level 4 (89454) Diagnoses Anxiety F41.9 Restless legs syndrome (RLS) G25.81 History of substance abuse F19.11 Chronic pancreatitis, unspecified pancreatitis type K86.1 Pancreatitis type: unspecified pancreatitis type Other constipation K59.09 Constipation type: other constipation type Insomnia, unspecified type G47.00 Insomnia type: unspecified Episode of recurrent major depressive disorder, unspecified depression episode severity F33.9 Depression Type: major depressive disorder Major depression recurrence: recurrent Active/Remission status: currently active Major depression episode severity: unspecified
[2024-02-20 12:52] VITALS: BP 100/70; PULSE 63; O2SAT 95; BMI 25.1
== END 2024-02-20 13:24 | disposition home or self-care (01) ==
PROVIDERS: PCP Internal Medicine; Visit Provider Internal Medicine
DX: F33.9 Major depressive disorder, recurrent, unspecified (principal); G25.81 Restless legs syndrome; F19.11 Other psychoactive substance abuse, in remission; K86.1 Other chronic pancreatitis; K59.09 Other constipation; G47.00 Insomnia, unspecified
CPT/HCPCS: 99214

== ENCOUNTER 2024-12-27 05:14 | Emergency (ER) | payer OTHER, SELFPAY ==
--- NOTE | ~2024-12-27 | CT_ITS ---
CLINICAL HISTORY: fall CT head without contrast Comparison: None Findings: No intra-axial mass, midline shift, hydrocephalus, or acute hemorrhage. No significant atrophy-like change or white matter disease. The visualized paranasal sinuses and mastoid air cells are normal. The orbits are unremarkable. There is no acute fracture. IMPRESSION: 1. No acute intracranial findings. This document has been electronically signed by: Jules Fischer MD on 12/27/2024 06:44:10
[2024-12-27 05:29] VITALS: BP 144/85; PULSE 100; RESP 20; TEMP 36.8; O2SAT 96; BMI 20.2
[2024-12-27 05:38] VITALS: BP 144/85; PULSE 100; RESP 20; TEMP 36.8; O2SAT 96
--- NOTE | 2024-12-27 07:18 | ED_ITS ---
HPI - Fall General Chief Complaint: Fall Stated Complaint: head injury Time Seen by Provider: 12/27/24 07:05 Source: patient Mode of arrival: ambulatory Limitations: no limitations History of Present Illness ED Provider: HPI Narrative: 44-year-old woman, states her tetanus is up-to-date, not on blood thinners, states she currently does not use alcohol or drugs 40 days clean, states she slipped on water and fell face down in the bathroom or getting up from a toilet did not have any chest pain shortness of breath there was no syncope. At the time of my evaluation patient does tend to talk a lot but she is not rambling she is able to focus on the incident and she is much, I guess from initial presentation when she was disoriented. Denies SI, HI. Related Data Home Medications ?Medication ?Instructions ?Recorded ?Confirmed psyllium husk 3.4 gram/5.4 gram 1 tbsp PO DAILY 10/10/23 02/20/24 oral powder (Metamucil) clonazepam 1 mg tablet 1 mg PO BID PRN anxiety 02/20/24 02/20/24 methadone 10 mg/mL oral syringe 180 mg PO DAILY 02/20/24 02/20/24 (FOR ORAL USE ONLY) Previous Rx's ?Medication ?Instructions ?Recorded loperamide 2 mg tablet 2 mg PO DIRECTED PRN Withdrawal 12/17/22 (Anti-Diarrheal (loperamide)) Symptoms #30 tabs ascorbic acid (vitamin C) 500 mg 500 mg PO DAILY 30 days #30 tabs 01/29/23 tablet doxepin 25 mg capsule 25 mg PO BEDTIME PRN for anxiety 09/02/23 #30 caps ropinirole 0.5 mg tablet 0.5 mg PO BEDTIME #30 tabs 02/11/24 drospirenone 3 mg-ethinyl 1 tab PO DAILY #28 tabs 04/04/24 estradiol 0.02 mg tablet lactulose 20 gram/30 mL oral 20 g (30 mL) PO BID PRN laxative 05/01/24 solution effect 15 days #1,200 mL multivitamin with folic acid 400 1 tab PO DAILY #90 tabs 05/24/24 mcg tablet (Daily-Kip (with folic acid)) polyethylene glycol 3350 17 17 g PO DAILY 30 days #510 grams 07/23/24 gram/dose oral powder (Miralax) nicotine (polacrilex) 4 mg gum 4 mg buccal Q2H PRN nicotine 11/03/24 (Nicorette) cravings 30 days #110 ea gabapentin 400 mg capsule 400 mg PO TID #90 caps 12/03/24 Allergies Allergy/AdvReac Type Severity Reaction Status Date / Time codeine Allergy Mild ITCHING Verified 12/27/24 05:35 [From Tylenol-Codeine #2] naloxone [From NARCAN] Allergy Unknown ITCHING, Verified 12/27/24 05:35 HIVES, THROAT CLOSES Codeine Sulfate Allergy Unknown pruritus Uncoded 12/27/24 05:35 TUNA FISH Allergy Unknown UNKNOWN Uncoded 12/27/24 05:35 Review of Systems Constitutional: Constitutional: Reports as per [facility] Past Medical History Medical History Depression Obesity (BMI 30-39.9) Constipation Smoker Overweight (BMI 25.0-29.9) Cellulitis of left ankle History of seizures Chronic pancreatitis Insomnia History of substance abuse Anxiety Surgical History No pertinent past surgical history Family History Family History Father Hypertension Mother Medical history unknown Paternal Grandmother Lung cancer Paternal Grandfather Bone cancer Maternal Uncle Mouth cancer Social History Social History Housing: House Alcohol intake: former Patient Tobacco Use Status: Former Tobacco user Smoked in Last 30 Days: No e-Cigarette/Vaping Use: Never Used Second Hand Smoke Exposure: Yes Use of substances other than those prescribed or required for medical reasons: No Substance Use Type: Former Substance User Do you have a plan to hurt others: No Plan Patient : No service: No Current occupational status: unemployed Cognitive needs: No Hearing needs: No Vision needs: No Physical Exam Vital Signs: Vital Signs: Last Vital Signs Temp 98.2 F 12/27/24 05:38 Pulse 100 12/27/24 05:38 Resp 20 12/27/24 05:38 BP 144/85 H 12/27/24 05:38 Pulse Ox 96 12/27/24 05:38 O2 Del Method Room Air 12/27/24 05:38 BMI result Body Mass Index 20.2 Const: Other: * Gen: ?Appears of stated age * HEENT: PERRLA, EOMI, no oral trauma * Neck: Supple, no LAD * CV: RRR, no obvious murmurs appreciated * Resp: ?No wheezing rales rhonchi no stridor moving air well * Abd: ?Bowel sounds are present, no tenderness no rebound no rigidity * MSK: FROM, strength 5/5 all extremities * Skin: 2 cm midline forehead laceration, superficial * Neuro: ?Alert and oriented x3, moving upper and lower extremities symmetrically, no obvious facial asymmetry noted Procedures Laceration Forehead: Site: scalp (Forehead) Size (cm): 2 Description: linear and clean Depth: simple, single layer Skin layer closed with: other (Dermabond) Medical Decision Making Medical Decision Making MDM Narrative: Presented after nonsyncopal fall, possibly ETOH use overnight however she denies that she states she has been clean for 40 days, at the time of my evaluation she is able to tell me story of what happened, she does have someone anxiety, she has a superficial wound that was closed with Dermabond, CT is negative, states tetanus up-to-date Radiology Impression Discussion of test interpretation with radiology: I have reviewed the radiologist's reading. Radiologist Impression: MPRESSION: 1. No acute intracranial findings. Discharge Plan Discharge Clinical Impression: Forehead laceration, Contusion of head Patient Disposition: Home, Self-Care Additional Instructions: Keep this skin glue area dry for the next 24 hours at least, thereafter do not rub for the next 2 3 days as the wound edges we will separate, otherwise you will have a small scar, gone out on the sun use a hat or sun block, typically a just tell people allow the skin glue to dry and follow up by itself, but an 2 3 days you should be able to restart washing your head without exclusively rubbing your forehead CT of the brain is negative Ice the area if it hurts, Tylenol as needed for pain, any redness, discharge of pus or any other evidence that may suggest an infection come back to the ER Prescriptions: No Action loperamide [Anti-Diarrheal (loperamide)] 2 mg tablet 2 mg PO DIRECTED PRN (Reason: Withdrawal Symptoms) Qty: 30 0RF ascorbic acid (vitamin C) 500 mg tablet 500 mg PO DAILY 30 Days Qty: 30 1RF doxepin 25 mg capsule 25 mg PO BEDTIME PRN (Reason: for anxiety) Qty: 30 1RF Metamucil 3.4 gram/5.4 gram powder 1 tbsp PO DAILY Rx Instructions: mix into at least 8 oz of water or juice before administering ropinirole 0.5 mg tablet 0.5 mg PO BEDTIME Qty: 30 3RF drospirenone-ethinyl estradiol 3-0.02 mg tablet 1 tab PO DAILY Qty: 28 0RF lactulose 20 gram/30 mL solution 20 g PO BID PRN (Reason: laxative effect) 15 Days Qty: 1200 0RF multivitamin with folic acid [Daily-Kip (with folic acid)] 400 mcg tablet 1 tab PO DAILY Qty: 90 3RF polyethylene glycol 3350 [Miralax] 17 gram/dose powder 17 g PO DAILY 30 Days Qty: 510 5RF nicotine (polacrilex) [Nicorette] 4 mg gum 4 mg buccal Q2H PRN (Reason: nicotine cravings) 30 Days Qty: 110 1RF gabapentin 400 mg capsule 400 mg PO TID Qty: 90 0RF methadone 10 mg/mL syringe 180 mg PO DAILY clonazepam 1 mg tablet 1 mg PO BID PRN (Reason: anxiety) Rx Instructions: Rx is being prescribed/refilled and managed by psychiatry, not by PCP Print Language: Georgian
--- OUTSIDE RECORDS SUMMARY | 2024-12-27 07:31 | XMS_ITS | Clinical Summary ---
Author Organization [employer] Address [address] [place] [address] Care Team Providers Care Teletypesetter Monitor Name Role Phone Unavailable Primary Care Provider Unavailabl e Social History Tobacco Use Types Packs/Day Years Used Date Smoking Tobacco: Never Assessed Comments Unknown Sex and Gender Information Value Date Recorded Sex Assigned at Female 05/20/2022 10:29 AM EDT Legal Sex Female 10:29 AM EDT Gender Identity Choose not to disclose 10:29 AM EDT Sexual Orientation Choose not to disclose 2021 10:29 AM EDT Plan of Treatment Health Maintenance Due Date Last Done Comments CT Colonography 1979 Colonoscopy 1979 Colorectal Cancer Screening 1979 Depression Screening 1979 FIT DNA/Cologuard 1979 FIT 1979 FOBT 1979 Sigmoidoscopy 1979 Disability Screening 1979 Alcohol/Substance Use Screening 1991 Tobacco Screening 1991 Family Planning (PISQ) 1994 DTaP/Tdap/Td Vaccines (1 - Tdap) 1998 Hepatitis B Vaccines (1 of 3 - 19+ 3-dose series) 1998 Pap Smear 2000 Cervical Cancer Screening 2009 HPV/Cotest 2009 Mammogram 2019 COVID-19 Vaccine ( - 2023-2 5 season) 2024 Influenza Vaccine (Season Ended) 2025 Zoster Vaccines (1 of 2) 2029 RSV Patients and Pa tients Aged 60 years or older (1 - 1-dose 75+ series) 2054 HIB Vaccines Aged Out No longer eligi ble based on patient's age to complete this topic HPV Vaccines Aged Out No longer eligi ble based on patient's age to complete this topic Hepatitis A Vaccines Aged Out No long er eligible based on patient's age to complete this topic IPV Vaccines Aged Out No longer eligi ble based on patient's age to complete this topic Meningococcal B Vaccine Aged Out No l onger eligible based on patient's age to complete this topic Meningococcal Vaccine Aged Out No malathi chichi eligible based on patient's age to complete this topic Pneumococcal Vaccine: Pediat rics (0 to 5 Years) and At-Risk Patients (6 to 49) Years) Aged Out No longer eligible b ased on patient's age to complete this topic RSV under 20 months Aged Out No longe r eligible based on patient's age to complete this topic Rotavirus Vaccines Aged Out No longer eligible based on patient's age to complete this topic
[2024-12-27 08:08] VITALS: BP 144/85; PULSE 100; RESP 20; TEMP 36.8; O2SAT 96
== END 2024-12-27 08:10 | disposition home or self-care (01) ==
PROVIDERS: Emergency Provider Emergency Medicine; PCP Internal Medicine
DX: S01.81XA Laceration without foreign body of other part of head, initial encounter (principal); R51.9 Headache, unspecified; W18.2XXA Fall in (into) shower or empty bathtub, initial encounter; Y93.9 Activity, unspecified; Y92.002 Bathroom of unspecified non-institutional (private) residence as the place of occurrence of the external cause; Y99.8 Other external cause status; Z79.899 Other long term (current) drug therapy; Z87.891 Personal history of nicotine dependence
CPT/HCPCS: 12001; 70450; 99284

== ENCOUNTER → 2024-12-27 05:43 | Outpatient (BNV) | payer OTHER, SELFPAY | PROVIDERS: PCP Internal Medicine; Visit Provider Radiology Vascular & Interventional Radiology | DX: G44.309 Post-traumatic headache, unspecified, not intractable (principal) | CPT/HCPCS: 70450 ==

== ENCOUNTER 2025-07-11 15:27 | Outpatient (AMB) | payer OTHER, SELFPAY ==
[2025-07-11 15:32] VITALS: BP 102/60; PULSE 73; RESP 18; O2SAT 98; BMI 21.4
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
--- OUTSIDE RECORDS SUMMARY | 2025-07-11 18:28 | XMS_ITS ---
Author Name [facility] Organization Unknown History of Medication Use Medication Directions Dispensed Refills Start Date End Date Stat us clonazePAM (KlonoPIN) tablet 1 mg 1 mg, Oral, Once, On [place] 03/04/24 at 0645, For 1 doseReproductive/B reast Feeding Risk: Use appropriate precautions for handling and disposal. 03/04/2024 03/09/2024 completed Allergies Allergen Reaction Severity Comment Documented Date Source Statu s CODEINE ITCHING 03/04/2024 [facility] active Problems Problem Status Onset Date Problem Type Date of Resoluti on Source Panic attacks active 2024-03-04 ProblemAct [facility] Anxiety active 2024-03-04 ProblemAct [facility] N Encounters Encounter Type Encounter Reason Primary Diagnosis Location Date Emergency Anxiety disorder, unspecified Anxiety disorder, unspecified [facility] [place] 03/04/2024 Care Team Organization Name Specialty Phone Email Start Date End Da te [facility] [place]
--- OUTSIDE RECORDS SUMMARY | 2025-07-11 18:28 | XMS_ITS | Clinical Summary ---
Author Organization [facility] Prior to 12/18/24 Address [address] [place] [address] Care Team Providers Care Paint Stripper Name Role Phone Unavailable Primary Care Provider Unavailabl e Allergies Active Allergy Reactions Criticality Noted Date Comments Codeine Itching Medium 03/04/2024 Medications No known medications Active Problems Problem Noted Date Diagnosed Date Anxiety 03/04/2024 Panic attacks 03/04/2024 Social History Tobacco Use Types Packs/Day Years Used Date Smoking Tobacco: Never Assessed Sex and Gender Information Value Date Recorded Sex Assigned at Female 03/04/2024 7:49 AM EDT Gender Identity Not on file Sexual Orientation Not on file Job Start Date Occupation Industry Not on file Not on file Not on file Last Filed Vital Signs Vital Sign Reading Time Taken Comments Blood Pressure 108/87 03/04/2024 6:20 AM EDT Pulse 56 03/04/2024 6:20 AM EDT Temperature 36.7 C (98 F) 03/04/2024 6:20 AM EDT Respiratory Rate 20 03/04/2024 6:20 AM EDT Oxygen Saturation 100% 03/04/2024 6:20 AM EDT Inhaled Oxygen Concentration - - Weight - - Height - - Body Mass Index - - Plan of Treatment Not on file
--- OUTSIDE RECORDS SUMMARY | 2025-07-11 18:28 | XMS_ITS | Clinical Summary ---
Author Organization [facility] [facility] Address [address] [place] [address] Care Team Providers Care Bridge/Structure Inspection Team Leader Name Role Phone Unavailable Primary Care Provider [...] Tobacco Screening 1991 Family Planning (PISQ) 1994 HPV Vaccines (1 - 3-dose series) 1994 DTaP/Tdap/Td Vaccines (1 - Tdap) 1998 Hepatitis B Vaccines (1 of 3 - 19+ 3-dose series) 1998 Pap Smear 2000 Cervical Cancer Screening 2009 HPV/Cotest 2009 Mammogram 2019 COVID-19 Vaccine (1 - 2024-2 6 season) 2025 Influenza Vaccine (#1) 2025 Zoster Vaccines (1 of 2) 2029 [...] Years) and At-Risk Patients (6 to 49) Years Aged Out No longer eligible b ased on patient's age to complete this topic RSV under 20 months Aged Out No longe r eligible based on patient's age to complete this topic Rotavirus Vaccines Aged Out No longer eligible based on patient's age to complete this topic
--- OUTSIDE RECORDS SUMMARY | 2025-07-11 18:28 | XMS_ITS | Clinical Summary ---
Author Organization [facility] Address [address] [place] [address] Care Team Providers Care Job Spotter Name Role Phone Pcp, No Primary Care Provider Unavailabl e Allergies Active Allergy Reactions Criticality Noted Date Comments Codeine Unknown/Patient and Family Unable to Define Medium 10/04/2018 Social History Tobacco Use Types Packs/Day Years Used Date Smoking Tobacco: Never Assessed Comments Unknown Sex and Gender Information Value Date Recorded Sex Assigned at Not on file Legal Sex Female 10:01 AM EDT Gender Identity Not on file Sexual Orientation Not on file Last Filed Vital Signs Vital Sign Reading Time Taken Comments Blood Pressure 108/70 10/04/2018 5:42 PM EDT Pulse 113 10/04/2018 5:42 PM EDT Temperature 36.6 C (97.9 F) 10/04/2018 5:42 PM EDT Respiratory Rate 18 10/04/2018 5:42 PM EDT Oxygen Saturation 98% 10/04/2018 5:42 PM EDT Inhaled Oxygen Concentration - - Weight - - Height - - Body Mass Index - - Plan of Treatment Health Maintenance Due Date Last Done Comments Hepatitis C Virus Screening 1979 HIV Screening 1992 DTaP/Tdap/Td Vaccines (1 - Tdap) 1998 Hepatitis B Vaccines (1 of 3 - 19+ 3-dose series) 1998 COVID-19 Vaccine (2024-2 6 season) 2025 HPV Vaccines (No Doses Required) Completed Pneumococcal Vaccine: Pediat zak (0-5 Years) and At-Risk Patients (6 to 49 Years) Aged Out No longer eligible b ased on patient's age to complete this topic Care Teams Job Spotter Relationship Specialty Start Date End Date Pcp, No PCP - General 10/04/18
--- OUTSIDE RECORDS SUMMARY | 2025-07-11 18:28 | XMS_ITS | Clinical Summary ---
Author Organization [facility] Address [address] [place] [phone] Phone Care Team Providers Care Polisher Numeral Name Role Phone Physician, No Pcp Primary Care Provider Unavaila ble Allergies No known active allergies Medications clonazePAM (KlonoPIN) 1 mg tablet Take 1 tablet (1 mg total) by mouth 2 (two) times a day as needed for anxiety for up to 4 days. 8 tablet 03/04/2024 Active Social History Tobacco Use Types Packs/Day Years Used Date Smoking Tobacco: Never Assessed Comments Unknown Sex and Gender Information Value Date Recorded Sex Assigned at Not on file Legal Sex Female 5:35 PM EST Gender Identity Not on file Sexual Orientation Not on file Last Filed Vital Signs Vital Sign Reading Time Taken Comments Blood Pressure 127/77 01/07/2025 9:33 AM EDT Pulse 55 01/07/2025 9:33 AM EDT Temperature 36.6 C (97.9 F) 01/07/2025 9:33 AM EDT Respiratory Rate 19 01/07/2025 9:33 AM EDT Oxygen Saturation 99% 01/07/2025 9:33 AM EDT Inhaled Oxygen Concentration - - Weight 52.2 kg (115 lb) 01/07/2025 9:33 AM EDT Height 167.6 cm (5' 6 ) 01/07/2025 9:33 AM EDT Body Mass Index 18.56 01/07/2025 9:33 AM EDT Plan of Treatment Health Maintenance Due Date Last Done Comments Breast Cancer Screening 1979 Colorectal Cancer Screening: Colonoscopy 1979 DTaP,Tdap,and Td Vaccines (1 - Tdap) 1998 Hepatitis B Vaccines (1 of 3 - 19+ 3-dose series) 1998 Cervical Cancer Screening: P ap Smear 2000 HPV Vaccines (1 - 3-dose SCD M series) 2006 HIV Screening 04/23/2024 Hepatitis C Screening 04/23/2024 Social Influencers of Health Screening 04/23/2024 Depression Screening 07/21/2024 COVID-19 Vaccine ( - 2024-2 6 season) 2025 Influenza Vaccine (#1) 2025 RSV Immunization Adult Patie nts (1 - 1-dose 75+ series) 2054 HIB Vaccines Aged Out No longer eligi ble based on patient's age to complete this topic Hepatitis A Vaccines Aged Out No long er eligible based on patient's age to complete this topic IPV Vaccines Aged Out No longer eligi ble based on patient's age to complete this topic MMR Vaccines Aged Out No longer eligi ble based on patient's age to complete this topic Meningococcal ACWY Vaccine Aged Out N o longer eligible based on patient's age to complete this topic Meningococcal B Vaccine Aged Out No l onger eligible based on patient's age to complete this topic Pneumococcal Vaccine: Pediat rics (0 to 5 Years) and At-Risk Patients (6 to 49 Years) Aged Out No longer eligible b ased on patient's age to complete this topic RSV Immunization Patients Un rian 20 months Aged Out No longer eligible b ased on patient's age to complete this topic Varicella Vaccines Aged Out No longer eligible based on patient's age to complete this topic Insurance [place] - [place] Care Teams Polisher Numeral Relationship Specialty Start Date End Date Physician, No Pcp PCP - General 01/07/25
== END 2025-07-11 16:37 | disposition home or self-care (01) ==
LOC: HO.HMCH 15:27
PROVIDERS: PCP Internal Medicine
DX: Z00.00 Encounter for general adult medical examination without abnormal findings (principal); K86.1 Other chronic pancreatitis; K59.09 Other constipation; F19.11 Other psychoactive substance abuse, in remission; G47.00 Insomnia, unspecified; F41.9 Anxiety disorder, unspecified; F17.200 Nicotine dependence, unspecified, uncomplicated; F33.9 Major depressive disorder, recurrent, unspecified; D64.9 Anemia, unspecified; G25.81 Restless legs syndrome

== ENCOUNTER 2025-07-11 15:27 | Outpatient (REF) | payer OTHER, SELFPAY ==
[2025-07-11 18:05] LABS: Alanine Aminotransferase 28 U/L (0-31); Albumin Level 4.4 g/dL (3.5-5.0); Alkaline Phosphatase 72 U/L (39-117); Anion Gap 12 (12-20); Aspartate Amino Transferase 35 U/L (5-31); Blood Urea Nitrogen 17 mg/dL (9-16); Calcium 9.2 mg/dL (8.4-10.2); Carbon Dioxide 28 mmol/L (22-29); Chloride 102 mmol/L (96-108); Estimated Glomerular Filt Rate > 60; Potassium 4.1 mmol/L (3.3-5.1); Sodium 138 mmol/L (135-145); Total Protein 7.3 g/dL (6.5-8.0)
[2025-07-11 18:17] LABS: Hematocrit 33.9 % (37.0-47.0); Hemoglobin 11.5 g/dl (12.0-16.0); Imm Gran Abs Auto 0.01 X10*3/uL (0.00-0.03); Imm Gran Pct Auto 0.2 % (0.0-0.4); Lymphocytes Absolute Auto 1.8 X10*3/uL (1.2-4.9); MANUAL DIFF FLAG SCAN; Mean Corpuscular HGB Conc 33.9 g/dl (31.0-35.0); Mean Corpuscular Hemoglobin 30.2 pg (27.0-33.0); Mean Corpuscular Volume 89.0 fL (80.0-98.0); NRBC Abs Auto 0.000 X10*3/uL (0.0-0.012); NRBC Pct Auto 0.0 /100WBC (0.0-0.2); PLT CLUMP 1; Red Blood Count 3.81 X10*6/uL (4.20-5.50); SCAN SMEAR FLAG 1
[2025-07-11 18:25] LABS: White Blood Count 5.8 X10*3/uL (4.8-10.8)
[2025-07-11 18:28] LABS: Platelet Count 163 X10*3/uL (160-400)
[2025-07-11 18:51] LABS: Appearance Urine Clear; Glucose Urine UA Negative (Negative); PH 7.0 (5.0-9.0); Specific Gravity - Urine 1.015 (1.005-1.025)
== END 2025-07-11 15:28 | disposition home or self-care (01) ==
LOC: HO.LAB 15:27
PROVIDERS: PCP Internal Medicine
DX: Z00.00 Encounter for general adult medical examination without abnormal findings (principal); F11.20 Opioid dependence, uncomplicated; F41.9 Anxiety disorder, unspecified; K86.1 Other chronic pancreatitis; K59.09 Other constipation; F19.11 Other psychoactive substance abuse, in remission; G47.00 Insomnia, unspecified; Z87.891 Personal history of nicotine dependence; F33.9 Major depressive disorder, recurrent, unspecified; D64.9 Anemia, unspecified; G25.81 Restless legs syndrome
CPT/HCPCS: 36415; 80053; 81003; 82306; 83036; 84443; 85025; 99396